=== PATIENT | male | born 1955 | race Caucasian/White ===

== ENCOUNTER 2021-06-19 16:16 | Outpatient (REF) | payer BC, OTHER, SELFPAY ==
[2021-06-21 13:07] LABS: COVID-19 RT-PCR UVMMC Result Negative (Negative)
== END 2021-06-19 16:17 | disposition home or self-care (01) ==
LOC: LBN 16:16
PROVIDERS: Visit Provider Family Medicine
DX: Z20.822 Contact with and (suspected) exposure to COVID-19 (principal)
CPT/HCPCS: U0003

== ENCOUNTER 2021-08-09 17:48 | Outpatient (REF) | payer BC, OTHER, SELFPAY | END 2021-08-09 17:49 | disposition home or self-care (01) | LOC: LBN 17:48 | PROVIDERS: PCP Nurse Practitioner Family; Visit Provider Nurse Practitioner Family | DX: H92.10 Otorrhea, unspecified ear (principal) | CPT/HCPCS: 87077; 87070; 87186; 87205 ==

== ENCOUNTER 2021-08-15 03:02 | Outpatient (CLI) | payer BC, SELFPAY ==
[2021-08-15 11:36] LABS: HCT 43.4 % (40.0-50.0); HGB 14.9 g/dL (13.5-17.5); MCH 31.7 pg (27.0-33.0); MCHC 34.3 % (32.0-36.0); MCV 92.3 fL (80-95); MPV 9.7 fL (8.0-11.0); Platelet Count 275 10^3/uL (130-400); RDW 12.8 % (11.8-14.1); WBC 6.07 10^3/uL (4.4-10.8)
[2021-08-15 12:47] LABS: Iron 179 ug/dL (65-175); Total Iron Binding Capacity 226 ug/dL (250-450); Transferrin Sat 79 % (20-55)
[2021-08-15 13:00] LABS: Ferritin 107 ng/mL (26-388)
[2021-08-15 13:28] LABS: TSH (W/Ref FT4) 3.96 uIU/mL (0.36-3.74)
[2021-08-15 13:50] LABS: FREE T4 1.14 ng/dL (0.76-1.46)
== END 2021-08-15 03:03 | disposition home or self-care (01) ==
LOC: LBO 03:02
PROVIDERS: Family Medicine; PCP Nurse Practitioner Family; Visit Provider Nurse Practitioner Family
DX: E03.9 Hypothyroidism, unspecified (principal); E83.119 Hemochromatosis, unspecified
CPT/HCPCS: 85027; 82728; 83540; 83550; 84439; 84443

== ENCOUNTER 2021-09-12 16:46 | Outpatient (CLI) | payer BC, OTHER, SELFPAY ==
[2021-09-12 15:08] LABS: Abs Immature Grans 0.04 10^3/uL (0.0-0.06); Absolute Basophil Count 0.07 10^3/uL (0.0-0.2); Absolute Eosinophil Count 0.43 10^3/uL (0.0-0.7); Absolute Lymphocyte Count 1.84 10^3/uL (1.2-3.4); Absolute Monocyte Count 0.79 10^3/uL (0.1-0.8); Basophils % 0.9; Eosinophils % 5.8; HCT 40.9 % (40.0-50.0); HGB 14.4 g/dL (13.5-17.5); Immature Grans % 0.5; Lymphocytes % 24.6; MCH 32.4 pg (27.0-33.0); MCHC 35.2 % (32.0-36.0); MCV 92 fL (80-95); MPV 10.4 fL (8.0-11.0); Monocytes % 10.6; Neutrophils % 57.6; Platelet Count 215 10^3/uL (130-400); RBC 4.45 10^6/uL (4.36-5.78); RDW 12.2 % (11.8-14.1); RDW-SD 41.1 fL; WBC 7.47 10^3/uL (4.4-10.8)
[2021-09-12 15:08] LABS: Bilirubin Small (Negative); Blood Negative (Negative); Clarity Clear (Clear); Glucose Negative (Negative); Ketones Negative (Negative); Leukocyte Esterase Negative (Negative); Nitrite Negative (Negative); Specific Gravity >= 1.030 (1.005-1.025); Urobilinogen 0.2 EU/dL (Up TO 0.2); pH 5.5 (5-8)
[2021-09-12 15:16] LABS: Bacteria Few HPF (Negative); Crystals Negative HPF (Negative); Epithelial Cells Few HPF (Negative); RBC 0-2 HPF (0-2); WBC 0-2 HPF (0-5)
[2021-09-12 15:17] LABS: C & S Indicated? No; Casts Negative LPF (Negative); Mucus Heavy (Negative)
[2021-09-12] MEDS: Gastrografin 120 ML BTL 25 ML PO (15:19)
[2021-09-12] MEDS: Barium Sulfate 2% W/V-Berry Smoothie 450 ML BTL 900 ML PO (15:23)
[2021-09-12 15:24] LABS: C-Reactive Protein 0.17 mg/dL (0.0-0.3); Lipase 87 U/L (73-393)
[2021-09-12 15:33] LABS: ALT 43 U/L (16-63); AST 16 U/L (15-37); Alkaline Phosphatase 97 U/L (46-116); Anion Gap 8.3 mmol/L (3-11); BUN 23 mg/dL (7-18); Bilirubin, Total 0.5 mg/dL (0.2-1.0); CO2 26.7 mmol/L (21.0-32.0); Calcium 8.7 mg/dL (8.5-10.1); Chloride 104 mmol/L (98-107); Glucose 103 mg/dL (74-106); Sodium 139 mmol/L (136-145); Total Protein 7.8 g/dL (6.4-8.2)
--- NOTE | 2021-09-12 16:38 | DI.CT_ITS ---
Exam(s) CT ABDOMEN PELVIS WO EXAM: CT ABDOMEN PELVIS WO CLINICAL HISTORY: mod-severe LLQ pain-eval acute process/ R19.8 R/O DIVERTICULITIS. TECHNIQUE: Imaging Protocol: Axial computed tomography images with coronal and sagittal reformatted images were created and reviewed. Oral: yes COMPARISON: No exams were available for comparison FINDINGS: ABDOMEN: Lung Bases: Lung normal where visualized. Heart size normal. Small hiatal hernia. Liver: Normal density. No measurable mass. Gallbladder and biliary tract: No radiodense calculus or dilation. Pancreas: Normal density, no abnormal calcifications or inflammatory process. Spleen: Normal. Kidneys: Normal size, contour and axis. No radiodense stones or obstructive uropathy. No masses seen. Adrenal glands: No masses seen. Lymph nodes: Within normal limits. Abdominal Aorta: Abdominal portion non-dilated. Minimal calcification. PELVIS: Bladder: Low volume. No gross wall thickening. Bowel: No obstruction or bowel wall thickening. Mild diverticulosis at the junction of the descendin g and sigmoid colon. No evidence of diverticulitis. Appendix normal. Peritoneal cavity: No ascites, collection or mesenteric inflammatory response. Reproductive organs: Enlarged prostate. 6.2 x 5.4 x 6.9 cm. Bones: Scoliosis and degenerative changes. IMPRESSION: Mild diverticulosis at the junction of descending and sigmoid colon. No evidence of diverticulitis o r other acute abnormality. Prostate is noted to be enlarged. RADIATION DOSE DELIVERED: 1,146.92mGy.cm Total DLP DATA REPOSITORY: All CT scans at this facility are submitted to the National Radiology Data Registry (NRDR) Dose Index Registry (DIR) with the [employer] (ACR). RADIATION OPTIMIZATION: All CT scans at this facility use at least one of these dose optimization te chniques: automated exposure control; mA and/or kV adjustment per patient size (includes targeted exa ms where dose is matched to clinical indication); or iterative reconstruction.
== END 2021-09-12 17:06 ==
PROVIDERS: PCP Nurse Practitioner Family; Visit Provider Family Medicine
DX: R10.32 Left lower quadrant pain (principal); I10 Essential (primary) hypertension; E03.9 Hypothyroidism, unspecified; K57.30 Diverticulosis of large intestine without perforation or abscess without bleeding; N40.0 Benign prostatic hyperplasia without lower urinary tract symptoms
CPT/HCPCS: 80053; 83690; 74176; 81003; 81015; 84443; 85025; 86140

== ENCOUNTER → 2022-02-27 01:42 | Outpatient (CLI) | payer BC, OTHER, SELFPAY ==
--- NOTE | 2022-02-27 08:30 | DI.MRI_ITS ---
Exam(s) MR LUMBAR SPINE WO/W EXAM: MR LUMBAR SPINE WO/W CLINICAL HISTORY: LUMBAR SCOLIOSIS, M41.9; DDD, LUMBAR, M51.36; LUMBAR STENOSIS, M48.061. TECHNIQUE: Multiplanar multisequence MRI of the Lumbar spine was performed. Both pre and post contra st infused sequences were performed. IV contrast injected was 19 mL Dotarem. Compared to prior MRI scan of 09/21/2021. COMPARISON: CT CT ABDOMEN PELVIS WO from 09/12/2021 MR MR LUMBAR SPINE WO from 09/21/2021 FINDINGS: There are no plain films available at the time of this MRI interpretation and therefore 5 lumbar vert ebrae are again presumed. Scoliosis convex left is again noted. The extent of scoliosis is unchanged. Epicenter of the scolio sis is again noted be at L1-2 and L2-3 levels where there is more prominent narrowing of the right si de of these disc spaces when compared to the left side of the disc spaces. Bones: Multilevel Modic type 2 sub endplate marrow fatty changes again noted, related to the multilev el chronic degenerative disc disease. No fractures nor ominous osseous lesions evident. Conus medullaris is at normal level. There is no evidence of conus mass nor subjacent clumping of in trathecal nerve roots to suggest arachnoiditis. The distal thecal sac appears unremarkable.There is no evidence of Tarlov intrasacral cysts nor other significant findings within the sacral canal. In this patient has had prior surgery there is no evidence of epidural nor some paraspinal abscess. No evidence of discitis nor osteomyelitis. There is no asymmetric atrophy of the psoas muscles. With respect to the individual levels... T12-L1: Relatively preserved disc height. There is again noted lateral left annular bulging into the floor of the exiting left neural foramen resulting in mild left-sided foraminal stenosis. Similar t o previous. Central canal dimensions are within normal limits. Mild facet arthropathy again noted. L1-2: This level again exhibits advanced disc space narrowing which is more prominent on the right si de of the disc space where there are again noted Modic type 2 sub endplate fatty marrow changes. The re is annular bulging into the floor of the exiting right neural foramen although there does not appe ar to be prominent foraminal stenosis. Exiting left neural foramen is patent. Central canal dimensi ons at this level are lower normal. Moderate bilateral facet arthropathy again noted. L2-3: There is surgical absence of posterior osseous elements again noted at this level. Central can al dimensions are lower normal. This level also again exhibits asymmetric advanced narrowing of the right side of the disc space with lesser amount of narrowing of the left side of the disc space.. Ap pearance of this level is similar to previous with disc/osteophyte bulging into the floor of the exit ing right neural foramen but no prominent foraminal stenosis on the right side at this level. On the left side there is an element of foraminal stenosis again noted, related to facet arthropathy. Esse ntially no change at this level from the prior MRI study. L3-4: This level again exhibits disc space narrowing on the left side with relative preservation of d isc height on the right side of the disc space. There is moderate severe central canal stenosis agai n noted at this level which is related to broad annular bulging and short AP dimensions the pedicles as well as facet arthropathy on both sides. There is also some posterior bony ridging again noted. Foraminal stenosis on the left side is again noted related to annular bulging and facet arthropathy. There is minimal foraminal narrowing on the opposite-right side. L4-5: This level exhibits decreased disc height on the left side annular bulging into the floor of th e exiting left neural foramen with mild left foraminal narrowing. Mild central canal stenosis at thi s level again noted. No foraminal stenosis on the right side. Moderate facet arthropathy, slightly more so on the left side. L5-S1: This level again exhibits normal disc height and signal with no disc herniation or canal steno sis nor foraminal stenosis on either side although there is some degenerative change in the facet carlos eduardo nts bilaterally at this level. Soft tissues: paraspinal soft tissues appear unremarkable.No evidence of paraspinal abscess. IMPRESSION: 1. As above but without significant change compared to prior MRI scan of 09/21/2021. 2. In this patient who has had prior surgery there is no evidence of epidural nor paraspinal abscess. There is also no evidence of discitis nor osteomyelitis. DATA REPOSITORY:
--- NOTE | 2022-02-27 08:30 | DI.MRI_ITS ---
Exam(s) MR CERVICAL SPINE WO EXAM: MR CERVICAL SPINE WO CLINICAL HISTORY: GAIT INSTABILITY, R26.81 TECHNIQUE: Multiplanar multisequence MRI of the cervical spine was performed without intravenous con trast. COMPARISON: There are no plain films of the MRI scan available at the time of this MRI interpretatio n. FINDINGS: CERVICOMEDULLARY JUNCTION: Intact with no evidence of cerebellar tonsillar ectopia. No obvious abnor mality of the odontoid process. No evidence of Chiari 1 malformation. CERVICAL SPINAL CORD: There is no abnormal signal in the cervical spinal cord and no evidence of foca l cord atrophy nor focal cord swelling. OSSEOUS:There are no cervical fractures evident. No significant osseous lesions in the cervical vert ebrae. INDIVIDUAL LEVELS: C2-3: No evidence of disc herniation or central canal stenosis. There are some degenerative changes in the facet joints at this level, left more so than right. Mild bilateral foraminal stenosis eviden t. C3-4: Normal disc height. Mild annular bulging without a distinct disc herniation. No central canal stenosis. Moderate degenerative changes evident in both facet joints at this level. Some bilateral foraminal stenosis is evident. C4-5: Normal disc height. No significant disc herniation. No central spinal canal stenosis. Modera te degenerative change in both facet joints. Mild bilateral foraminal stenosis. C5-6: This level exhibits chronic moderate-advanced disc space narrowing and anterior osteophytes. P osteriorly there is annular bulging and what appears to be a small left paracentral disc protrusion, more evident on the axial than on the sagittal images. This extends posteriorly 2 millimeters and is approximately 2 millimeters wide. Indents the thecal sac. There is no prominent central canal sten osis at this level. There are small Luschka joint osteophytes bilaterally at this level. There are mild degenerative changes in both facet joints. Mild bilateral foraminal stenosis. C6-7: This level also exhibits chronic disc space narrowing. There is mild symmetrical annular bulgi ng at this level but without a significant disc herniation. Central canal dimensions are lower betsey l. There are moderate degenerative changes in the left facet joint and minimal if any significant de generative changes in the right facet joint. There is mild left-sided foraminal stenosis. No obviou s foraminal stenosis on the right side. C7-T1: No disc herniation nor central canal stenosis. Moderate facet arthropathy on the left side wit h mild-moderate left-sided foraminal stenosis.. Mild facet changes on the right. IMPRESSION: 1. Degenerative disc disease at C5-6 and C6-7 levels with what appears to be a small 2 millimeter le ft paracentral disc protrusion at C5-6 level, as described above. There is, however, no significant central canal stenosis at this level nor elsewhere in the cervical spine. 2. There is multilevel foraminal stenosis as described above, this related to facet arthropathy at mu ltiple levels. 3. No abnormal signal in the cervical spinal cord. No focal cord swelling. No focal cord atrophy. No evidence of cerebellar tonsillar ectopia. DATA REPOSITORY:
[2022-02-27 09:06] LABS: CREATININE 1.2 mg/dL (0.70-1.30); Estimated GFR 66.28 (mL/min/1.73m2)
[2022-02-27] MEDS: Normal Saline Flush 10 ML SYR IVP (09:31)
[2022-02-27] MEDS: Gadoterate meglumine 20 ML SYRINGE 19 ML IVP (09:32)
== END ==
PROVIDERS: PCP Nurse Practitioner Family; Visit Provider Physician Assistant Surgical
DX: M47.812 Spondylosis without myelopathy or radiculopathy, cervical region (principal); M50.222 Other cervical disc displacement at C5-C6 level
CPT/HCPCS: 72158; 72141; 82565

== ENCOUNTER 2022-06-14 08:37 | Outpatient (CLI) | payer BC, OTHER, SELFPAY ==
[2022-06-14 12:39] LABS: TSH 4.92 uIU/mL (0.36-3.74)
== END 2022-06-14 08:38 | disposition home or self-care (01) ==
LOC: LOS 08:38
PROVIDERS: PCP Nurse Practitioner Family; Referring Provider Family Medicine; Visit Provider Family Medicine
DX: E03.9 Hypothyroidism, unspecified (principal)
CPT/HCPCS: 36415; 84443

== ENCOUNTER 2022-06-14 16:50 | Outpatient (REF) | payer BC, OTHER, SELFPAY | END 2022-06-14 16:51 | disposition home or self-care (01) | LOC: LBN 16:50 | PROVIDERS: PCP Nurse Practitioner Family; Visit Provider Family Medicine | DX: J02.9 Acute pharyngitis, unspecified (principal) | CPT/HCPCS: 87070 ==

== ENCOUNTER 2022-09-04 13:32 | Outpatient (CLI) | payer BC, OTHER, SELFPAY ==
--- NOTE | 2022-09-04 06:00 | DI.RAD_ITS ---
Exam(s) XR PAIN CLINIC LUMBAR SP 2V EXAM: XR PAIN CLINIC LUMBAR SP 2V CLINICAL HISTORY: Dx: Lumbar Radiculopathy. TECHNIQUE: Fluoroscopy was provided for the referring physician for guidance with performing pain cl inic injection procedure. COMPARISON: No exams were available for comparison FINDINGS: Please see procedure note for details. Fluoro time: 22.5 seconds RADIATION DOSE DELIVERED: Ka,r=11.4 mGy
[2022-09-04 13:47] VITALS: BP 120/83; PULSE 75; RESP 20; TEMP 36.6; O2SAT 96
--- NOTE | 2022-09-04 14:16 | PDOC.PAIN ---
Date of service: 09/04/22 Time of Service: 14:22 Pain Managment Procedure Note Procedure Note Procedure Note: CAUDAL EPIDURAL STEROID WITH CATHETER INJECTION PROCEDURE NOTE COMMENTS: I previously evaluated him in the office. He has a contrast allergy from [address] scan. No contrast was used today. Pre-procedure pain VAS was 7/10. Dx: Lumbosacral radiculopathy Jeremias Portillo has been referred to the [facility] for lumbar epidural steroid injection. Patient was greeted by the nurse who verified the patient?s name and .? Patient was then taken to the fluoroscopy suite. The patient was interviewed and the medical record was reviewed.? There were no medical, pharmacologic, radiographic, or other structural contraindications to attempting fluoroscopically guided caudal epidural steroid injection. Risks and expected side effects as well as potential benefits of the procedure were reviewed and voiced concerns addressed.? The patient consent form was signed.? Standard time-out procedure was performed. The patient was placed in the prone position on the fluoroscopy table and automated blood pressure cuff, pulse oximeter, and 3 lead EKG was applied.? The skin entry point for entering/approaching the sacral hiatus was marked.? Following thorough chlorhexadine preparation of the skin and draping and 1% lidocaine infiltration of the skin entry point and subcutaneous tissues, a 17 gauge Touhy needle was placed under fluoroscopic guidance through the sacral hiatus.? Needle tip placement and depth were aided and confirmed by fluoroscopy. There was no paresthesia or return of blood or CSF through the needle. A 19G Arrow spinal catheter was threaded to the L5-S1 height confirmed with fluoroscopy.? Aspiration was performed with no resulting blood or clear fluid. 1.5 cc of dexamethasone (10 mg/cc) was injected.? This was followed by 2 cc of 1% Lidocaine to flush the catheter.?There was not any unusual discomfort expressed.? The needle and catheter were removed together without difficulty. Vital signs were stable throughout the procedure and were as recorded in nursing records.? Follow up plans and appointments were discussed.? Post procedure instruction was given as documented in nursing records and having met discharge criteria and was discharged from the [facility]. Comments: Post-procedure pain VAS was 3/10. If he has at least 50% pain relief or 50% functional improvement for at least 3 months, this procedure can be repeated. Vladislav Ngo DO, MPH [facility] [place]
[2022-09-04 14:23] VITALS: BP 126/80; PULSE 86; RESP 16; O2SAT 95
[2022-09-04] MEDS: Dexamethasone Sod. Phos./Pres-Free 10 MG/ML VIAL IJ (14:31)
== END 2022-09-04 13:33 | disposition home or self-care (01) ==
PROVIDERS: PCP Nurse Practitioner Family; Visit Provider Preventive Medicine Occupational Medicine
DX: M47.26 Other spondylosis with radiculopathy, lumbar region (principal)
CPT/HCPCS: 62323; 72100

== ENCOUNTER 2022-10-21 14:02 | Outpatient (CLI) | payer BC, SELFPAY ==
[2022-10-21 14:50] LABS: Magnesium 2.2 mg/dL (1.8-2.4); Vitamin B12 297 pg/mL (193-986)
== END 2022-10-21 14:03 | disposition home or self-care (01) ==
LOC: LBO 14:07
PROVIDERS: PCP Nurse Practitioner Family; Visit Provider Family Medicine
DX: E83.119 Hemochromatosis, unspecified (principal)
CPT/HCPCS: 36415; 82607; 83735

== ENCOUNTER 2022-11-04 14:30 | Outpatient (CLI) | payer BC, OTHER, SELFPAY ==
--- NOTE | 2022-11-04 14:30 | RT.EKG_ITS ---
APPROVED REPORT Exam: Resting ECG Reason for Exam: Heart rate high Patient Location: O HR:113 bpm ECG Measurements Heart Rate 113 AXIS TN 143 P 47 QRSd 92 QRS 2 QT 315 T 28 QTc 432 Conclusion Sinus tachycardia...rate> 99 Otherwise normal ECG
== END 2022-11-04 14:31 | disposition home or self-care (01) ==
PROVIDERS: PCP Nurse Practitioner Family; Visit Provider Physician Assistant
DX: R07.89 Other chest pain (principal)
CPT/HCPCS: 93010

== ENCOUNTER 2022-12-24 09:51 | Outpatient (CLI) | payer BC, OTHER, SELFPAY ==
--- NOTE | 2022-12-24 06:00 | DI.RAD_ITS ---
Exam(s) XR PAIN CLINIC LUMBAR SP 2V EXAM: XR PAIN CLINIC LUMBAR SP 2V CLINICAL HISTORY: Dx: Lumbar Radiculopathy. TECHNIQUE: Fluoroscopy was provided for the referring physician for guidance with performing pain cl inic injection procedure. COMPARISON: No exams were available for comparison FINDINGS: Please see procedure note for details. Fluoro time: 23.5 seconds RADIATION DOSE DELIVERED: Ka,r=16.25 mGy
[2022-12-24 10:16] VITALS: BP 133/85; PULSE 71; RESP 20; TEMP 36.7; O2SAT 96
[2022-12-24] MEDS: Dexamethasone Sod. Phos./Pres-Free 10 MG/ML VIAL IJ (11:23)
[2022-12-24 11:24] VITALS: BP 145/91; PULSE 73; RESP 19; O2SAT 98
--- NOTE | 2022-12-24 13:28 | PDOC.PAIN ---
Date of service: 12/24/22 Time of Service: 12:00 Pain Managment Procedure Note Procedure Note Procedure Note: PROCEDURE NOTE CAUDAL EPIDURAL STEROID INJECTION Date of Service: December 24, 2022 Patient:Jeremias Koehler? Provider:? Vladislav Ngo DO, MPH Jeremias Portillo has been referred to the [facility] for caudal epidural steroid injection.? Pre-operative diagnosis: Lumbosacral Radiculopathy Post-operative diagnosis: Same Pre-Procedure Pain: VAS= 8/10. COMMENTS: He had this procedure on 09/04/2022 and had >50% pain relief for >3 months. He has also been move active with his grandchildren. Juanwas interviewed and the medical record was reviewed.? There were no medical, pharmacologic, radiographic or other structural contraindications to attempting fluoroscopically guided epidural steroid injection.? Risks and expected side effects as well as potential benefit of the procedure were reviewed with Juan, and the patient's voiced concerns were addressed.? The printed consent form was signed.? Standard time-out procedure was performed. Juan was placed in the prone position on the fluoroscopy table and automated blood pressure cuff and pulse oximeter applied.? The skin entry point for entering/approaching the epidural space by a caudal approach through the sacral hiatus ed identified with surgical skin marking.? Following thorough chlorhexidine preparation of the skin and draping and 1% lidocaine infiltration of the skin entry point and subcutaneous tissues, a 17 gauge Touhy needle was placed under fluoroscopic guidance? into the epidural space. Needle tip placement and depth were aided and confirmed by fluoroscopy in the lateral and AP position. There was no paresthesia or return of blood or CSF through the needle. 1 cc of Omnipaque 240 was injected with clear epidural spread confirmed with fluoroscopy. An Arrow 19G radio-opaque epidural catheter was advanced into the epidural space to the L5-S1 level and 2 cc of Omnipaque 240 was injected with clear epidural spread. 80 mg of Depo-Medrol was? injected. There was no unusual discomfort expressed by Jeremias. The needle and catheter were then flushed with 1 cc of 1% Lidocaine and they were removed together without difficulty (49 cc of Omnipaque was wasted). Jeremias was observed and was without hemodynamic, neurologic, or allergic reactions.? Fluoroscopic images were digitally archived. Jeremias's vital signs were stable throughout the procedure and were as recorded in the docflowsheet by the nursing staff.? If given, dosages of intravenous drugs for anxiolysis and analgesia were documented in MAR. Follow up plans and appointments were discussed with Jeremias.? Post procedure instruction was given as documented in nursing documentation and having met discharge criteria, Jeremias [facility] the [facility]. ? COMMENTS: No apparent complications.? Post-procedure pain: VAS= 3/10. If the patient receives at least 50% improvement in pain and/or function for at least 3 months, this procedure can be repeated. I personally completed the entire procedure. VLADISLAV NGO DO, MPH [facility] - Subspecialty board certification in Pain Medicine [facility]
== END 2022-12-24 09:52 | disposition home or self-care (01) ==
LOC: PC 09:51
PROVIDERS: PCP Nurse Practitioner Family; Visit Provider Preventive Medicine Occupational Medicine
DX: M54.50 Low back pain, unspecified (principal); M54.17 Radiculopathy, lumbosacral region
CPT/HCPCS: 62323; 72100

== ENCOUNTER → 2023-10-03 13:04 | Outpatient (BNVA) | payer MEDICARE, OTHER, SELFPAY | PROVIDERS: PCP Nurse Practitioner Family; Referring Provider Nurse Practitioner Family; Visit Provider Physical Therapy Assistant | DX: L72.3 Sebaceous cyst (principal) | CPT/HCPCS: 11402 ==

== ENCOUNTER → 2023-10-10 13:13 | Outpatient (BNVA) | payer MEDICARE, OTHER, SELFPAY | PROVIDERS: PCP Nurse Practitioner Family; Referring Provider Nurse Practitioner Family; Visit Provider Physical Therapy Assistant | DX: Z48.02 Encounter for removal of sutures (principal) ==

== ENCOUNTER 2023-10-21 05:20 | Outpatient (CLI) | payer MEDICARE, OTHER, SELFPAY ==
[2023-10-21 13:26] LABS: CREATININE 1.4 mg/dL (0.70-1.30); Calculated LDL 124 mg/dL (<100); Cholesterol 204 mg/dL (<200); Estimated GFR 54.41 (mL/min/1.73m2); HDL Cholesterol 34 mg/dL (40-60); Potassium 3.8 mmol/L (3.5-5.1); TSH (W/Ref FT4) 7.87 uIU/mL (0.36-3.74); Triglyceride 234 mg/dL (<150)
[2023-10-21 14:11] LABS: FREE T4 1.09 ng/dL (0.76-1.46)
[2023-10-21 20:28] LABS: PSA, Screening 5.5 ng/mL (<=4.5)
== END 2023-10-21 05:21 | disposition home or self-care (01) ==
LOC: LOS 05:20
PROVIDERS: PCP Nurse Practitioner Family; Visit Provider Nurse Practitioner Family
DX: I10 Essential (primary) hypertension (principal); E03.9 Hypothyroidism, unspecified; R79.89 Other specified abnormal findings of blood chemistry; Z12.5 Encounter for screening for malignant neoplasm of prostate
CPT/HCPCS: 36415; 80061; 84153; 82565; 84132; 84439; 84443

== ENCOUNTER → 2023-10-22 12:41 | Outpatient (BNVA) | payer MEDICARE, BC, OTHER, SELFPAY | PROVIDERS: PCP Nurse Practitioner Family; Referring Provider Nurse Practitioner Family; Visit Provider Physician Assistant Surgical | DX: G47.33 Obstructive sleep apnea (adult) (pediatric) (principal); R05.3 Chronic cough | CPT/HCPCS: 99205 ==

== ENCOUNTER → 2023-11-04 10:17 | Outpatient (BNVA) | payer MEDICARE, BC, OTHER, SELFPAY | PROVIDERS: PCP Nurse Practitioner Family; Referring Provider Nurse Practitioner Family; Visit Provider Physical Therapy Assistant | DX: L72.3 Sebaceous cyst (principal) | CPT/HCPCS: 99213 ==

== ENCOUNTER → 2023-11-10 11:15 | Outpatient (BNVA) | payer MEDICARE, BC, OTHER, SELFPAY | PROVIDERS: PCP Nurse Practitioner Family; Referring Provider Nurse Practitioner Family; Visit Provider Surgery | DX: L72.3 Sebaceous cyst (principal); L72.0 Epidermal cyst; L91.8 Other hypertrophic disorders of the skin; L57.0 Actinic keratosis; L82.1 Other seborrheic keratosis; L57.8 Other skin changes due to chronic exposure to nonionizing radiation; M79.89 Other specified soft tissue disorders | CPT/HCPCS: 99213 ==

== ENCOUNTER → 2023-11-11 02:30 | Outpatient (CLI) | payer MEDICARE, BC, OTHER, SELFPAY ==
--- NOTE | 2023-11-11 07:45 | DI.CT_ITS ---
Exam(s) CT CHEST WO EXAM: CT CHEST WO CLINICAL HISTORY: chronic cough,r05.3,adult sleep apnea,g47.33. TECHNIQUE: Multi planar reconstructions were performed. CONTRAST MATERIAL: None COMPARISON: No exams were available for comparison FINDINGS: CHEST: LUNGS: There are no confluent infiltrates nor pleural effusions. Tiny granulomas noted bilaterally. On thin slice imaging the diameter of lower lobe bronchi are upper normal. No significant bronchial cuffing. There does not appear to be an increased amount of secretions within the airways. There d oes not appear to be obvious fusiform nor saccular bronchiectasis. No lung scarring. No significant findings in the trachea and mainstem bronchi. MEDIASTINUM: There is no obvious hilar nor mediastinal adenopathy. Visualized thyroid unremarkable.No obvious axillary adenopathy CARDIAC: Heart size is normal. There is no pericardial effusion.Caliber of the thoracic aorta is wit hin normal limits. VISUALIZED UPPER ABDOMEN:No adrenal masses. No splenomegaly. OSSEOUS: Bilateral shoulder prostheses. No fractures. No significant osseous lesions in the chest.. IMPRESSION: 1. Mild findings without evidence of infiltrates nor pleural effusions. No increased secretions in t he bronchial tree.. 2. Normal heart size. No pericardial effusion. 3. No intrathoracic adenopathy. RADIATION DOSE DELIVERED: 631.09mGy.cm Total DLP DATA REPOSITORY: All CT scans at this facility are submitted to the National Radiology Data Registry (NRDR) Dose Index Registry (DIR) with the [employer] (ACR). RADIATION OPTIMIZATION: All CT scans at this facility use at least one of these dose optimization te chniques: automated exposure control; mA and/or kV adjustment per patient size (includes targeted exa ms where dose is matched to clinical indication); or iterative reconstruction.
== END ==
PROVIDERS: PCP Nurse Practitioner Family; Visit Provider Physician Assistant Surgical
DX: G47.33 Obstructive sleep apnea (adult) (pediatric) (principal); R05.3 Chronic cough
CPT/HCPCS: 71250

== ENCOUNTER → 2023-11-25 15:00 | Outpatient (BNVA) | payer MEDICARE, BC, OTHER, SELFPAY | PROVIDERS: PCP Nurse Practitioner Family; Referring Provider Nurse Practitioner Family; Visit Provider Physician Assistant Surgical | DX: R05.3 Chronic cough (principal); G47.33 Obstructive sleep apnea (adult) (pediatric) | CPT/HCPCS: 99214 ==

== ENCOUNTER → 2023-12-09 02:44 | Outpatient (CLI) | payer MEDICARE, BC, OTHER, SELFPAY ==
--- NOTE | 2023-12-09 06:45 | DI.US_ITS ---
Exam(s) US SOFT TISSUE EXTREMITY EXAM: US SOFT TISSUE EXTREMITY CLINICAL HISTORY: superior aspect rt shoulder, ? lipoma,m79.89. TECHNIQUE: Ultrasound was performed using standard protocol. COMPARISON: CT CT CHEST WO from 11/11/2023 FINDINGS: Sonographic assessment utilizing grayscale and color Doppler imaging was performed and targeted to th e area of clinical concern the superior aspect of the right shoulder. The area of palpable abnormality corresponds with 5.4 x 1.8 by 5.5 centimeter fatty echogenicity in c apsulated lesion consistent with a simple lipoma. No vascularity, areas of shadowing or soft tissue components. IMPRESSION: Palpable abnormality in superior right shoulder corresponds to a 5.5 centimeter lipoma. DATA REPOSITORY:
== END ==
PROVIDERS: PCP Nurse Practitioner Family; Visit Provider Surgery
DX: M79.89 Other specified soft tissue disorders (principal); D17.21 Benign lipomatous neoplasm of skin and subcutaneous tissue of right arm
CPT/HCPCS: 76881

== ENCOUNTER → 2023-12-11 07:46 | Outpatient (BNVA) | payer MEDICARE, BC, OTHER, SELFPAY | PROVIDERS: PCP Nurse Practitioner Family; Referring Provider Nurse Practitioner Family; Visit Provider Surgery | DX: L57.0 Actinic keratosis (principal); L72.0 Epidermal cyst; L82.1 Other seborrheic keratosis; D17.1 Benign lipomatous neoplasm of skin and subcutaneous tissue of trunk; L91.8 Other hypertrophic disorders of the skin; L72.3 Sebaceous cyst | CPT/HCPCS: 11200; 17004 ==

== ENCOUNTER → 2023-12-17 12:05 | Outpatient (CLI) | payer MEDICARE, BC, OTHER, SELFPAY ==
--- NOTE | 2023-12-17 10:50 | DI.RAD_ITS ---
Exam(s) XR KNEE RT 3V AP,LAT,TAINA EXAM: XR KNEE RT 3V AP,LAT,TAINA CLINICAL HISTORY: Worsening pain R52. TECHNIQUE: 2D digital imaging was performed. Three views. COMPARISON: CR XR KNEE LT 3V AP,LAT,TAINA from 12/17/2023 FINDINGS: BONES: No acute fracture is present. No bony destructive lesion is seen. JOINTS: The knee is normally aligned. No joint effusion is seen. Mild narrowing of the medial femoral tibial joint. Periarticular spurring throughout. Chondrocalcinosis. SOFT TISSUE: Normal. IMPRESSION: Xqsd-cy-xsgorsvt degenerative changes and chondrocalcinosis. DATA REPOSITORY: RADIATION DOSE DELIVERED:
--- NOTE | 2023-12-17 10:50 | DI.RAD_ITS ---
Exam(s) XR ANKLE RT COMPLETE EXAM: XR ANKLE RT COMPLETE CLINICAL HISTORY: Worsening pain, R52. TECHNIQUE: 2D digital imaging was performed. Three views. COMPARISON: No exams were available for comparison FINDINGS: BONES: No acute fracture is present. No bony destructive lesion is seen. Multiple subchondral cysts in the distal tibia and talar dome. Remodeling of the distal tibia and talar dome with flattening an d widening in the AP dimension. Prominent os trigonum. Plantar calcaneal spur. JOINTS: Severe degenerative changes of the tibiotalar and fibulotalar joints. There is obliteration of the joint space and cortical irregularity. Degenerative changes are also present at the tal[place]ca popeye joint and its intertarsal joints. SOFT TISSUE: Vascular calcification. IMPRESSION: Severe degenerative changes of the tibiotalar joint. DATA REPOSITORY: RADIATION DOSE DELIVERED:
--- NOTE | 2023-12-17 10:50 | DI.RAD_ITS ---
Exam(s) XR ANKLE LT COMPLETE EXAM: XR ANKLE LT COMPLETE CLINICAL HISTORY: Worsening pain, R52 TECHNIQUE: 2D digital imaging was performed. Three views. COMPARISON: CR XR ANKLE RT COMPLETE from 12/17/2023 FINDINGS: BONES: No acute fracture is present. No bony destructive lesion is seen. Subchondral cysts noted in d istal tibia and talar dome as well as distal fibula at the level of the ankle mortise. Plantar calca popeye spur. Prominent os trigonum. JOINTS:Severe narrowing of the medial tibial talar joint, with a wxfn-dv-hcnd appearance. Severe isabel rowing also seen at the lateral tibiotalar joint. Degenerative changes with spurring of the intertar elisa regions. SOFT TISSUE: Mild vascular calcifications visible. IMPRESSION: Advanced degenerative changes of the of the tibiotalar joint DATA REPOSITORY: RADIATION DOSE DELIVERED:
--- NOTE | 2023-12-17 10:50 | DI.RAD_ITS ---
Exam(s) XR KNEE LT 3V AP,LAT,TAINA EXAM: XR KNEE LT 3V AP,LAT,TAINA CLINICAL HISTORY: Worsening pain R52. TECHNIQUE: 2D digital imaging was performed. Three views. COMPARISON: No exams were available for comparison FINDINGS: BONES: No acute fracture is present. No bony destructive lesion is seen. JOINTS: Moderate to severe narrowing of the medial femoral tibial joint space. Periarticular spurrin g. Mild varus angulation. Chondrocalcinosis. Mild spurring at the tibial spines and intercondylar notch. More prominent spurring noted at the patellofemoral joint. A small joint effusion is seen. SOFT TISSUE: Posterior loose body. IMPRESSION: Severe degenerative changes of the medial femoral tibial joint. DATA REPOSITORY: RADIATION DOSE DELIVERED:
== END ==
PROVIDERS: PCP Nurse Practitioner Family; Visit Provider Nurse Practitioner Family
DX: R52 Pain, unspecified (principal); M19.071 Primary osteoarthritis, right ankle and foot; M17.0 Bilateral primary osteoarthritis of knee; M19.072 Primary osteoarthritis, left ankle and foot
CPT/HCPCS: 73562; 73610

== ENCOUNTER → 2023-12-25 09:07 | Outpatient (BNVA) | payer MEDICARE, BC, OTHER, SELFPAY | PROVIDERS: PCP Nurse Practitioner Family; Referring Provider Nurse Practitioner Family; Visit Provider Surgery | DX: K20.80 Other esophagitis without bleeding (principal); R10.32 Left lower quadrant pain; Z80.0 Family history of malignant neoplasm of digestive organs | CPT/HCPCS: 99215 ==

== ENCOUNTER 2024-01-01 10:20 | Outpatient (CLI) | payer MEDICARE, BC, OTHER, SELFPAY ==
[2024-01-01 10:44] VITALS: BP 120/75; PULSE 74; RESP 18; TEMP 36.7; O2SAT 98
[2024-01-01 11:02] VITALS: PULSE 78; RESP 14; O2SAT 99
[2024-01-01 11:10] VITALS: PULSE 74; RESP 18; O2SAT 99
[2024-01-01 11:15] VITALS: BP 136/103
--- NOTE | 2024-01-01 11:19 | DI.RAD_ITS ---
Exam(s) XR PAIN CLINIC LUMBAR SP 2V EXAM: XR PAIN CLINIC LUMBAR SP 2V CLINICAL HISTORY: DX: Lumbar Radiculopathy. TECHNIQUE: Fluoroscopy was provided for the referring physician for guidance with performing pain cl inic injection procedure. COMPARISON: No exams were available for comparison FINDINGS: Please see procedure note for details. Fluoro time: 43.4 seconds RADIATION DOSE DELIVERED: Ka,r=23.49 mGy
[2024-01-01] MEDS: Nerve Block Tray 1 EACH MC (11:23)
[2024-01-01] MEDS: Dexamethasone Sod. Phos./Pres-Free 10 MG/ML VIAL IJ (11:23)
--- NOTE | 2024-01-01 11:42 | PDOC.PAIN ---
Date of service: 01/01/24 Time of Service: 11:42 Pain Managment Procedure Note Procedure Note Procedure Note: PROCEDURE NOTE CAUDAL EPIDURAL STEROID INJECTION Date of Service: January 01, 2024 Patient:Jeremias Koehler? Provider:? Vladislav Ngo DO, MPH Jeremias Portillo has [facility] for caudal epidural steroid injection.? Pre-operative diagnosis: Lumbosacral Radiculopathy Post-operative diagnosis: Same Pre-Procedure Pain: VAS= 7/10 to legs. COMMENTS: He last had this procedure on 12/24/22 and had >6 months of >50% pain and functional improvement. He has a contrast allergy. Juanwas interviewed and the medical record was reviewed.? There were no medical, pharmacologic, radiographic or other structural contraindications to attempting fluoroscopically guided epidural steroid injection.? Risks and expected side effects as well as potential benefit of the procedure were reviewed with Juan, and the patient's voiced concerns were addressed.? The printed consent form was signed.? Standard time-out procedure was performed. Juan was placed in the prone position on the fluoroscopy table and automated blood pressure cuff and pulse oximeter applied.? The skin entry point for entering/approaching the epidural space by a caudal approach through the sacral hiatus identified with surgical skin marking.? Following thorough chlorhexidine preparation of the skin and draping and 1% lidocaine infiltration of the skin entry point and subcutaneous tissues, a 17 gauge Touhy needle was placed under fluoroscopic guidance? into the epidural space. Needle tip placement and depth were aided and confirmed by fluoroscopy in the lateral and AP position. There was no paresthesia or return of blood or CSF through the needle. An Arrow 19G radio-opaque epidural catheter was advanced into the epidural space to the L5-S1 level. 15 mg of Dexamethasone was? injected. There was no unusual discomfort expressed by Jeremias. The needle and catheter were then flushed with 1 cc of 1% Lidocaine and they were removed together without difficulty (49 cc of Omnipaque was wasted). Jeremias was observed and was without hemodynamic, neurologic, or allergic reactions.? Fluoroscopic images were digitally archived. Jeremias's vital signs were stable throughout the procedure and were as recorded in the docflowsheet by the nursing staff.? If given, dosages of intravenous drugs for anxiolysis and analgesia were documented in JUL. Follow up plans and appointments were discussed with Jeremias.? Post procedure instruction was given as documented in nursing documentation and having met discharge criteria, [facility] ? COMMENTS: No apparent complications.? Post-procedure pain: VAS= 0/10 to the legs. If the patient receives at least 50% improvement in pain and/or function for at least 3 months, this procedure can be repeated. I personally completed the entire procedure. VLADISLAV NGO DO, MPH ABPM[employer]R - Subspecialty board certification in Pain Medicine [facility]
== END 2024-01-01 10:21 | disposition home or self-care (01) ==
LOC: PC 10:20
PROVIDERS: PCP Nurse Practitioner Family; Visit Provider Preventive Medicine Occupational Medicine
DX: M54.50 Low back pain, unspecified (principal); M54.17 Radiculopathy, lumbosacral region
CPT/HCPCS: 62323; 72100; J1100

== ENCOUNTER 2024-01-20 08:33 | Day surgery (SDC) | payer MEDICARE, BC, OTHER, SELFPAY ==
--- NOTE | 2024-01-19 12:41 | PDOC.DSDIS_ITS ---
Date of service: 01/20/24 Time of Service: 15:02 Discharge Plan Disposition Patient Disposition: Home Condition: Improving Discharge Details Reason For Visit: stomach/colon scopes and lipoma removal Attending Provider: Judi Beard Primary Care Provider: Santana Cordova Home Meds and New Rx's Prescriptions: Continued clotrimazole 1 % cream 1 applic topical TID 7 Days Qty: 30 2RF Patient Comments: Not using currently cyclobenzaprine 10 mg tablet 10 mg PO TID PRN (Reason: muscle spasm) Qty: 90 2RF ketoconazole 2 % shampoo 1 applic topical ONCE Qty: 120 8RF Rx Instructions: Use one time per week. metoprolol tartrate 25 mg tablet 25 mg PO BID Qty: 180 3RF albuterol sulfate 90 mcg/actuation HFA aerosol inhaler 2 puff inhalation QID PRN (Reason: shortness of breath or wheezing) Qty: 8.5 12RF Patient Comments: Pt not taking omeprazole 40 mg capsule,delayed release(DR/EC) 40 mg PO DAILY Qty: 90 3RF levothyroxine 100 mcg capsule 100 mcg PO DAILY Qty: 90 3RF amlodipine 5 mg tablet 5 mg PO DAILY Qty: 90 3RF diclofenac sodium 75 mg tablet,delayed release (DR/EC) 75 mg PO BID Patient Comments: TAKE ONE TABLET BY MOUTH TWICE A DAY Discontinued bisacodyl [Dulcolax (bisacodyl)] 5 mg tablet,delayed release (DR/EC) 5 mg PO ONCE Qty: 4 0RF Patient Comments: Not taking Rx Instructions: take per colonoscopy instructions polyethylene glycol 3350 17 gram/dose powder 238 g PO ONCE Qty: 238 0RF Patient Comments: Not currently taking Rx Instructions: take per colonoscopy instructions No Action prochlorperazine maleate [Compazine] 5 mg tablet 5 mg PO TID PRN (Reason: nausea and vomiting) Qty: 7 0RF Discharge Instructions Additional Instructions: DSU Colonoscopy Post- Op Instructions Instructions for Everyone who is given Anesthesia: For your safety, please do the following for the next twenty-four (24) hours: *Do Not operate a motor vehicle (car, truck, motorcycle, etc.) *Do Not drink alcoholic beverages or use any recreational drugs for the first 24 hours or while taking pain medications. The medications in your body may have a reaction that can be dangerous. *Do Not make any important decisions or sign any important papers. Findings: Upper- mild reflux lower- Internal hemorrhoids (these were banded) Follow up: 2 weeks 1. No lifting over 20 pounds or strenuous activity for the first 24 hours after your procedure. After 24 hours there are no restrictions on your activity but you may feel fatigued for a few days. 2. After you arrive home you may have a light meal and return to your normal diet as you can tolerate it without feeling sick to your stomach. 3. You may have a bloated, gaseous feeling in your belly (abdomen) after a colonoscopy. Passing gas and belching will help. Walking or lying down on your left side with your knees flexed may relieve the discomfort. Call the office at [phone] (Office) or [phone] (Hospital) right away if you notice any of the following: a.Vomiting of blood or ?coffee ground stools?. b.Rectal bleeding 1Tbsp, blood clots or continuous bleeding. c.Severe belly (abdominal) pain. d.A hard distended belly (abdomen) and an inability to pass gas. 4. Please don?t expect to have a normal BM (bowel movement) for 2-3 days after your procedure. 5. If there are questions regarding the findings of your procedure, please contact your doctor 6. If you are unable to contact your doctor with a problem, contact the hospital at [phone]. 7. Continue all your regular medications unless directed otherwise. Continue with lifestyle modifications: no alcohol, tobacco products, Aspirin or NSAID's (ibuprofen, Motrin, Naprosyn, aleve, etc), soda pop/any carbonated beverages, caffeine (including tea & chocolate), and acidic foods, (tomatoes, citrus, onions, peppermints) spicy or fried/fatty foods. Do not lie down for 30 minutes after eating, and do not eat 2 hours prior to bedtime. Avoid wearing tight fitting clothing/ belts INSTRUCTIONS AFTER RUBBER BAND LIGATION RUBBER BANDS: There are many methods of treating hemorrhoids. Rubber band ligation is done by application of a small rubber band over the hemorrhoid. The bands, being elastic, tighten and strangulate the hemorrhoid until it falls off. Since internal hemorrhoids usually do not have much sensation to pain, this method is easily tolerated. However, external hemorrhoids are very sensitive, and this method cannot be used for them. ?AFTER THE PROCEDURE: ?It is not uncommon to feel a dull ache for a day or two. This sensation may be noted as soon as the rubber band is applied. Occasionally, it will make you feel as if you want to have a bowel movement. For this ache or discomfort, a great majority of patients either take no medication or they take a few Tylenol. (NOTE: AVOID THE USE OF ASPIRIN, ADVIL, OR MOTRIN (IBUPROFEN), ALEVE, ARTHRITIS MEDICATIONS, OR BLOOD THINNERS FOR ONE WEEK). Taking warm Sitz baths or sitting in a bath tub of warm water for 15 minutes will also relieve this discomfort. ?DIET: You may resume your regular diet. It is important to keep your bowel movements reasonably soft. You should take a bulk laxative (bran, Metamucil, Konsyl, Citrucel etc) daily to avoid hard stools or diarrhea. ?ACTIVITY: You may resume your normal activities such as driving a car, work, and sports.? Avoid ?saddle? type activities for two weeks- horse back rising, cycling, motorcycles/all-terrain vehicles. ?PRECAUTIONS: Banded hemorrhoid will drop off in about 3-10 days. Usually you will not notice anything other than some minor bleeding. Should severe bleeding (half a cup of blood at a time or more) occur, you should contact us immediately. If pain persists past 48 hours, or if it is not controlled by pain pills, or if there is urinary difficulty please call the office. Although this treatment is safe and effective, rare instances of severe infection or bleeding can occur. The main symptoms of infection are severe pain, chills and fever, and inability to urinate. Wound Care Instruction Pain Control Use ice!? Ice keeps the swelling down and swelling is what causes pain.? Never apply ice directly to the skin.? Wrap it in a towel or cloth.? Apply ice 20 minutes on and 20 minutes off for pain control.? Use as needed. Take Tylenol 500 mg by mouth with food every 4 hours as needed for pain. Or ibuprofen 600 mg by mouth with food every 6 hours as needed for pain.? Do not take Tylenol if you have a history of heavy drinking, hepatitis C or liver problems.? Do not take ibuprofen if you have a history of stomach ulcers/problems, bleeding problem or kidney issues. ? Always wash your hands before touching your incision. ? Keep the incision clean, dry, and out of water, keep the incision out of water. ? Do not to pick at the scabs. Scabs help protect the wound. ? You can take a shower in 24 hours and wash the incision with soap and water. Pat dry/don?t scrub. It?s OK to wash around the incision. But don?t spray water directly on it. ? Pat stitches dry if they get wet. Don't rub. ? Check the incision site daily for pain, redness, drainage, swelling, or separation of the incision edges. ? Make sure any clothing that touches the incision is loose-fitting. This will prevent rubbing. As your incision heals, the skin may appear pink or red. It may also feel slightly bumpy or raised. This is called a healing ridge. Over time, the color should fade and the raised skin will become less noticeable. When to seek medical care Call your healthcare provider right away if you have any of these: ? More pain, redness, swelling, bleeding, or foul-smelling discharge around the incision area ? Fever of 101?F (38.3?C) or higher, or as directed by your child's healthcare provider ? Shaking chills ? Vomiting or nausea that doesn?t go away ? Numbness, coldness, or tingling around the incision area, or changes in skin color ? Opening of the sutures or wound -Stitches or ghanshyam that come apart or fall out or surgical tape falls off before 7 days, or as directed by your healthcare provider ?[facility]: [phone] I understand the above instructions and have no questions. Signature of Patient or Adult Escort Name of Responsible Adult Escort Signature of Nurse Date/Time Stand Alone Forms: Anesthesia Discharge Armond Odell (DSU) Activity:: see above Diet:: see above Discharge Orders Discharge Orders: Discharge Order (Routine); Ordered 01/20/24 Ordered By: Judi Beard DS: Diagnosis Discharge Diagnosis (1) Essential hypertension: Status: Acute (2) Hypertensive disorder: Status: Chronic (3) GERD (gastroesophageal reflux disease): Status: Chronic Asessment and Plan: The patient is seen and examined after their colonoscopy.? The patient has been able to pass gas.? They are not having abdominal pain.? They have been able to tolerate liquids and a snack.? They do not have any nausea or vomiting.? They are not having any chest pain or shortness of breath.??? They are not having any rectal bleeding. Their vital signs have been stable-see nursing notes. We discussed findings during their colonoscopy, and any biopsies that were done/polyps that were removed. The patient will be sent a letter with any biopsy results, and when to repeat the colonoscopy.-see discharge instructions. Patient was given explicit instructions to follow-up regarding colonoscopy-refer to discharge instructions.? We reviewed resumption of medications. Patient verbalized understanding and discharged in stable and satisfactory cond ition- See nursing notes. (4) Esophagitis, [place] grade A: Status: Acute (5) Mild chronic gastritis: Status: Acute (6) LLQ abdominal pain: Status: Acute (7) Hemochromatosis: Status: Acute (8) Family history of colon cancer in mother: Status: Acute (9) Lipoma of abdominal wall: Status: Acute (10) Hypothyroidism: Status: Chronic
--- NOTE | 2024-01-19 12:44 | W.COLOREPORT ---
Date of service: 01/20/24 Time of Service: 15:06 Colonoscopy Report Date of procedure: 01/20/24 Pre-op diagnosis general: family history Post-op diagnosis procedure note: other (internal hemorrhoids ) Surgeon: Judi Beard Anesthesia Type: General:No Airway Estimated blood loss (mL): 2 Pathology: none sent Complications: None Disposition: same day Prep: Miralax/Dulcolax Retraction Time: 15 Procedure Description: After informed consent was obtained, explaining risks of the procedure, including but not limits to: bleeding, infections, complications of anesthesia, perforations (which may require antibiotics and /or surgery and stay in the hospital), and abdominal pain/cramping. The patient was taken to the procedure room and placed in a left decubitous position. Monitors were applied and a time out was done. The patients name, date of , procedure, allergies to medications and metal in their body was reviewed. The patient was then sedated. Once sedated and comfortable a rectal exam was done. External exam was normal. Internal exam revealed a normal sphincter tone and no palpable masses. The prostate- not palpable The previously lubricated Olympus scope was then introduced (see RN notes for scope number) and retrofelexed. Garde II internal hemorrhoids x3 columns were identified. The scope was then advanced to the cecum without difficulty. The TI and appendiceal orifice were identified. The scope was then slowly retracted over minutes back into the rectum. Polyps: none. Diverticula: none. The mucosa is pink and healthy w/ a normal vascular pattern. The scope was removed, and the patient was woken up and taken back to Same day surgery in stable condition. .? All risks, benefits and alternative forms of therapy were described and informed consent was obtained, explaining risks and benefits of the procedure including but not limited to: bleeding/infection/recurrence/complications of anesthesia/need for repeat procedure. In the Left Lateral Decubitus position anoscopic examination revealed grade 2, hemorrhoids in the RA,/ 11 o?clock,? ?RP/7 o?clock, LL/3 o?clock .? There are no other masses noted.? Good sphincter tone. No rectal prolapse. The decision was made to band the[? RA, RP, LL internal hemorrhoid, and suction refractory furnace designer was used to perform band ligation without complication.? The patient tolerated the procedure well and there were no immediate complications. Follow up: The patient not require any further colonoscopies, unless they develop changes in bowel habits or other new gastrointestinal complaints. [place] Bowel Prep [place] Bowel Prep Right Colon: 2 Left Colon: 2 Transverse Colon: 2 Total Score: 6
--- NOTE | 2024-01-19 12:48 | W.PM.ENDDOP ---
Date of service: 01/20/24 Time of Service: 15:05 Endoscopy Report DATE OF PROCEDURE: 01/20/24 PRE-OP DIAGNOSIS: chronic reflux POST-OP DIAGNOSIS: same SURGEON: Judi Beard ANESTHESIA TYPE: General:No Airway ESTIMATED BLOOD LOSS: 2 PATHOLOGY: other COMPLICATIONS: None DISPOSITION: same day PREP: Miralax/Dulcolax PROCEDURE DESCRIPTION: Informed consent was obtained from the pt; explaining the benefits and Risks: bleeding, infections, perforations {which could require surgery or antibiotics and prolonged hospital stay}, or ostomy, and complications of anaesthesia, yaniv aspiration). The patient was take to the procedure room and placed in a supine position. Monitors were applied and a time out was done. The patients name, date of , procedure type, allergies to medications and metal in their body was reviewed. A bite block was placed and the patient was sedated. Once sedated and comfortable an Olympus gastroscope (see RN notes for scope #) was advanced through the oropharynx which was grossly normal, and passed into the esophagus. The proximal and mid-esophagus were normal. The distal esophagus does not show any: dilation/strictures/varices/erosions or ulcers/bleeding noted. There is minimal inflammation noted at GE. The scope was advanced into the stomach and through the pylorus into the proximal jejunum. The duodenum was noted to be normal. Biopsies were done of the duodenal bulb.. The scope was retracted back into the stomach and biopsies were taken of the antrum. There were no gastritis/gastropathy/ ulcers/masses noted. The scope was retroflexed. The cardia and fundus were noted to be normal. There small hiatal hernia noted. The scope was retracted back into the esophagus and biopsies were done of the GE junction (in all 4 quadrants) and distal esophagus (2cm above the GE junction) to rule out Matthew's. All specimens are retrieved and no bleeding was noted. The Z line was regular. The GE junction was at 38 cm.
[2024-01-20] VITALS (12 sets, daily range): BP systolic 104–132; BP diastolic 72–93; PULSE 66–89; RESP 16–26; TEMP 36.2–36.9; O2SAT 89–97; BMI 34.4
[2024-01-20] MEDS: Acetaminophen 500 MG TAB 1000 MG PO (09:54)
[2024-01-20] MEDS: Lactated Ringers 1,000 ML 80 ML IV (09:55)
--- NOTE | 2024-01-20 12:23 | W.ANESPRE ---
General Info Date of Service Date Performed: 01/20/24 Height: 5 ft 7 in Weight: 99.7 kg Body Mass Index (BMI): 34.4 Surgical Procedure: Operation Date: 01/20/24 11:25 Proposed Procedure Side Surgeon p Excision Lipoma Shoulder Right Judi Beard, DO s Colonoscopy/Gastroscopy Judi Beard, DO s Hemorrhoid Banding Judi Beard, DO Meds Allergies and Home Medications Allergies Allergy/AdvReac Type Severity Reaction Status Date / Time Iodinated Contrast Media Allergy Severe Anaphylaxis Verified 01/20/24 09:17 Sulfa (Sulfonamide Allergy Mild Rash Verified 01/20/24 09:17 Antibiotics) gabapentin AdvReac Intermediate Other (See Verified 01/20/24 09:24 Comment) oxycodone AdvReac Intermediate Nausea Verified 01/20/24 09:17 IV Contrast Allergy Anaphylaxis Uncoded 01/20/24 09:17 Home Medication ?Medication ?Instructions ?Recorded levothyroxine 100 mcg capsule 100 mcg PO DAILY #90 caps 06/18/23 omeprazole 40 mg capsule,delayed 40 mg PO DAILY #90 caps 06/18/23 release amlodipine 5 mg tablet 5 mg PO DAILY #90 tabs 07/14/23 ketoconazole 2 % shampoo 1 applic topical ONCE #120 mL 09/19/23 metoprolol tartrate 25 mg tablet 25 mg PO BID #180 tabs 09/19/23 cyclobenzaprine 10 mg tablet 10 mg PO TID PRN muscle spasm #90 10/17/23 tabs albuterol sulfate 90 mcg/actuation 2 puff inhalation QID PRN 10/22/23 aerosol inhaler shortness of breath or wheezing #8.5 grams clotrimazole 1 % topical cream 1 applic topical TID 7 days #30 12/25/23 grams diclofenac sodium 75 mg 75 mg PO BID 01/08/24 tablet,delayed release prochlorperazine maleate 5 mg 5 mg PO TID PRN nausea and 01/19/24 tablet (Compazine) vomiting #7 tabs Current Visit Medications: Current Medications Generic Name Dose Route Start Last Admin Trade Name Freq PRN Reason Stop Dose Admin Acetaminophen 1,000 mg 01/20/24 09:00 01/20/24 09:54 Acetaminophen 500 Mg Tab PO 01/20/24 18:00 1,000 mg PREOP JOSTIN Administration Gabapentin 600 mg 01/20/24 09:00 Gabapentin 300 Mg Cap PO 01/20/24 18:00 PREOP JOSTIN Hyoscyamine Sulfate 0.125 mg 01/20/24 00:40 Hyoscyamine 0.125 Mg Sl/Oral/Chew SL 02/19/24 00:39 DIRECTED PRN Ringer's Solution 1,000 mls @ 80 mls/hr 01/20/24 06:00 01/20/24 09:55 IV 02/19/24 23:59 80 mls/hr INFUSION JOSTIN Administration Cefazolin Sodium/Dextrose 2 gm in 50 mls @ 100 mls/hr 01/20/24 09:00 Ancef Duplex IVPB 01/20/24 18:00 PREOP JOSTIN IV Miscellaneous Supplies 1 each 01/20/24 06:00 Iv Access IV 02/19/24 23:59 DIRECTED JOSTIN Ondansetron HCl 4 mg 01/20/24 00:40 Ondansetron 4 Mg/2 Ml Vial IVP 02/19/24 00:39 Q4H PRN PRN Nausea / Vomiting Sodium Chloride 0 ml 01/20/24 06:00 Normal Saline Flush 10 Ml Syr IV 02/19/24 23:59 PRN PRN Sodium Chloride 0 ml 01/20/24 06:00 Normal Saline 10 Ml Vial IJ 02/19/24 23:59 DIRECTED PRN Sterile Water 0 ml 01/20/24 06:00 Water,Injection,Sterile 10 Ml Vial IJ 02/19/24 23:59 DIRECTED PRN PFSH Active Problems Active Problems: Problem Status Onset Code Family history of colon cancer in mother Acute Z80.0 Fungal dermatitis Acute B36.9 Chafing Acute L30.4 Bilateral knee pain Acute M25.561, M25.562 Shingles Acute B02.9 Pain Acute R52 Acquired skin tag Acute L91.8 Lipoma of abdominal wall Acute D17.1 Solar elastosis Acute L57.8 History of sun-damaged skin Acute Z87.2 Seborrheic keratoses Acute L82.1 Actinic keratoses Acute L57.0 Skin tags, multiple acquired Acute L91.8 Epidermal cyst Acute L72.0 Lipoma Acute D17.9 FUNMILAYO (obstructive sleep apnea) Chronic G47.33 Hypertensive disorder Chronic I10 Arthritis Acute M19.90 Tremor Acute R25.1 Sebaceous cyst Acute L72.3 Hematoma of left foot Acute S90.32XA Muscle spasm Acute M62.838 LLQ abdominal pain Acute R10.32 Gait instability Acute R26.81 Essential hypertension Acute I10 Hypothyroidism Chronic E03.9 GERD (gastroesophageal reflux disease) Chronic K21.9 Esophagitis, Marshall grade A Acute K20.80 Mild chronic gastritis Acute K29.50 Anxiety disorder Acute F41.9 Depression Chronic F32.A Osteoarthritis Chronic M19.90 Hemochromatosis Acute E83.119 Acute suppurative otitis media without spontaneous rupture of ear drum, bilateral Acute H66.003 Bilateral tympanic membrane perforation Acute H72.93 Acquired elongated uvula Acute K13.79 Scoliosis Acute M41.9 Back pain Acute M54.9 Chronic cough Acute R05.3 Mixed hearing loss, bilateral Acute H90.6 Lumbar degenerative disc disease Acute M51.36 Lumbar post-laminectomy syndrome Acute M96.1 Medical History Medical History Leg pain Numbness of right foot Low back pain History of depression Chronic GERD Medical History Comments:: Per pt.states 40 years ago he had anesthesia it didn't go well, but i dont remember why Surgical History Surgical History Hx of hand surgery H/O laminectomy History of back surgery (~05/23/92) H/O hernia repair (~04/22/13) H/O shoulder surgery (~02/06/16) Tobacco Smoking/Tobacco Use Status: Former Tobacco Use Smokeless tobacco user: chewing tobacco Passive smoking exposure: Yes Second hand exposure: Yes Alcohol Alcohol Intake: former Substance Use Substance use: Never Substance use type: does not use Vital Signs and Lab Results Vital Signs Most Recent Vital Signs in EMR: Most Recent Vital Signs Temp Pulse Resp BP Pulse Ox 36.9 C 80 20 119/87 97 01/20/24 09:17 01/20/24 09:17 01/20/24 09:17 01/20/24 09:17 01/20/24 09:17 Lab Results Blood Type / Crossmatch: No Data to Display Complete Blood Count: No Data to Display Complete Metabolic Panel: No Data to Display Liver Function Panel: No Data to Display Coagulation Panel: No Data to Display Cardiac Panel: No Data to Display Arterial Blood Gas: No Data to Display Venous Blood Gas: No Data to Display Pancreas Panel: No Data to Display Thyroid Panel: No Data to Display Infectious Disease: No Data to Display Blood Cultures: No Data to Display Toxicology Panel: No Data to Display Anesthesia Assessment and Plan Anesthesia History Personal History: Unknown Anesthesia History Family History: No Family History of Anesthesia Complications Exercise Tolerance Exercise Tolerance: Metabolic Equivalents>4 Pertinent Negatives Pertinent Negatives: No Symptoms of GERD Cardiac & Pulmonary Exam Cardiac Exam: Normal S1/S2 Heart Sounds Pulmonary Exam: Clear Bilateral Breath Sounds Implantable Cardiac Device Does patient have a Pacemaker or an ICD?: No Airway Exam Known Difficult Airway: No Mallampati Class: 2 Mouth Opening: Normal (> 3cm) Thyromental Distance: Greater than 3 cm Neck Range of Motion: Full ROM Neck Circumference: Normal Teeth Condition: Normal Dentition and Generalized Poor Dentition ASA Classification ASA Score: ASA 2 Emergency Case?: No NPO Status NPO Status: NPO Clears >2 hours, Solids >8 hours Anesthesia Plan Resuscitation Status: Full Code Anesthesia Technique: General Anesthesia Airway Planned: Endotracheal Tube Monitors Used: Standard Monitors
[2024-01-20] MEDS: ceFAZolin 2 GM/50 ML BAG IVPB (13:26)
[2024-01-20] MEDS: Lidocaine 1% Pres-Free 30 ML VIAL (13:50)
--- NOTE | 2024-01-20 14:00 | STOM_PTH ---
PATIENT: Jeremias Portillo LOC: [facility] U#:[id number] AGE/SX: 68/M ROOM: RE01/20/[address]: Judi Beard : 1955 BED: DIS: 01/20/2024 SPEC #: [id number] RECD: 01/20/24 18:31 STATUS: ZECHARIAH RECaren #: [id number] [place]: 01/20/24 14:[address]: Judi Beard DEPT: Surgical Specimen RECD BY: Chanel Crow ENTERED: 01/20/24 18:34 SP TYPE: STOMACH OTHR DR: Santana Cordova, ASSOCIATE BROKER Tissues: 1 - SOFT TISSUE MISC (INC. LIPOMA) 2 - BIOPSY BOWEL 3 - STOMACH BIOPSY 4 - STOMACH BIOPSY 5 - ESOPHAGUS BIOPSY 6 - ESOPHAGUS BIOPSY Procedures: GROSS AND MICRO LEVEL 4 GROSS AND MICRO LEVEL 3 Comments: [id number]
--- NOTE | 2024-01-20 14:03 | NUR.NOTE ---
1310: aware that gabapentin preop was held due to pt. reporting adverse rxn: disorientation, trouble walking, confusion Nursing Note:
--- NOTE | 2024-01-20 15:46 | W.ANESPOSTOP ---
Postoperative Evaluation Date, Time and Location Date Performed: 01/20/24 Time Performed: 15:46 Patient Location: Day Surgery Unit Vital Signs Most Recent Imported Vital Signs: Most Recent Vital Signs Temp Pulse Resp BP Pulse Ox 36.5 C 69 19 123/86 97 01/20/24 15:33 01/20/24 15:33 01/20/24 15:33 01/20/24 15:33 01/20/24 15:33 Pain Score Most Recent Pain Score: Most Recent Pain Score Pain Level 0 01/20/24 09:17 Assessment Mental Status: Awake (Alert & Oriented to Patient Baseline) Airway and Respiratory Function: Patent airway with normal (patient baseline) respiratory exam Cardiovascular Function: Hemodynamically Stable Hydration Status: Adequately Hydrated Nausea & Vomiting: No Nausea or Vomiting Pain: Pt. Denies Any Pain Peripheral Nerve Block: Patient did not receive a nerve block
--- NOTE | 2024-01-21 12:57 | W.PM.OP ---
Date of service: 01/20/24 Time of Service: 16:00 Operative Note Operative Note DATE OF PROCEDURE: 01/20/24 PRE-OP DIAGNOSIS: Lipoma left shoulder 3 x 3 inches POST-OP DIAGNOSIS: same SURGEON: Judi Beard ANESTHESIA TYPE: Local By Surgeon and General LMA/ETT Refer to Anesthesia Record ESTIMATED BLOOD LOSS: 3 PATHOLOGY: other COMPLICATIONS: None Patient was transported to: PACU Patient's condition: stable Procedure Description: Patient would like a large lipoma of the right shoulder removed. He has had it for some time. It is painful. It is soft and freely mobile and not fixed and well-circumscribed. Has the characteristics of a lipoma. The area is marked in preop. Patient brought to the operative suite. Anesthesia is administered per the department of anesthesia. Patient is prepped and draped in usual sterile fashion using a ChloraPrep scrub solution. Timeout was performed. Lesion is infiltrated with 30 cc of core percent Marcaine with epi. A inch and a half vertical midline incision over the lesion is made. Electrocautery is used to provide hemostasis. The lesion is then sharply dissected out. It is sent to pathology. The wound was irrigated. It is closed with 2 layers of subcutaneous 3-0 Vicryl and then skin 3-0 Prolene in interrupted fashion. Compression dressing is applied. Patient tolerated the procedure well without complication and the procedure was then turned to the EGD.
== END 2024-01-20 17:30 | disposition home or self-care (01) ==
LOC: SUR 08:34
PROVIDERS: PCP Nurse Practitioner Family; Visit Provider Surgery
PROC: (CPT 11406; principal; 2024-01-20 11:15)
PROC: (CPT 11406; 2024-01-20 11:15)
DX: Z12.11 Encounter for screening for malignant neoplasm of colon (principal); K20.80 Other esophagitis without bleeding; K29.50 Unspecified chronic gastritis without bleeding; D17.21 Benign lipomatous neoplasm of skin and subcutaneous tissue of right arm; K31.89 Other diseases of stomach and duodenum
CPT/HCPCS: 11406; 43239; 45398; 88305; 88304; J0690; J1100; J2001; J2371; J2405; J2704

== ENCOUNTER → 2024-01-22 10:15 | Outpatient (BNVA) | payer MEDICARE, BC, OTHER, SELFPAY | PROVIDERS: PCP Nurse Practitioner Family; Referring Provider Nurse Practitioner Family | DX: M17.12 Unilateral primary osteoarthritis, left knee (principal) | CPT/HCPCS: 20610; 99213; J1010 ==

== ENCOUNTER → 2024-02-03 12:54 | Outpatient (BNVA) | payer MEDICARE, OTHER, SELFPAY | PROVIDERS: PCP Nurse Practitioner Family; Referring Provider Nurse Practitioner Family; Visit Provider Surgery | DX: Z48.817 Encounter for surgical aftercare following surgery on the skin and subcutaneous tissue (principal); Z48.02 Encounter for removal of sutures ==

== ENCOUNTER 2024-04-12 22:05 | Outpatient (REF) | payer MEDICARE, OTHER, SELFPAY | END 2024-04-12 22:06 | disposition home or self-care (01) | LOC: LBN 22:05 | PROVIDERS: PCP Nurse Practitioner Family; Visit Provider Nurse Practitioner Family | DX: L98.9 Disorder of the skin and subcutaneous tissue, unspecified (principal); H93.90 Unspecified disorder of ear, unspecified ear | CPT/HCPCS: 87077; 87070; 87186; 87205 ==

== ENCOUNTER 2024-05-07 12:03 | Outpatient (CLI) | payer MEDICARE, OTHER, SELFPAY ==
[2024-05-07 09:59] LABS: Anion Gap 8.9 mmol/L (3-11); BUN 21 mg/dL (7-18); CO2 27.1 mmol/L (21.0-32.0); CREATININE 1.3 mg/dL (0.70-1.30); Calcium 9.2 mg/dL (8.5-10.1); Chloride 107 mmol/L (98-107); Estimated GFR 59.47 (mL/min/1.73m2); Glucose 101 mg/dL (74-106); Potassium 4.3 mmol/L (3.5-5.1); Sodium 143 mmol/L (136-145)
--- OUTSIDE RECORDS SUMMARY | 2024-05-07 12:05 | XMS_ITS | Continuity of Care Document ---
Author Organization [facility] Address [address] [place] [address] Care Team Providers Care Cloth Cutting Machine Operator Name Role Phone Santana Cordova Primary Care Physician [phone] Encounter [facility] Date(s): 08/06/22 - 08/06/[address] [address] Discharge Disposition: Home or Self Care Attending Physician: Erinn Botello MD Admitting Physician: Erinn Botello MD Referring Physician: Erinn Botello MD Allergies, Adverse Reactions, Alerts Substance Reaction Severity Status sulfa drugs Unknown Active Contrast Media Unknown Active Assessment and Plan Future Appointments Medications amLODIPine 5 mg oral tablet 5 mg = 1 tab, Oral, Daily, # 30 tab, 0 Refill(s) Start Date: 12/07/21 Status: Ordered levothyroxine 100 mcg (0.1 mg) oral capsule 100 mcg = 1 cap, Oral, Daily, # 30 cap, 0 Refill(s) Start Date: 12/07/21 Stop Date: 01/06/22 Status: Ordered montelukast 10 mg oral tablet 10 mg = 1 tab, Oral, Daily, # 30 tab, 0 Refill(s) Start Date: 12/07/21 Status: Ordered omeprazole 40 mg oral delayed release capsule 40 mg = 1 cap, Oral, Daily, # 30 cap, 0 Refill(s) Start Date: 12/07/21 Status: Ordered tamsulosin 0.4 mg oral capsule 0.4 mg = 1 cap, Oral, Daily, # 30 cap, 0 Refill(s) Start Date: 12/07/21 Status: Ordered Problem List Condition Confirmation Course Effective Dates Status H ealth Status Informant Hemochromatosis Confirmed Active Obstructive sleep apnea 1 Confirmed Active 1DME: Kris Results Laboratory List Name Date Automated Diff 08/06/22 CBC w/ Diff 08/06/22 Most recent to oldest [Reference Range]: 1 WBC [5.0-10.0 x10^3/mcL] 5.9 x10^3/mcL (08/06/22 12:46 PM) RBC [4.6-6.0 x10^6/mcL] 4.8 x10^6/mcL (08/06/22 12:46 PM) Neutro Auto [40.0-75.0 %] 54.5 % (08/06/22 12:46 PM) Lymph Auto [20.0-50.0 %] 28.5 % (08/06/22 12:46 PM) [place] Auto [2.0-15.0 %] 8.6 % (08/06/22 12:46 PM) Basophil Auto [0.0-1.0 %] 1.0 % (08/06/22 12:46 PM) MCV [80.0-96.0] 91.6 (08/06/22 12:46 PM) MCHC [31.0-35.0 g/dL] 34.2 g/dL (08/06/22 12:46 PM) Hct [41.0-51.0 %] 43.6 % (08/06/22 12:46 PM) MCH [26.0-32.0 pg] 31.3 pg (08/06/22 12:46 PM) Neutro Absolute 3.2 x10^3/mcL *NA* (08/06/22 12:46 PM) Hgb [14.0-18.0 g/dL] 14.9 g/dL (08/06/22 12:46 PM) Platelets [130-450 x10^3/mcL] 222 x10^3/ mcL (08/06/22 12:46 PM) RDW-CV [11.5-17.0 %] 12.5 % (08/06/22 12:46 PM) Imm Gran Auto [0.0-0.9 %] 0.3 % (08/06/22 12:46 PM) Eos, Auto [1.0-6.0 %] 7.1 % *HI* (08/06/22 12:46 PM) Social History Social History Type Response Tobacco Never tobacco user T obacco Use:. Sex Male Patient Care team information Care Team Personnel Name: Santana Cordova MAITRE D'-C Position: No Access Member Role: Primary Care Physician Address: Address: [address] [address]- [place] Name: Erinn Botello MD Position: PowerChart View Only Member Role: Informed Provider Address: Address: [address] [address] Care Team Related Persons Name: NORIS MORALES Address: Home
--- OUTSIDE RECORDS SUMMARY | 2024-05-07 12:05 | XMS_ITS | Continuity of Care Document ---
Author Organization [facility] Address [address] [place] [address] Care Team Providers Care Midwife [facility] Owner Name Role Phone Sanna Dent Primary Care Physician Encounter [facility] Date(s): 03/13/24 - 03/13/[address] [address] Encounter Diagnosis Skin infection(Discharge Diagnosis) - 03/13/24 Other hemorrhoids(Discharge Diagnosis) - 03/13/24 Internal hemorrhoid, bleeding(Discharge Diagnosis) - 03/13/24 Discharge Disposition: Home or Self Care Attending Physician: Outside, Provider Admitting Physician: Outside, Provider Allergies, Adverse Reactions, Alerts Substance Criticality Severity Reaction Reaction Severity Status sulfa drugs Unable to assess criticality Unknown Active Contrast Media Unable to assess criticality Unknown Active Assessment and Plan Extracted from: Title:ED Provider Note Author:Ke Kaplan MD Date:03/13/24 1.??Skin infection??L08.9 Ordered: Discharge Patient, 03/13/24 12:53:00 EDT, Home Independently, Constant Indicator ?? 2.??Internal hemorrhoid, bleeding??K64.8,??Other hemorrhoids??K64.8 Ordered: Discharge Patient, 03/13/24 12:53:00 EDT, Home Independently, Constant Indicator ?? Orders: mupirocin 2% topical ointment, 1 cesar, Topical, Ointment, BID for 30 days, First Dose: 03/13/24 12:50:00 EDT, Stop Date: 04/12/24 8:59:00 EST, Physician Stop, STAT Nursing Care, 03/13/24 12:50:00 EDT, Stop date 03/13/24 12:50:00 EDT, Wash affected area and chest with Hibiclens. Apply mupirocin and a dressing. Future Appointments Medications amLODIPine 5 mg oral [...] apnea 1 Confirmed Active 1DME: Kris Results Orders for Microbiology Reports Name Date Wound Culture 03/13/24 Microbiology Reports TEST:Wound Culture STATUS:Order in Progress BODY SITE:Chest SOURCE:Boil COLLECTED DATE/TIME:03/13/24 1:28 PM STAIN REPORT Few epithelial cells Rare Gram Positive Cocci Vital Signs Most recent to oldest [Reference Range]: 1 Temperature Temporal Artery [36-38 Deg C ] 36.8 Deg C (03/13/24 12:26 PM) Heart Rate Monitored [60-100 bpm] 73 bpm (03/13/24 12:26 PM) Respiratory Rate [12-24 br/min] 15 br/mi n (03/13/24 12:26 PM) Blood Pressure [90-120/60-80 mmHg] 127/7 8mmHg *HI* (03/13/24 12:26 PM) Mean Arterial Pressure, Cuff [65-140 mmH g] 94 mmHg (03/13/24 12:26 PM) Weight Estimated 97.98 kg (03/13/24 12:26 PM) Body Mass Index Estimated 33.9 kg/m2 (03/13/24 12:26 PM) Height/Length Estimated 170 cm (03/13/24 12:26 PM) Social History Social History Type Response Tobacco Never tobacco user T obacco Use:. Sex Male Sex Representation Male (finding) Physician Emergency department Note * Ke Kaplan MD: PERFORM Event Display: ED Note Physician Authored Date: [id number] VASHTI ZEPEDA :1955 Age:68 years Sex:Male Visit Date:03/13/2024 Primary Care Physician: Sanna Dent MD Basic Information Time Seen: Ke Kaplan MD / 03/13/2024 12:34 Chief Complaint pt states that he went to have a BM this morning and a lot of blood came out, pt did have hemorrhoids banded about two months ago. pt has been straining and some blood when wiping the last few days. History Of Present Illness: Any concern is rectal bleeding. ??Patient had hemorrhoidal banding 2 months ago.?? Has had increased??firmness of stool and straining significantly yesterday.?? He had a??bowel movement today??with significant blood in the surface of the stool. ?? Additional problem is infection on his right chest x 2-week. ??Unresponsive to treatment Review of Systems: Of systems is otherwise negative except for infection on chest Physical Exam Vitals & Measurements T:??36.8?C ??(Temporal Artery)?? HR:??73??(Monitored)?? RR:??15?? BP:??127/78?? SpO2:??98%?? HT:??170??cm?? WT:??97.98??kg??(Estimated)?? BMI:??33.9?? O2 Therapy:??Room air?? No distress. ??Rectal exam shows no??apparent hemorrhoids. ??No apparent fissures.?? Examining finger has no blood.?? On the right??upper chest near his nipple there is a??infected??papule??with??2 cm of circumferential erythema Medical Decision Making: Problem complexity is low. ??Data complexity is low. ??Management risk are low. ??[facility] coding 09155 Procedure No Qualifying Data Assessment/Plan 1.??Skin infection??L08.9 Ordered: Discharge Patient, 03/13/24 12:53:00 EDT, Home Independently, Constant Indicator ?? 2.??Internal hemorrhoid, bleeding??K64.8,??Other hemorrhoids??K64.8 Ordered: Discharge Patient, 03/13/24 12:53:00 EDT, Home Independently, Constant Indicator ?? Orders: mupirocin 2% topical ointment, 1 cesar, Topical, Ointment, BID for 30 days, First Dose: 03/13/24 12:50:00 EDT, Stop Date: 04/12/24 8:59:00 EST, Physician Stop, STAT Nursing Care, 03/13/24 12:50:00 EDT, Stop date 03/13/24 12:50:00 EDT, Wash affected area and chest with Hibiclens. Apply mupirocin and a dressing. Medication Reconciliation Unchanged amLODIPine (amLODIPine 5 mg oral tablet)1 tab Oral (given by mouth) every day. ?? levothyroxine (levothyroxine 100 mcg (0.1 mg) oral capsule)1 Capsules Oral (given by mouth) every day for 30 Days. ?? montelukast (montelukast 10 mg oral tablet)1 tab Oral (given by mouth) every day. ?? omeprazole (omeprazole 40 mg oral delayed release capsule)1 Capsules Oral (given by mouth) every day. ?? tamsulosin (tamsulosin 0.4 mg oral capsule)1 Capsules Oral (given by mouth) every day. Problem List/Past Medical History Ongoing Hemochromatosis Obstructive sleep apnea Historical No qualifying data Allergies Contrast Media sulfa drugs Social History Alcohol Electronic Cigarette/Vaping Electronic Cigarette Use: Never. Home/Environment Lives with Alone. Nutrition/Health Caffeine intake amount: 1-2 cups coffe week. Tobacco Never tobacco user Tobacco Use:. Family History Family history is negative Electronically Signed on 03/13/2024 12:55 EDT Ke Kaplan MD Emergency department Discharge instructions * Ke Kaplan MD: PERFORM Event Display: ED Discharge Information Authored Date: [id number] VASHTI ZEPEDA :1955 Age:68 years Sex:Male Visit Date:03/13/2024 Primary Care Physician: Sanna Dent MD Discharge Instructions We would like to thank you for allowing us to assist you with your healthcare needs. The following includes patient education materials and information regarding your injury/illness. Diagnosis from Today's Visit Skin infection Internal hemorrhoid, bleeding Other hemorrhoids Discharge Vitals Temperature??(Temporal Artery) 98.2 ??F (36.8 ??C) Heart Rate??(Monitored) 73 Respiratory Rate?? 15 Blood Pressure?? 127/78?? SpO2?? 98% Height?? 66.93 in (170 cm) Weight??(Estimated) 216.05 lb (97.98 kg) BMI?? 33.9 Allergies Contrast Media sulfa drugs What to Do Next Instructions from Your Care Team In addition to your MiraLAX take a stool softener??like Colace daily. ?? Use an antibacterial soap for showering, like Dial. ?? Change dressing on chest lesion??daily and apply mupirocin. ?? If failure to improve follow-up with your primary care provider??and check results of culture. ?? Ke Kaplan MD Upcoming Scheduled Appointments Friday 1:30 PM EST ?? Where: [facility] Treatment [address] [address] Status: Confirmed You were treated today on an emergency basis; it may be simms to contact your primary care provider to notify them of your visit today. You may have been referred to your regular doctor or a specialist, please follow up as instructed. If your condition worsens or you can't get in to see the doctor, contact the Emergency Department. Medications What How Much When Instructions Next Dose Unchanged amLODIPine (amLODIPine 5 mg oral tablet) 1 tab Oral (given by mouth) Every day Unchanged levothyroxine (levothyroxine 100 mcg (0.1 mg) oral capsule) 1 Capsules Oral (given by mouth) Every day Duration: 30 Days Unchanged montelukast (montelukast 10 mg oral tablet) 1 tab Oral (given by mouth) Every day Unchanged omeprazole (omeprazole 40 mg oral delayed release capsule) 1 Capsules Oral (given by mouth) Every day Unchanged tamsulosin (tamsulosin 0.4 mg oral capsule) 1 Capsules Oral (given by mouth) Every day Patient/Etl Bi Developer Signature Patient Name:VASHTI ZEPEDA I have received this information and my questions have been answered. Patient/Etl Bi Developer Name: Patient/Etl Bi Developer Signature: Relationship to Patient: Witness Name/Signature: Date: Electronically Signed on: 03/13/2024 12:55 EDTSigned by:[facility] Patient Care team information Care Team Personnel Name: Outside, Provider Position: No Access Member Role: Informed Provider Name: Sanna Dent MD Position: Physician Member Role: Primary Care Physician Address: [address] [place] [address] Care Team Related Persons Name: NORIS MORALES Insurance Providers Guarantor name: VASHTI ZEPEDA Health Plan Information #: 4 Payer: [facility] PPO Member Number: [id number] Policy Number: NA Health Plan Information #: 1 Payer: MEDICARE B NATIONAL 9+ SERVICES Member Number: [id number] Policy Number: Health Plan Information #: 2 [facility] Number: [id number] Policy Number: Health Plan Information #: 3 [facility] Member Number: [id number] Policy Number: Health Plan Information #: 5 Payer: [facility] Member Number: NA Policy Number: NA
--- OUTSIDE RECORDS SUMMARY | 2024-05-07 12:05 | XMS_ITS | Continuity of Care Document ---
Author Organization [facility] Address [address] [place] [address] Care Team Providers Care Golf Course Laborer Name Role Phone Santana Cordova Primary Care Physician [phone] Encounter [facility] Date(s): 02/04/23 - 02/04/[address] [address] Discharge Disposition: Home or Self Care Attending [...] sleep apnea 1 Confirmed Active 1DME: Kris Social History Social History Type Response Tobacco Never tobacco user T obacco Use:. Sex Male Patient Care team information Care Team Personnel Name: Santana Cordova BILLING ADMINISTRATOR-C Position: No Access Member Role: Primary Care Physician Address: Address: [address] [address]- [place] Name: Erinn Botello MD Position: PowerChart View Only Member Role: Informed Provider Address: Address: [id number] [place] [address] Care Team Related Persons Name: NORIS MORALES
--- OUTSIDE RECORDS SUMMARY | 2024-05-07 12:06 | XMS_ITS | Encounter Summary ---
Author Organization [facility] [address] Care Team Providers Care Licensed Clinician Name Role Phone Santana Cordova APRN Primary Care Provider [phone]- [phone] Encounter Details Date Type Department Care Team (Latest Contact Info) Description 04/11/2024 Travel Social History Tobacco Use Types Packs/Day Years Used Date Smoking Tobacco: Former Cigarettes 0.5 4 1 976 - 1979 Smokeless Tobacco: Former Chew Quit: 1979 Alcohol Use Standard Drinks/Week Comments Not Currently 0 (1 standard drink = 0.6 oz pur e alcohol) Sex and Gender Information Value Date Recorded Sex Assigned at Not on file Gender Identity Not on file Sexual Orientation Not on file documented as of this encounter Plan of Treatment Not on file documented as of this encounter Visit Diagnoses Not on filedocumented in this encounter Care Teams Licensed Clinician Relationship Specialty Start Date End Date Santana Cordova APRN [address] [place] [address] PCP - General Family Medicine 10/16/21 documented as of this encounter
--- OUTSIDE RECORDS SUMMARY | 2024-05-07 12:06 | XMS_ITS | Continuity of Care Document ---
Author Organization [facility] Address [address] [place] [address] Care Team Providers Care Csr Technician Name Role Phone Santana Cordova Primary Care Physician [phone] Encounter [facility]_[place] Date(s): 04/18/22 - 04/18/22 [facility] [address] [place] [address] Discharge Disposition: Home or Self Care Attending [...] List Condition Confirmation Course Effective Dates Status Health St atus Informant Hemochromatosis Confirmed Active Results Laboratory List Name Date CBC w/ Diff 04/18/22 Comprehensive Metabolic Panel 04/18/22 Ferritin 04/18/22 Iron Level and TIBC 04/18/22 Automated Diff 04/18/22 Most recent to oldest [Reference Range]: 1 WBC [5.0-10.0 x10^3/mcL] 6.0 x10^3/mcL (04/18/22 4:20 PM) RBC [4.6-6.0 x10^6/mcL] 4.6 x10^6/mcL (04/18/22 4:20 PM) Neutro Auto [40.0-75.0 %] 56.5 % (04/18/22 4:20 PM) Lymph Auto [20.0-50.0 %] 25.0 % (04/18/22 4:20 PM) Charlton Auto [2.0-15.0 %] 10.7 % (04/18/22 4:20 PM) Basophil Auto [0.0-1.0 %] 0.7 % (04/18/22 4:20 PM) BUN [7-18 mg/dL] 22 mg/dL *HI* (04/18/22 4:20 PM) Glucose Level [74-106 mg/dL] 102 mg/dL (04/18/22 4:20 PM) Potassium Level [3.5-5.1 mmol/L] 4.1 mmo l/L (04/18/22 4:20 PM) MCV [80.0-96.0] 91.4 (04/18/22 4:20 PM) AST [15-37 unit/L] 15 unit/L (04/18/22 4:20 PM) ALT [16-63 unit/L] 33 unit/L (04/18/22 4:20 PM) MCHC [31.0-35.0 g/dL] 34.8 g/dL (04/18/22 4:20 PM) Sodium Level [136-145 mmol/L] 139 mmol/L (04/18/22 4:20 PM) Hct [41.0-51.0 %] 42.3 % (04/18/22 4:20 PM) Calcium Level [8.5-10.1 mg/dL] 9.0 mg/dL (04/18/22 4:20 PM) Albumin Level [3.4-5.0 g/dL] 3.9 g/dL (04/18/22 4:20 PM) Protein Total [6.4-8.2 g/dL] 7.3 g/dL (04/18/22 4:20 PM) Iron Sat [20-55 %] 67 % *HI* (04/18/22 4:20 PM) MCH [26.0-32.0 pg] 31.7 pg (04/18/22 4:20 PM) Neutro Absolute 3.4 x10^3/mcL *NA* (04/18/22 4:20 PM) Bilirubin Total [0.2-1.0 mg/dL] 0.5 mg/d L (04/18/22 4:20 PM) Hgb [14.0-18.0 g/dL] 14.7 g/dL (04/18/22 4:20 PM) Alk Phos [46-146 unit/L] 92 unit/L (04/18/22 4:20 PM) Ferritin Level [26-388 ng/mL] 54 ng/mL (04/18/22 4:20 PM) Platelets [130-450 x10^3/mcL] 210 x10^3/ mcL (04/18/22 4:20 PM) CO2 [21-32 mmol/L] 25 mmol/L (04/18/22 4:20 PM) TIBC [250-450 mcg/dL] 264 mcg/dL (04/18/22 4:20 PM) Iron [65-175 mcg/dL] 177 mcg/dL *HI* (04/18/22 4:20 PM) eGFR Non-AA [>=60] 64 (04/18/22 4:20 PM) eGFR AA [>=60] 64 (04/18/22 4:20 PM) Chloride Level [98-107 mmol/L] 102 mmol/ L (04/18/22 4:20 PM) RDW-CV [11.5-17.0 %] 11.9 % (04/18/22 4:20 PM) Imm Gran Auto [0.0-0.9 %] 0.3 % (04/18/22 4:20 PM) Creatinine Level [0.70-1.30 mg/dL] 1.23 mg/dL (04/18/22 4:20 PM) Eos, Auto [1.0-6.0 %] 6.8 % *HI* (04/18/22 4:20 PM) Social History Social History Type Response Tobacco Never tobacco user T obacco Use:. Sex Male Patient Care team information Personnel Name: Santana Cordova Address: Address: [id number] [place] [address]
--- OUTSIDE RECORDS SUMMARY | 2024-05-07 12:06 | XMS_ITS | Encounter Summary ---
Author Organization [facility] [place] [address] Care Team Providers Care Instructional Technology Director Name Role Phone Santana Cordova CODEY Primary Care Provider +1- [phone] Encounter Details Date Type Department Care Team (Late st Contact Info) Description 04/25/2022 Telephone Gastroenterology at [facility] [place] [id number] Donavon Goodman Social History Tobacco Use Types Packs/Day Years Used Date Smoking Tobacco: Never Assessed Sex and Gender Information Value Date Recorded Sex Assigned at Not on file Gender Identity Not on file Sexual Orientation Not on file documented as of this encounter Miscellaneous Notes * Telephone Encounter - Donavon Goodman - 04/25/2022 11:37 AM EST Jeremias Portillo [id number] Diagnosis/Indication: Change in bowel habit, also due for screening, family hx CRC (Mother in 40s) Please review patient chart to confirm if previous Endoscopy procedure was performed within system. If yes, take note of Anesthesia type used. If previous procedure found, and with MAC/propofol Anesthesia support was used, schedule this procedure with Anesthesia and skip the Anesthesia portion of questions. If not performed within system, not performed at all, or performed with IVCS, ask Anesthesia questions. SCHEDULING QUESTIONS (ask all patient these questions) 1. Have you ever had a/an Colonoscopy before? Unknown If yes, did you have any problems with the procedure (such as waking up during the procedure, pain or difficulties afterwards, etc.)? No What type of sedation was used: None 2. Do you take any blood thinners or have you been diagnosed with a bleeding disorder that increases your risk of bleeding with procedures? No 3. Do you have a Pacemaker or Defibrillator device? If yes, send pool message to Cardiology with patient information and date or procedure. No 4. Are you a diabetic? If yes, call PCP/managing provider to discuss use of prep and any questions or concerns related to. No 5. Do you take any iron supplements or vitamins that contain iron? No 6. Do you have a preference regarding the gender of your provider? No ANESTHESIA QUESTIONS (YES to any question, please book with Anesthesia support) 7. Have you ever been diagnosed with Pulmonary Hypertension and/or Congential Heart Disease? No 8. Have you been diagnosed with A-Fib (atrial fibrillation) that is NOT being well controled with medications? No 9. Have you ever had an allergic or adverse reaction to Fentanyl or Versed? No 10. Have you had a problem with sedation or anesthesia? (Waking up during procedure, extreme confusion after, etc.) No 11. Do you have a diagnosis of Obstructive Sleep Apnea that requires the use of a c-pap machine? Yes 12. Do you use an oxygen tank at home? No 13. Do you use a rescue inhaler more than twice per day? (COPD, severe asthma) No 14. Do you experience breathing problems when you lay flat for a period of time? No 15. Do you take prescription narcotic pain medications, including suboxone or methodone? No SCHEDULING CONFIRMATIONS: Please note any and all parts of your conversation with the patient here. 16. We offer all new patients an opportunity to have an appointment with one of our associate care providers to learn more about your upcoming procedure, ask questions and get answers. These appointments are offered via telehealth. Would you be interested in scheduling this appointment? (Only ask if NEW referral patient; skip this question if [facility] provider ordered the procedure.) No 17. Is there any other information or concerns you would like to us to share with your care team inrelation to your upcoming scheduled procedure? No 18. You must have a responsible green party who will drive you to your procedure, stay on campus for the entire duration of your procedure, and drive you home from your procedure. Who will likely be your driver license agent for the procedure? *Please Verify the height and weight, and adjust if height and/or weight have changed* There is no height or weight on file to calculate BMI. *Delete if not needed* Height: 5'7 Weight: 208 BMI: 32.6 Age:66 y.o. documented in this encounter Plan of Treatment Not on file documented as of this encounter Visit Diagnoses Not on filedocumented in this encounter Care Teams Instructional Technology Director Relationship Specialty Start Date End Date Santana Cordova APRN [address] [place] [address] PCP - General Family Medicine 10/16/21 documented as of this encounter
--- OUTSIDE RECORDS SUMMARY | 2024-05-07 12:06 | XMS_ITS | Encounter Summary ---
Author Organization [facility] Address [address] [place] [address] Care Team Providers Care Topper Press Operator Automatic Name Role Phone Unknown, Provider Primary Care Provider Luis hood Encounter Details Date Type Department Care Team (Late st Contact Info) Description 10/21/2023 Lab Requisition [facility] Pathology & Laboratory Medicine - [facility] [address] [place] [address] Outr Resulting Lab, Provider Social History Tobacco Use Types Packs/Day Years Used Date Smoking Tobacco: Never Assessed Sex and Gender Information Value Date Recorded Sex Assigned at Not on file Legal Sex Male 10:31 EST Gender Identity Not on file Sexual Orientation Not on file documented as of this encounter Plan of Treatment Not on file documented as of this encounter Procedures Procedure Name Priority Date/Time Associated Diagnosis Comments PSA TOTAL, DIAGNOSTIC Routine 10/21/2023 8:13 EDT documented in this encounter Results * (ABNORMAL) PSA TOTAL, DIAGNOSTIC (10/21/2023 8:13 EDT) PSA 5.5(H) <=4.5 ng/mL 10/21/2023 20:23 EDT [facility] Blood VENOUS BLOOD / Unknown 10/21/2023 8:13 EDT 10/21/2023 17:11 EDT Narrative [facility] - 10/21/2023 20:23 EDT NOTE: Serum PSA concentration should not be interpreted as absolute evidence for the presence or absence of malignant disease. Assayed on Siemens ADVIA Centaur XPT using chemiluminescent technology.??Values obtained by using different assay methods cannot be used interchangeably. us Provider Outr Resulting Lab CHEMISTRY & BLOOD GA S ORDERABLES Final Result Performing Organization Address [facility]/State/ZIP Co de Phone Number [facility] [address] [place] [address] documented in this encounter Visit Diagnoses Not on filedocumented in this encounter Care Teams Topper Press Operator Automatic Relationship Specialty Start Date End Date Unknown, Provider, PCP - General 08/10/21 documented as of this encounter
--- OUTSIDE RECORDS SUMMARY | 2024-05-07 12:06 | XMS_ITS | Encounter Summary ---
Author Organization [facility] Address [facility] [place] [address] Care Team Providers Care Information Technology Project Manager Name Role Phone Santana Cordova STUDENT SUCCESS COUNSELOR Primary Care Provider +1- [phone] Encounter Details Date Type Department Care Team (Late st Contact Info) Description 12/27/2022 [place] [address] Lesley Sandoval Social History Tobacco Use Types Packs/Day Years [...] on filedocumented in this encounter Care Teams Information Technology Project Manager Relationship Specialty Start Date End Date Santana Cordova APRN [address] [place] [address] [address] [place] [address] PCP - General Family Medicine 10/16/21 documented as of this encounter
--- OUTSIDE RECORDS SUMMARY | 2024-05-07 12:06 | XMS_ITS | Encounter Summary ---
Author Organization [facility] Address [facility] [place] [address] Care Team Providers Care Religious Studies Professor Name Role Phone Santana Cordova APRN Primary Care Provider +1- [phone] Reason for Visit * Reason Comments Follow-up Things are alright h e guesses. He had to cancel his last appointment because he had an ear infection. Encounter Details Date Type Department Care Team (Late st Contact Info) Description 04/23/2024 4:00 PM EST Office [place] [address] Khanh Skelton III, MD [facility] [place] [address] Perforation of right tympanic membrane; Elongated uvula, acquired Social History Tobacco Use Types Packs/Day Years [...] on file documented as of this encounter Last Filed Vital Signs Vital Sign Reading Time Taken Comments Blood Pressure - - Pulse - - Temperature - - Respiratory Rate - - Oxygen Saturation - - Inhaled Oxygen Concentration - - Weight 102.1 kg (225 lb) 04/23/2024 4:10 PM EST Height 170.2 cm (5' 7) 04/23/2024 4:10 PM EST Body Mass Index 35.24 04/23/2024 4:10 PM EST documented in this encounter Progress Notes * Khanh Skelton III, MD - 04/23/2024 4:00 PM EST Images from the original note were not included. Otolaryngology Follow Up Note: Jeremias Portillo returns for haring loss. He has bilateral TM perforations, it is not clear when theseoccurred. He is hoping their repair will improve his hearing. He wears aids, but the right one is not working. He does note night time drainage of mucoid material from the right ear. Review of Systems: A complete review of constitutional, eyes, cardiovascular, respiratory, GI, , musculo-skeletal, skin, endocrine, psychiatric, hematologic, lymphatic and immunologic systems is completed and is as noted in the HPI. All other systems are otherwise negative. Examination shows the following: GENERAL: Well developed, well appearing, no acute distress. Vitals reviewed. HEAD/FACE/EYES: Normocephalic with no gross deformity. Extraocular movements intact. EARS: Normal exam of the external ear, ear canal, and middle ear bilaterally. NOSE: Normal external nasal exam. Septum midline. Turbinates are normal. SALIVARY: Parotid and submandibular glands are normal to inspection and palpation. ORAL CAVITY: Normal exam of oral tongue Normal mucosa without lesion Floor of mouth is soft. Dentition good repair OROPHARYNX: Normal tonsils. Normal soft palate and uvula. Posterior pharyngeal wall normal. LARYNX: Vocal cords normal. Vocal mobility normal. No mucosal lesions noted. NECK: No asymmetry on inspection No adenopathy. Normal thyroid. RESPIRATORY: Normal voice. No stridor. Normal respirations. CV: Normal carotid pulses. NEURO/PSYCH: Normal affect. Alert and oriented x 3. Responds appropriately to questions. CN II-XII grossly intact. PROCEDURES:AE: IMPRESSION: His audiogram was shown to Dr. Johnson who feels surgery might be helpful, and an appointment with Dr. Johnson will be arranged. In the mean time he remains interested in having a partial uvulectomy, and this too will be scheduled, in office if possible. documented in this encounter Plan of Treatment Not on file documented as of this encounter Visit Diagnoses Diagnosis Perforation of right tympanic membrane Perforation of tympanic membrane, unspecified Elongated uvula, acquired Other and unspecified diseases of the oral soft tissues documented in this encounter Care Teams Religious Studies Professor Relationship Specialty Start Date End Date Santana Cordova APRN [address] [facility] [address] [place] [address] PCP - General Family Medicine 10/16/21 documented as of this encounter
--- OUTSIDE RECORDS SUMMARY | 2024-05-07 12:06 | XMS_ITS | Encounter Summary ---
Author Organization [facility] Address [facility] [place] [address] Care Team Providers Care Spirits Model Name Role Phone Santana Cordova CODEY Primary Care Provider +1- [phone] Reason for Visit * Consultation (Routine) - Closed Specialty Diagnoses / Procedures Referred By Obed latif Referred To Contact Gastroenterology Diagnoses Abdominal pain, unspecified abdominal location abd pain Steph Cisse PA [address] [place] [address] [facility] [address] [place] [address] Referral ID Status Reason Start Date Expiration Date V isits Requested Visits Authorized [id number] Closed Consult, Test & Treat 12/03/2021 12/03/2022 1 1 Encounter Details Date Type Department Care Team (Late st Contact Info) Description 03/25/2022 1:00 PM EST Office Visit [place] [address] Christelle Ng MD [facility] [place] [address] Abdominal pain, unspecified abdominal location; Diarrhea, unspecified type Social History Tobacco Use Types Packs/Day Years Used Date Smoking Tobacco: Never Assessed Sex and Gender Information Value Date Recorded Sex Assigned at Not on file Gender Identity Not on file Sexual Orientation Not on file documented as of this encounter Progress Notes * Christelle Ng MD - 03/25/2022 1:00 PM EST [facility] Division of Gastroenterology and Hepatology Outpatient Consultation Reason for Visit: Abdominal pain Referred by Steph Cisse History of Present Illness: Jeremias Portillo is a 66 y.o. male with past medical history significant for hypothyroidism, hemochromatosis, GERD, HTN who is referred to GI for abdominal pain and change inbowel habits. He has had years of issues with alternating constipation and loose bowel movements. Within 20 minutes of eating certain meals will note sensation of developing diarrhea, abdominal discomfort, and will be on the toilet for hours. He reports that his symptoms have worsened however over the past year.He will sometimes go several days without a bowel movement but will also have days where he is having a bowel movement every 10-15 minutes that is watery. He endorses LLQ pain that is unchanged with bowel movements or eating. He endorses occasional nausea at the times when he is constipated but denies vomiting. He endorses occasional blood in his stool which he attributes to hemorrhoids. He has gained weight over the past year. Has had a CT 09/12/21 which showed mild diverticulosis at the junction of descending and sigmoid colon. No evidence of diverticulitis or other acute abnormality Last colonoscopy was several years agoand was normal. Labs 09/12/21 WBC 7.47, Hgb 14.4, Plt 215, Cr 1.0, TB 0.5, ALP 97, Na 139, AST 16, ALT 43, TSH 4.30 Of note, he has hemachromatosis for which he follows with a organ tuner electronic in [place], [place] and undergoes phlebotomy. His last colonoscopy was 4-5 years ago in [place]. He has had an upper endoscopy in the past aswell for GERD. He reports now being on daily PPI. He endorses a family history of CRC in his motherin her 40s. Review of Systems: Constitutional: No weight loss HEENT: No visual changes, URI symptoms Cardio: No chest pain/palpitations Resp: No cough, no SOB Hem/Lymph: no new lumps or bumps on body GI: see HPI : no dysuria Skin: no new rashes Musculoskeletal: no new joint pains Neuro: no new numbness, weakness in extremities All other systems negative except as above in HPI No past medical history on file. No past surgical history on file. Social History: He moved to [place], [place] last year from [place] to be closer to his grandchildren. Previously worked as a hospitality workers and now retired. Family History: family history is not on file. No current outpatient medications on file. No current facility-administered medications for this visit. Not on File Physical Examination: There were no vitals taken for this visit. General: Pleasant, cooperative, no acute distress HEENT: NC/AT, anicteric sclera, MMM Chest: Normal work of breathing CVS: Regular rate and rhythm, normal s1/s2, No murmurs, rubs or gallops ABD: soft, normoactive bowel sounds, non-tender, non-distended, no hepatosplenomegaly appreciated Extremities: Warm and well perfused. No edema Skin: No rash or lesion, no jaundice Neuro: Grossly intact, moves all extremities. No asterixis Labs: Reviewed in EDH/Scan Docs No results found for: WBC, HGB, HCT, MCV, PLATELET Chemistry No results found for: NA, K, CL, CO2, BUN, CREATININE No results found for: CALCIUM, ALKPHOS, AST, ALT, BILITOT Past Endoscopy: Prior scope reports unavailable, done in [place] Relevant Studies/Imaging: CT 09/12/21 which showed mild diverticulosis at the junction of descending and sigmoid colon. No evidence of diverticulitis or other acute abnormality IMPRESSION: Jeremias Portillo is a 66 y.o. male with past medical history significant for hypothyroidism, hemochromatosis, GERD, HTN who is referred to GI for abdominal pain and change in bowel habits. Overall his change in bowel pattern with alternating constipation and diarrhea is likely functional. He does not technically meet Lukasz criteria for IBS-M given that his abdominal pain does not appear to change with bowel movements. Given his age, hematochezia, and change in bowel habits would recommend colonoscopy. Additionally, given his family history of CRC with last scope being 4-5 years ago, he appears to be due for screening colonoscopy at this time as well. In the interim, recommended initiation of fiber with either Benefiber or Metamucil. RECOMMENDATIONS: - Initiate fiber - Colonoscopy - Follow up in 3-4 months This case was discussed with Dr. Jose Ng MD Fellow in Gastroenterology [place] [address] P: [phone] F: [phone] Santana Cordova APRN [address] [place] [address] * Ranjith Garcia MD - 03/25/2022 1:00 PM EST I discussed the patient with Dr. Ng and I agree with the assessment and plan as outlined. documented in this encounter Plan of Treatment Not on file documented as of this encounter Visit Diagnoses Diagnosis Abdominal pain, unspecified abdominal location Diarrhea, unspecified type documented in this encounter Care Teams Spirits Model Relationship Specialty Start Date End Date Santana Cordova APRN [address] [place] [address] PCP - General Family Medicine 10/16/21 documented as of this encounter
--- OUTSIDE RECORDS SUMMARY | 2024-05-07 12:06 | XMS_ITS | Encounter Summary ---
Author Organization [facility] Address [facility] [place] [address] Care Team Providers Care Line Worker Name Role Phone Santana Cordova CODEY Primary Care Provider +1- [phone] Reason for Visit * Consultation (Routine) - Authorized Specialty Diagnoses / Procedures Referred By Obed t Referred To Contact Otolaryngology Diagnoses Chronic cough PT W/ CHRONIC COUGH, NEGATIVE CHEST IMAGING, NEG PFT'S - HAS TRIALED INHALERS, LYRICA AND GABAPENTIN, NASL SPRAY W/O RELIEF FROM COUGH. REPORTS PERFORATED EAR DRUMS. ALSO A L LATERALLY DISPLACED UVULA. WOULD APPRECIATE ELIUD DEVLIN Sarah Allison, [place] [address] [place] [address] [place] [address] [facility] [address] [place] [id number] Referral ID Status Reason Start Date Expiration Date Visits Requested Visits Authorized [id number] Authorized Consult, Test & Treat PCP Updated and/or Approved 11/27/2023 11/26/2024 6 6 Encounter Details Date Type Department Care Team (Late st Contact Info) Description 01/28/2024 1:00 PM EDT Office [place] [address] Danielle Judd PA Chronic cough; Perforation of right tympanic membrane Social History Tobacco Use Types Packs/Day Years [...] - Inhaled Oxygen Concentration - - Weight 101.2 kg (223 lb) 01/28/2024 1:11 PM EDT Height 170.2 cm (5' 7) 01/28/2024 1:11 PM EDT Body Mass Index 34.93 01/28/2024 1:11 PM EDT documented in this encounter Progress Notes * Danielle Judd PA - 01/28/2024 1:[address] [facility] Otolaryngology New Patient Consultation Location of Visit: Otolaryngology Clinic, [facility] Patient ID: Jeremias Portillo ( ; 1955) Primary Care Provider: Santana Cordova APRN Referring Provider: Luly Crandall Reason for Visit: I was asked to see Jeremias Portillo at the request of Luly Crandall in consultation for chronic cough. History was obtained through review of the relevant records and patient interview. History of present illness: Jeremias Portillo is a 68 y.o. male with a past medical history of FUNMILAYO (not on CPAP), GERD (on [id number] QD, Tums QHS), HTN (on amlodipine), tachycardia (on metoprolol), and hypothyroidism (on synthroid). He is not taking blood thinners. The patient is being seen in clinic today for 3 year history of a progressively worsening cough. Hestates cough is productive with clear phlegm. Onset after an unknown viral illness. He states coughis triggered by hot and cold foods and mouth open breathing. He has not been able to tolerate dental exams for the past 3 years due to significant coughing when air hits his throat with his mouth open . He reports choking on food if he has a coughing fit during a meal. He denies denies dysphagia, odynophagia, hemoptysis, breathing difficulties, voice change or hoarseness, numbness, taste disturbance, swelling or lumps in neck, xerostomia, trismus, dental pain, weight loss, fevers, or night sweats. Denies symptomatic relief from benzonatate. He states he had upper endoscopy at [facility] on Friday. According to patient studies were normal apart from signs of chronicacid reflux. The patient reports a history of tobacco use (quit in 1979). He denies current alcohol use. There is no history of illicit drug use. Surgical history is significant for septoplasty in the 80s in [facility]. Patient reports no prior issues with anesthesia. There is no history of head and neck cancer. He worked as a .net programmer, now retired. 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 History of right TM perforation 35 years ago. He reports a 7-8 year history of vertigo triggered by ear cleanings. There is associated nausea and vomiting. Vertigo will last hours. He currently has bilaterally hearing aids, since 2005. He has been followed by [facility] hearing tests for many years. Last hearing test was a year and a half ago. She denies worseningor fluctuations in hearing. PROBLEM LIST There is no problem list on file for this patient. PAST MEDICAL HISTORY Past Medical History: Diagnosis Date Arthritis Hemochromatosis HTN (hypertension) Hypothyroidism Past Surgical History: Procedure Laterality Date LAMINECTOMY SHOULDER SURGERY Bilateral SOCIAL HISTORY Lives in [place] [id number] Social History Tobacco Use Smoking status: Former Current packs/day: 0.00 Average packs/day: 0.5 packs/day for 4.0 years (2.0 ttl pk-yrs) Types: Cigarettes Start date: 1975 Quit date: 1979 Years since quittin.7 Smokeless tobacco: Former Types: Chew Quit date: 1979 Substance Use Topics Alcohol use: Not Currently MEDICATIONS Current Outpatient Medications on File Prior to Visit Medication Sig Dispense Refill amLODIPine (Norvasc) 5 mg tablet Take 5 mg by mouth daily. benzonatate (Tessalon) 100 mg capsule TAKE ONE CAPSULE BY MOUTH TWICE A DAY NEEDED FOR COUGH diclofenac EC (Voltaren) [address] tablet Take 75 mg by mouth 2 times daily. levothyroxine (Synthroid) 100 mcg tablet Take 100 mcg by mouth daily. metoproloL tartrate (Lopressor) 25 mg tablet Take 25 mg by mouth 2 times daily. omeprazole (PriLOSEC) [address] capsule Take 40 mg by mouth daily. No current facility-administered medications on file prior to visit. ALLERGIES Allergies Allergen Reactions Gadolinium-Containing Contrast Media Sulfa (Sulfonamide Antibiotics) FAMILY HISTORY Family History Problem Relation Age of Onset Lung Cancer Mother ROS Pertinent positive findings discussed above in History of Present Illness. No other findings on review of constitutional, visual, cardiovascular, respiratory, gastrointestinal, genitourinary, musculoskeletal, dermatologic, neurological, psychiatric, endocrine, hematologic or immunologic systems. PHYSICAL EXAMINATION Vitals: There were no vitals taken for this visit. General: - No acute distress. - Breathing comfortably without stridor. Face: - Full and symmetric facial movement. - No dysmorphic facial features. Eyes: - Periocular structures and conjunctiva healthy without lesions. - Pupils are equal, round, and reactive to light. - Extraocular movements intact. - No evidence of nystagmus. Ears: - Auricles symmetric without lesions. See microscopic examination findings. Nose: - Patent anteriorly with adequate airflow, healthy pink mucosa. Mouth: - Lips and gingiva pink, moist, without lesions. - Dentition in poor repair. - Tongue and floor of mouth soft without lesions or masses. - Hard palate without lesions. Salivary: - Normal exam of the parotid glands. - Normal exam of the submandibular glands. Pharynx: - Soft palate without lesions. - Elongated uvula. Uvula is midline and non-edematous. - Oropharynx symmetric. Neck: - Soft, supple, without significant lymphadenopathy. - Thyroid gland without masses or asymmetry. - Trachea midline without deviation. Neurologic: - Cranial nerves II-XII intact and symmetric. - Responds appropriately to questions. Psychiatric: - Normal mood and affect. PROCEDURES Procedure: Binocular Microscopic Ear Examination Left ear: Auricle normal exam. External auditory canal normal exam. Tympanic membrane intact No perforation, retraction, or middle ear pathology noted. Right ear: Auricle normal exam. External auditory canal normal exam. Posterior Tympanic membrane perforation. No middle ear pathology noted. Procedure: Flexible Fiberoptic Laryngoscopy Indications: Flexible endoscopy performed because of chronic cough. Topical mixture of decongestantand anesthetic was applied to the nasal cavity. The scope was passed through the nasal cavity, through the nasopharynx, and into the oropharynx. The patient tolerated the procedure well without complication. Findings: Nasal Cavity: Near total septal perforation with normal appearing mucosa. Left inferior turbinate partially resected. No obstructions or lesions noted. Nasopharynx: No lesions or masses noted. Oropharynx: Base of tongue/vallecula symmetric with normal appearing lingual tonsillar tissue. No masses, ulcerations or mucosal lesions noted. Larynx: Epiglottis is thin and non-edematous. Arytenoids are symmetric. True cords demonstrate full and symmetric motion. Elongated uvula touches the epiglottis with tongue protrusion and phonation. Post cricoid edema Hypopharynx: Piriform sinuses are clear bilaterally, without evidence of masses or lesions. No significant pooling of secretions was noted. No overt laryngeal penetration or aspiration. REVIEW OF IMAGES/STUDIES None ASSESSMENT/RECOMMENDATIONS Jeremias Portillo is a 68 y.o. male with a past medical history of FUNMILAYO, GERD, HTN, hypothyroidism who presented for evaluation of chronic cough. - Examination revealed post cricoid edema which is consistent with reflux history. Recommended elevating head of bed and adding famotidine 40mg QHS to current PPI regimen. Elongated uvula could also be contributing to cough. RTC in 2 months for reassessment with Dr. Khanh Skelton. - Due to chronic otologic history, recommended audiogram with tympanometry. - Jeremias expressed understanding of these points and agreement with the plan. All questions that were asked were answered to the patient's satisfaction. Recommendations: - Add famotidine 40mg QHS to current PPI regimen - Audiogram with tympanometry. - In the interim the patient should call if his symptoms worsen or fail to improve or if he has anyquestions or concerns regarding treatment. I reviewed this case with Dr. Khanh Skelton and he agreed with the above assessment and plan. I appreciate the opportunity to be involved in Mr. Portillo's care. Danielle Judd PA-C Division of Otolaryngology-[place] [address] 01/28/24 1:09 PM documented in this encounter Plan of Treatment Not on file documented as of this encounter Visit Diagnoses Diagnosis Chronic cough Cough Perforation of right tympanic membrane Perforation of tympanic membrane, unspecified documented in this encounter Care Teams Line Worker Relationship Specialty Start Date End Date Santana Cordova, DIRECTOR OF CODING [address] [facility] [address] [place] [address] PCP - General Family Medicine 10/16/21 documented as of this encounter
--- OUTSIDE RECORDS SUMMARY | 2024-05-07 12:06 | XMS_ITS | Encounter Summary ---
[place] [address] Care Team Providers Care Acetylene Burner Name Role Phone ArtSantana CODEY Primary Care Provider +1- [phone] Reason for Referral * Diagnostic Test (Routine) - Closed Specialty Diagnoses / Procedures Referred By Obed latif Referred To Contact Radiology Diagnoses Hemochromatosis, unspecified hemochromatosis type Procedures MRI Abdomen wo Contrast MRI Liver wwo Contrast Erinn Botello MD [address] [place] [address] [place] [address] Referral ID Status Reason Start Date Expiration Date V isits Requested Visits Authorized [id number] Closed Specialty Service Requested 03/30/2024 09/27/2025 1 1 Reason for Visit * Diagnostic Test (Routine) - Closed Specialty Diagnoses / Procedures Referred By Obed latif Referred To Contact Radiology Diagnoses Hemochromatosis, unspecified hemochromatosis type Procedures MRI Abdomen wo Contrast MRI Liver wwo Contrast Erinn Botello MD [address] [place] [address] [place] [address] Referral ID Status Reason Start Date Expiration Date V isits Requested Visits Authorized [id number] Closed Specialty Service Requested 03/30/2024 09/27/2025 1 1 Encounter Details Date Type Department Care Team (Latest Contact Info) Description 04/11/2024 12:36 PM EST - 04/11/2024 11:59 PM EST Hospital Encounter MRI at [facility] [place] [address] Erinn Botello MD [address] [place] [address] Hemochromatosis, unspecified hemochromatosis type Discharge Disposition: Home Social History Tobacco Use Types Packs/Day Years [...] on file documented as of this encounter Medications at Time of Discharge Medication Sig Dispensed Refills Start Date End Date famotidine (Pepcid) 40 mg tablet Take 1 tablet by mouth nightly. 30 tablet 2 01/28/2024 amLODIPine (Norvasc) 5 mg tablet Take 5 mg by mouth daily. benzonatate (Tessalon) 100 mg capsule TAKE ONE CAPSULE BY MOUTH TWICE A DAY NEEDED FOR COUGH 07/16/2022 diclofenac EC (Voltaren) [address] tablet Take 75 mg by mouth 2 times daily. 09/27/2022 levothyroxine (Synthroid) 100 mcg tablet Take 100 mcg by mouth daily. 09/27/2022 metoproloL tartrate (Lopressor) 25 mg tablet Take 25 mg by mouth 2 times daily. 09/27/2022 omeprazole (PriLOSEC) [address] capsule Take 40 mg by mouth daily. documented as of this encounter Plan of Treatment Not on file documented as of this encounter Procedures Procedure Name Priority Date/Time Associated Diagnosis Comments MRI ABDOMEN WO CONTRAST Routine 04/11/2024 1:33 PM EST Hemochromatosis, unspecified hemochromatosis type documented in this encounter Results * MRI Abdomen wo Contrast (04/11/2024 1:33 PM EST) WORKSTATION ID [id number] [facility] Anatomical Region Laterality Modality Abdomen Magnetic Resonan ce Impressions 04/12/2024 11:38 AM EST 1. Liver iron concentration within normal limits (range: 1.4 and 2.2 mg of iron per gram of dry liver) 2. Hepatic steatosis. I have personally reviewed the image(s) and the resident's interpretation and agree with the findings, Broderick Villagomez at 04/12/2024 11:38 AM Thank you for letting us participate in the care of this patient. ??If you are a health care provider and have any questions regarding this report, please contact the number below. ??For patients who have questions please contact the health physician primary care sports medicine that requested your imaging first. ? Electronically signed by: Broderick Villagomez [facility] ([phone]), at 04/12/2024 11:38 AM Narrative 04/12/2024 11:38 AM EST EXAMINATION: MRI ABDOMEN WO CONTRAST CLINICAL HISTORY: hemochromatosis E83.119, Hemochromatosis, unspecified TECHNIQUE: MRI of the abdomen was performed without contrast on a 1.5 T magnet. Limited axial multi-echo iron quantification sequences were obtained through the liver and spleen. Axial and coronal T2 sequences of the entire liver also acquired. Liver Iron Concentration was calculated on an independent workstation (report viewable in PACS). COMPARISON: CT abdomen and pelvis without contrast, 09/12/2021 FINDINGS: Liver: Normal contour. No focal lesions on the T2 weighted images. Diffuse signal loss identified on opposed phase images, suggesting steatosis. NEELIMA 1: 2.2 mg Fe/g NEELIMA 2: 1.7 mg Fe/g NEELIMA 3: 1.6 mg Fe/g NEELIMA 4: 1.4 mg Fe/g Results: Liver iron concentration is within normal limits. (Normal values: <3 mg Fe/g dry weight, or approximately <53 micromol/g dry weight) Bile ducts: Nondilated. Gallbladder: No stones. Normal caliber wall. Pancreas: Normal T2 signal intensity. No ductal dilatation. Spleen: Normal in size and signal intensity. Adrenal glands: Normal. Kidneys: T2 hyperintense, T1 hypointense left interpolar mass measuring 2 cm containing a few thin septations, probably a minimally complex cyst. No hydronephrosis. Bowel: No dilated small or large intestine in the upper abdomen. Lymph Nodes: No enlarged nodes. Peritoneum and mesentery: No ascites or focal fluid collection. Osseous structures: Mild degenerative change in the lumbar spine. Procedure Note Broderick Villagomez MD - 04/12/2024 EXAMINATION: MRI ABDOMEN WO CONTRAST CLINICAL HISTORY: hemochromatosis E83.119, Hemochromatosis, unspecified TECHNIQUE: MRI of the abdomen was performed without contrast on a 1.5 Tmagnet. Limited axial multi-echo iron quantification sequences were obtainedthrough the liver and spleen. Axial and coronal T2 sequences of the entire liveralso acquired. Liver Iron Concentration was calculated on an independentworkstation (report viewable in PACS). COMPARISON: CT abdomen and pelvis without contrast, 09/12/2021 FINDINGS: Liver: Normal contour. No focal lesions on the T2 weighted images.Diffuse signal loss identified on opposed phase images, suggesting steatosis. NEELIMA 1: 2.2 mg Fe/g NEELIMA 2: 1.7 mg Fe/g NEELIMA 3: 1.6 mg Fe/g NEELIMA 4: 1.4 mg Fe/g Results: Liver iron concentration is within normal limits. (Normal values: <3 mg Fe/g dry weight, or approximately <53 micromol/gdry weight) Bile ducts: Nondilated. Gallbladder: No stones. Normal caliber wall. Pancreas: Normal T2 signal intensity. No ductal dilatation. Spleen: Normal in size and signal intensity. Adrenal glands: Normal. Kidneys: T2 hyperintense, T1 hypointense left interpolar mass measuring 2cm containing a few thin septations, probably a minimally complex cyst. No hydronephrosis. Bowel: No dilated small or large intestine in the upper abdomen. Lymph Nodes: No enlarged nodes. Peritoneum and mesentery: No ascites or focal fluid collection. Osseous structures: Mild degenerative change in the lumbar spine. IMPRESSION 1. Liver iron concentration within normal limits (range: 1.4 and 2.2 mg ofiron per gram of dry liver) 2. Hepatic steatosis. I have personally reviewed the image(s) and the resident's interpretationand agree with the findings, Broderick Villagomez at 04/12/2024 11:38 AM Thank you for letting us participate in the care of this patient. If youare a health care provider and have any questions regarding this report,please contact the number below. For patients who have questions please contactthe health physician primary care sports medicine that requested your imaging first. Electronically signed by: Broderick Villagomez [facility]([phone]), at 04/12/2024 11:38 AM Erinn Botello MD IMG MRI ORDERABLES documented in this encounter Visit Diagnoses Diagnosis Hemochromatosis, unspecified hemochromatosis type documented in this encounter Care Teams Acetylene Burner Relationship Specialty Start Date End Date Santana Cordova APRN [address] [place] [address] PCP - General Family Medicine 10/16/21 documented as of this encounter
--- OUTSIDE RECORDS SUMMARY | 2024-05-07 12:06 | XMS_ITS | Encounter Summary ---
Author Organization [facility] Address [facility] [place] [address] Care Team Providers Care Wolf Hunter Name Role Phone Santana Cordova APRN Primary Care Provider +1- [phone] Encounter Details Date Type Department Care Team (Late st Contact Info) Description 02/27/2022 Ancillary Procedure Radiology Library at [facility] [place] [address] Santana Cordova APRN [address] [place], [place] [address] Social History Tobacco Use Types Packs/Day Years Used Date Smoking Tobacco: Never Assessed Sex and Gender Information Value Date Recorded Sex Assigned at Not on file Gender Identity Not on file Sexual Orientation Not on file documented as of this encounter Plan of Treatment Not on file documented as of this encounter Procedures Procedure Name Priority Date/Time Associated Diagnosis Comments FILM LIBRARY STORAGE ONLY MR SPINE Routine 02/27/2022 12:00 AM EDT documented in this encounter Results * Film Library- Storage Only MR Spine (02/27/2022 12:00 AM EDT) Narrative [facility] - 02/28/2022 6:50 AM EDT This exam is auto-finalizing. It's purpose is for storage only. Santana Cordova APRN IMG FILM LIBRARY O RDERABLES [place], [place] documented in this encounter Visit Diagnoses Not on filedocumented in this encounter Care Teams Wolf Hunter Relationship Specialty Start Date End Date Santana Cordova APRN [address] [place] [address] PCP - General Family Medicine 10/16/21 documented as of this encounter
--- OUTSIDE RECORDS SUMMARY | 2024-05-07 12:06 | XMS_ITS | Encounter Summary ---
Author Organization [facility] [address] Care Team Providers Care Clinical Assistant Name Role Phone Santana Cordova APRN Primary Care Provider +1- [phone] Encounter Details Date Type Department Care Team (Latest Contact Info) Description 12/17/2022 Travel Social History Tobacco Use Types Packs/Day [...] on filedocumented in this encounter Care Teams Clinical Assistant Relationship Specialty Start Date End Date Santana Cordova APRN [address] [place] [address] PCP - General Family Medicine 10/16/21 documented as of this encounter
--- OUTSIDE RECORDS SUMMARY | 2024-05-07 12:06 | XMS_ITS | Encounter Summary ---
Author Organization [facility] Address [facility] [place] [address] Care Team Providers Care Facilities Maintenance Assistant Name Role Phone ArtSantana CODEY Primary Care Provider +1- [phone] Reason for Visit * Consultation (Routine) - Closed Specialty Diagnoses / Procedures Referred By Obed t Referred To Contact Pulmonology Diagnoses Cough, unspecified Hereditary hemochromatosis Acute upper respiratory infection, unspecified Erinn Botello MD [address] [place] [address] [facility] [place] [facility] [address] [place] [id number] Referral ID Status Reason Start Date Expiration Date Visits Re quested Visits Authorized [id number] Closed 10/04/2022 10/04/2023 1 1 Encounter Details Date Type Department Care Team (Late st Contact Info) Description 12/17/2022 3:00 PM EDT [place] [address] Joo Spain MD [facility] [place] [address] Chronic cough Social History Tobacco Use Types Packs/Day Years [...] Sign Reading Time Taken Comments Blood Pressure 113/82 12/17/2022 3:00 PM EDT Pulse 88 12/17/2022 3:00 PM EDT Temperature 35.8 ??C (96.4 ??F) 12/17/2022 3 :00 PM EDT Respiratory Rate 16 12/17/2022 3:00 PM EDT Oxygen Saturation 98% 12/17/2022 3:0 0 PM EDT Inhaled Oxygen Concentration - - Weight 98.1 kg (216 lb 3.2 oz) 12/17/2022 3:00 PM EDT Height 170.2 cm (5' 7) 12/17/2022 3:00 PM EDT patient reported Body Mass Index 33.86 12/17/2022 3:00 PM EDT documented in this encounter Patient Instructions * Patient Instructions* Joo Spian MD - 12/17/2022 3:00 PM EDT How to use the Buteyko stop cough technique At the first sign of a tickle or urge to cough: 1. Put your hand over your mouth and swallow (keep your hand over your mouth throughout). 2. Take a small breath in and out, pinch your nose if you can. 3. Hold your breath for 5-10 counts. 4. Leave your hand over your mouth (and release nose if you are pinching it). 5. Breathe small, careful breaths through the nose for 30 seconds (all the time resisting the urge to cough). 6. Take a slow steady breath in and out of your nose. 7. Repeat the practice twice more or until the tickle has subsided Here is a link to a video on Leixir[employer] Illustrating the method https://youtu.be/[email or web address] documented in this encounter Progress Notes * Joo Spain MD - 12/17/2022 3:00 PM EDT Images from the original note were not included. [facility] Section of Pulmonary and Critical Care Medicine Outpatient Consultation Jeremias Portillo is a 67 y.o. male who presents for evaluation of a cough. HPI: Patient has no history of prior lung disease. He had a URI about 3 years ago and developed a cough that has persisted. It has gotten somewhat better for the last few weeks. It is worse when he eats or drinks (related to inhalation, not difficulty swallowing). It does not currently wake him from sleep but it had previously. He denies any wheezing or SOB. He has been on PPI therapy (started prior to cough) and his GERD symptoms are well controlled. He complains of post- nasal drip and did not haveany benefit with nasal sprays. He had previously been tried on inhalers and singulair without benefit. He was seen by ENT as well. He had an unclear reaction to Lyrica previoulsy. Past Medical History: Diagnosis Date Arthritis Hemochromatosis HTN (hypertension) Hypothyroidism Past Surgical History: Procedure Laterality Date LAMINECTOMY SHOULDER SURGERY Bilateral Family History Problem Relation Age of Onset Lung Cancer Mother Social History Tobacco Use Smoking status: Former Packs/day: 0.50 Years: 4.00 Pack years: 2.00 Types: Cigarettes Quit date: 1979 Years since quittin.6 Smokeless tobacco: Former Types: Chew Quit date: 1979 Vaping Use Vaping Use: Never used Substance Use Topics Alcohol use: Not Currently Social History Social History Narrative Prior welder gas Current Outpatient Medications: amLODIPine (Norvasc) 5 mg tablet, Take 5 mg by mouth daily., Disp: , Rfl: benzonatate (Tessalon) 100 mg capsule, TAKE ONE CAPSULE BY MOUTH TWICE A DAY NEEDED FOR COUGH, Disp: , Rfl: diclofenac EC (Voltaren) [address] tablet, Take 75 mg by mouth 2 times daily., Disp: , Rfl: levothyroxine (Synthroid) 100 mcg tablet, Take 100 mcg by mouth daily., Disp: , Rfl: metoproloL tartrate (Lopressor) 25 mg tablet, Take 25 mg by mouth 2 times daily., Disp: , Rfl: omeprazole (PriLOSEC) [address] capsule, Take 40 mg by mouth daily., Disp: , Rfl: Gadolinium-containing contrast media and Sulfa (sulfonamide antibiotics) Review of Systems Constitutional: Negative. HENT: Negative. Respiratory: Positive for cough. Negative for shortness of breath and wheezing. Cardiovascular: Negative. Gastrointestinal: Positive for nausea and vomiting. Negative for heartburn. Neurological: Negative. Endo/Heme/Allergies: Negative. BP 113/82 (BP Location (NBP): Left arm, Patient Position: Sitting, BP Cuff Sizes: Large Adult (32-43 cm)) Pulse 88 Temp 35.8 ??C (96.4 ??F) (Temporal) Resp 16 Ht 170.2 cm (5' 7) Comment: patient reported Wt 98.1 kg (216 lb 3.2 oz) SpO2 98% BMI 33.86 kg/m?? Vital signs reviewed General: Alert and oriented, in no apparent distress Head: Normocephalic, without obvious abnormality, atraumatic Eyes: Conjunctiva clear Nose: Nares normal, mucosa normal Throat: Lips, mucosa and tongue normal Neck: Supple, trachea midline, no adenopathy Lungs: Clear to auscultation bilaterally, respirations unlabored Heart: Regular rate and rhythm, S1 and S2 normal, no murmur, rub or gallop Abdomen: Soft, non-tender, non-distended Extremities: no clubbing, cyanosis or edema Skin: no rashes or ulcers Neurologic: no focal deficits Labs & Studies: PFTs (1st column %, 2nd column z-scores): 09/23/22 FVC 101 FEV1 117 FEV1/FVC 85 FACILITIES OPERATIONS TECHNICIAN TLC 91 RV 71 DLCO 82 DLCO/VA 91 6MWT (ft) Low sat O2 req. pH pCO2 pO2 CXR 12/17/22: Independently reviewed by me Bilateral shoulder arthroplasty hardware is visualized. Low lung volumes accentuate the pulmonary lung markings. No airspace opacifications. No pleural effusions. No pneumothorax. Mild levoscoliosis of the thoracolumbar junction. No acute osseous findings. Assessment & Plan: Cough: PFTs and chest imaging are normal. He has been treated with inhalers and for GERD. He has seen ENT and another gun stocker when he lived in [place]. I suspect a chronic idiopathic cough. I would like to check a chest CT to confirm there is no other explanation for his cough. If this is unremarkable I would recommend either gabapentin or lyrica. He reports having an abnormal reaction to lyrica(he experienced transient stroke like symptoms). While there is a risk this could happen with gabapentin, he is reasonable to try gabapentin if chest CT is unremarkable. I will contact him to discussresults once I am able to review his chest CT. A total of 45 minutes was spent performing this encounter on this date of service. My evaluation ofthis patient, including a review of the chart, history, laboratory, and imaging finding, discussionwith patient, placing orders and documenting the plan as detailed above. Follow-up instructions: Return in about 3 months (around 03/19/2023) for In Person. Orders Placed This Encounter Procedures CT Chest wo Contrast (Generic) documented in this encounter Plan of Treatment Not on file documented as of this encounter Visit Diagnoses Diagnosis Chronic cough Cough documented in this encounter Care Teams Facilities Maintenance Assistant Relationship Specialty Start Date End Date Santana Cordova, CORK GRINDER [address] [place] [address] PCP - General Family Medicine 10/16/21 documented as of this encounter
--- OUTSIDE RECORDS SUMMARY | 2024-05-07 12:06 | XMS_ITS | Encounter Summary ---
Author Organization [facility] Address [facility] [place] [address] Care Team Providers Care Die Presser Name Role Phone Santana Cordova CODEY Primary Care Provider +1- [phone] Reason for Referral * Consultation (Routine) - Closed Specialty Diagnoses / Procedures Referred By Obed latif Referred To Contact Otolaryngology Diagnoses Mixed conductive and sensorineural hearing loss, bilateral Bilateral tympanic membrane perforation Acute suppurative otitis media of both ears without spontaneous rupture of tympanic membranes, recurrence not specified Norman Richard MD [address] [place] [address] [place] [address] Tucker Hernandez MD [facility] [address] Referral ID Status Reason Start Date Expiration Date V isits Requested Visits Authorized [id number] Closed Consult, Test & Treat 05/24/2022 05/24/2023 1 1 Encounter Details Date Type Department Care Team (Latest Contact Info) Description 05/24/2022 Transcribe Orders eDH Incoming Referrals [phone] Norman Richard MD [address] [place] [address] [address] [place], [place] [id number] Mixed conductive and sensorineural hearing loss, bilateral; Bilateral tympanic membrane perforation; Acute suppurative otitis media of both ears without spontaneous rupture of tympanic membranes, recurrence not specified Social History Tobacco Use Types Packs/Day Years Used Date Smoking Tobacco: Never Assessed Sex and Gender Information Value Date Recorded Sex Assigned at Not on file Gender Identity Not on file Sexual Orientation Not on file documented as of this encounter Plan of Treatment Scheduled Referrals Name Type Priority Associated Diagnoses Orde r Schedule Referral to ENT Outpatient Referral Routine Mixed conductive and sensorineural hearing loss, bilateral Bilateral tympanic membrane perforation Acute suppurative otitis media of both ears without spontaneous rupture of tympanic membranes, recurrence not specified Ordered: 05/24/2022 documented as of this encounter Visit Diagnoses Diagnosis Mixed conductive and sensorineural hearing loss, bilateral Mixed hearing loss, bilateral Bilateral tympanic membrane perforation Perforation of tympanic membrane, unspecified Acute suppurative otitis media of both ears without spontaneous rupture of tympanic membranes, recurrence not specified documented in this encounter Care Teams Die Presser Relationship Specialty Start Date End Date Santana Cordova, COOKER PIE FILLING [address] [place] [address] PCP - General Family Medicine 10/16/21 documented as of this encounter
--- OUTSIDE RECORDS SUMMARY | 2024-05-07 12:06 | XMS_ITS | Encounter Summary ---
Author Organization [facility] [place] [address] Care Team Providers Care Assistant Plant Controller Name Role Phone Santana Cordova APRN Primary Care Provider +1- [phone] Encounter Details Date Type Department Care Team (Latest Contact Info) Description 04/23/2024 3:00 PM EST Office Visit Audiology at [address] [address] Dalia Kelly AUD [facility] [place] [address] Mixed conductive and sensorineural hearing loss, bilateral Social History Tobacco Use Types Packs/Day Years [...] as of this encounter Progress Notes * Dalia Kelly AUD - 04/23/2024 3:00 PM EST AUDIOLOGY [place], [place] Name: Jeremias Portillo Age: 68 y.o. Patient was seen for an audiologic evaluation in conjunction with Khanh Skelton MD in Otolaryngology. Please refer to the audiogram (under 'Procedures' tab) for background/history, results, impressions, and recommendations. Today's findings and recommendations were reviewed with the patient at the time of the visit. Dieudonne Cunha, [facility] [place] [address] (v) [phone] / (f) [phone] documented in this encounter Plan of Treatment Not on file documented as of this encounter Procedures Procedure Name Priority Date/Time Associated Diagnosis Comments COMPREHENSIVE HEARING TEST Routine 04/23/2024 2:24 PM EST documented in this encounter Results * Comprehensive hearing test (04/23/2024 2:24 PM EST) 04/23/2024 2:24 PM EST Narrative [facility] - 04/23/2024 2:24 PM EST - Follow-up with Dr. Skelton in Otolaryngology as scheduled. Procedure Note Unknown - 04/23/2024 - Follow-up with Dr. Skelton in Otolaryngology as scheduled. Dalia [facility] documented in this encounter Visit Diagnoses Diagnosis Mixed conductive and sensorineural hearing loss, bilateral Mixed hearing loss, bilateral documented in this encounter Care Teams Assistant Plant Controller Relationship Specialty Start Date End Date Santana Cordova APRN [address] [place] [address] PCP - General Family Medicine 10/16/21 documented as of this encounter
--- OUTSIDE RECORDS SUMMARY | 2024-05-07 12:06 | XMS_ITS | Continuity of Care Document ---
Author Organization [facility] Address [address] [place] [address] Care Team Providers Care Family And Consumer Education Teacher Name Role Phone Santana Cordova Primary Care Physician [phone] Encounter [facility] Date(s): 11/05/22 - 11/05/[address] [address] Discharge Disposition: Home or Self Care Attending [...] Obstructive sleep apnea 1 Confirmed Active 1DME: [place] Results Laboratory List Name Date Comprehensive Metabolic Panel 11/05/22 Ferritin 11/05/22 Iron Level and TIBC 11/05/22 Most recent to oldest [Reference Range]: 1 BUN [7-18 mg/dL] 30 mg/dL *HI* (11/05/22 12:52 PM) Glucose Level [74-106 mg/dL] 127 mg/dL *HI* (11/05/22 12:52 PM) Potassium Level [3.5-5.1 mmol/L] 3.7 mmo l/L (11/05/22 12:52 PM) AST [15-37 unit/L] 11 unit/L *LOW* (11/05/22 12: PM) ALT [16-63 unit/L] 43 unit/L (11/05/22 12:52 PM) Sodium Level [136-145 mmol/L] 139 mmol/L (11/05/22 12:52 PM) Calcium Level [8.5-10.1 mg/dL] 8.8 mg/dL (11/05/22 12:52 PM) Albumin Level [3.4-5.0 g/dL] 3.9 g/dL (11/05/22 12:52 PM) Protein Total [6.4-8.2 g/dL] 7.6 g/dL (11/05/22 12:52 PM) Iron Sat [20-55 %] 72 % *HI* (11/05/22 12:52 PM) Bilirubin Total [0.2-1.0 mg/dL] 0.8 mg/d L (11/05/22 12:52 PM) Alk Phos [46-146 unit/L] 88 unit/L (11/05/22 12:52 PM) Ferritin Level [26-388 ng/mL] 57 ng/mL (11/05/22 12:52 PM) CO2 [21-32 mmol/L] 26 mmol/L (11/05/22 12:52 PM) TIBC [250-450 mcg/dL] 293 mcg/dL (11/05/22 12:52 PM) Iron [65-175 mcg/dL] 212 mcg/dL *HI* (11/05/22 12:52 PM) eGFR Non-AA [>=60] 49 *LOW* (11/05/22 12:52 PM) eGFR AA [>=60] 49 *LOW* (11/05/22 12:52 PM) Chloride Level [98-107 mmol/L] 103 mmol/ L (11/05/22 12:52 PM) Creatinine Level [0.70-1.30 mg/dL] 1.54 mg/dL *HI* (11/05/22 12:52 PM) Social History Social History Type Response Tobacco Never tobacco user T obacco Use:. Sex Male Patient Care team information Care Team Personnel Name: Santana Cordova-C Position: No Access Member Role: Primary Care Physician Address: Address: [address] [address]- [place] Name: Erinn Botello MD Position: PowerChart View Only Member Role: Informed Provider Address: Address: [address] [address] Care Team Related Persons Name: NORIS MORALES Address: Home
--- OUTSIDE RECORDS SUMMARY | 2024-05-07 12:06 | XMS_ITS | Referral Summary ---
Author Organization [facility] Address [address] [place] [address] Care Team Providers Care Wire Wrapping Machine Operator Name Role Phone Unknown, Provider Primary Care Provider Unava ilable Social History Tobacco Use Types Packs/Day Years Used Date Smoking Tobacco: Never Assessed Sex and Gender Information Value Date Recorded Sex Assigned at Not on file Legal Sex Male 10:31 EST Gender Identity Not on file Sexual Orientation Not on file Plan of Treatment Not on file Insurance MEDICARE [facility] Care Teams Wire Wrapping Machine Operator Relationship Specialty Start Date End Date Unknown, Provider, PCP - General 08/10/21
--- OUTSIDE RECORDS SUMMARY | 2024-05-07 12:06 | XMS_ITS | Encounter Summary ---
Author Organization [facility] Address [facility] [place] [address] Care Team Providers Care Raw Juice Weigher Name Role Phone Santana Cordova APRN Primary Care Provider +1- [phone] Encounter Details Date Type Department Care Team (Late st Contact Info) Description 02/27/2022 12:05 AM EDT Ancillary Procedure Radiology Library at [facility] [place] [address] Santana Cordova APRN [address] [place] [address] Social History Tobacco Use Types Packs/Day Years [...] LIBRARY STORAGE ONLY MR SPINE Routine 02/27/2022 12:05 AM EDT documented in this encounter Results * Film Library- Storage Only MR Spine (02/27/2022 12:05 AM EDT) Narrative [facility] - 02/28/2022 6:52 AM EDT This exam is auto-finalizing. It's purpose is for storage only. Santana Cordova APRN IMG FILM LIBRARY O RDERABLES [place], [place] documented in this encounter Visit Diagnoses Not on filedocumented in this encounter Care Teams Raw Juice Weigher Relationship Specialty Start Date End Date Santana Cordova APRN [address] [place] [address] PCP - General Family Medicine 10/16/21 documented as of this encounter
--- OUTSIDE RECORDS SUMMARY | 2024-05-07 12:06 | XMS_ITS | Encounter Summary ---
Author Organization [facility] Address [address] [place] [address] Care Team Providers Care Desk Maker Name Role Phone Unknown, Provider Primary Care Provider Luis hood Encounter Details Date Type Department Care Team (Late st Contact Info) Description 09/06/2021 Lab Requisition [facility] Pathology & Laboratory Medicine - [facility] [address] [place] [address] Outr Resulting Lab, Provider Social History Tobacco [...] Procedure Name Priority Date/Time Associated Diagnosis Comments SPEP WITH IMMUNOTYPING PERFORMABLE Today 09/06/2021 16:38 EDT SPEP WITH IMMUNOTYPING Routine 09/06/2021 16:38 EDT PROTEIN, TOTAL Today 09/06/2021 16:38 EDT documented in this encounter Results * (ABNORMAL) SPEP WITH IMMUNOTYPING PERFORMABLE (09/06/2021 16:38 EDT) Albumin % 59.0 55.8 - 66.1 % 09/07/2021 14:56 EDT [facility] Albumin g/dL 4.7 3.6 - 5.2 g/dL 09/07/2021 14:56 EDT [facility] Alpha-1 % 3.0 2.9 - 4.9 % 09/07/2021 14:56 EDT [facility] Alpha-1 g/dL 0.20 0.15 - 0.40 g/dL 09/07/2021 14:56 [facility] Alpha-2 % 8.9 7.1 - 11.8 % 09/07/2021 14:56 [facility] Alpha-2 g/dL 0.70 0.50 - 1.00 g/dL 09/07/2021 14:56 [facility] Beta % 13.3(H) 8.4 - 13.1 % 09/07/2021 14:56 [facility] Beta g/dL 1.10 0.60 - 1.20 g/dL 09/07/2021 14:56 [facility] Gamma % 15.8 11.1 - 18.8 % 09/07/2021 14:56 [facility] Gamma g/dL 1.30 0.60 - 1.60 g/dL 09/07/2021 14:56 [facility] SPEP Comment No apparent monoclonal protein seen on serum electrophoresis 09/07/2021 14:56 [facility] Comment:See scanned/suppleme ntary report. Immunotyping , Serum Current Interpretation: Negative for monoclonal immunoglobulins. Reviewed by: Ag Rodriguez MD, PhD 09/07/2021 14:10. 09/07/2021 14:56 [facility] Total Protein 8.0 6.3 - 8.2 g/dL 09/07/2021 14:56 [facility] Blood VENOUS BLOOD / Unknown 09/06/2021 16:38 EDT 09/06/2021 21:15 EDT us Provider Outr Resulting Lab CHEMISTRY & BLOOD GA S ORDERABLES Final Result [facility] [address] [place] [address] * PROTEIN, TOTAL (09/06/2021 16:38 EDT) Blood VENOUS BLOOD / Unknown 09/06/2021 16:38 EDT 09/06/2021 21:15 EDT us Provider Outr Resulting Lab CHEMISTRY & BLOOD GA S ORDERABLES Final Result [facility] [address] [place] [address] documented in this encounter Visit Diagnoses Not on filedocumented in this encounter Care Teams Desk Maker Relationship Specialty Start Date End Date Unknown, Provider, PCP - General 08/10/21 documented as of this encounter
--- OUTSIDE RECORDS SUMMARY | 2024-05-07 12:06 | XMS_ITS | Encounter Summary ---
[place] [address] Care Team Providers Care Manager Process Excellence Name Role Phone Santana Cordova APRN Primary Care Provider +1- [phone] Encounter Details Date Type Department Care Team (Latest Contact Info) Description 03/25/2022 Travel Social History Tobacco Use Types Packs/Day Years Used Date Smoking Tobacco: Never Assessed Sex and Gender Information Value Date Recorded Sex Assigned at Not on file Gender Identity Not on file Sexual Orientation Not on file documented as of this encounter Plan of Treatment Not on file documented as of this encounter Visit Diagnoses Not on filedocumented in this encounter Care Teams Manager Process Excellence Relationship Specialty Start Date End Date Santana Cordova APRN [address] [place] [address] PCP - General Family Medicine 10/16/21 documented as of this encounter
--- OUTSIDE RECORDS SUMMARY | 2024-05-07 12:06 | XMS_ITS | Encounter Summary ---
Author Organization Formerly [facility], Later [facility] Address [facility] [place] [address] Care Team Providers Care Sport Intern Name Role Phone Santana Cordova APRN Primary Care Provider +1- [phone] Encounter Details Date Type Department Care Team (Latest Contact Info) Description 12/17/2022 2:30 PM EDT - 12/17/2022 11:59 PM EDT Hospital Encounter XRay at [address] [place] [address] Joo Spain MD [facility] [place] [address] Chronic cough Discharge Disposition: Home Social History Tobacco Use [...] Sig Dispensed Refills Start Date End Date amLODIPine (Norvasc) 5 mg tablet Take 5 [...] Procedure Name Priority Date/Time Associated Diagnosis Comments XR CHEST PA AND LATERAL Routine 12/17/2022 2:41 PM EDT Chronic cough documented in this encounter Results * XR Chest PA & Lateral (Generic) (12/17/2022 2:41 PM EDT) Anatomical Region Laterality Modality Chest N/A Digital Radiogra phy Impressions 12/17/2022 7:34 PM EDT No acute cardiopulmonary processes. I have personally reviewed the image(s) and the resident's interpretation and agree with the findings, Louies Maradiaga MD at 12/17/2022 7:34 PM Thank you for letting us participate in the care of this patient. ??If you are a health care provider and have any questions regarding this report, please contact the number below. ??For patients who have questions please contact the health care transition manager that requested your imaging first. ? Narrative 12/17/2022 7:34 PM EDT EXAMINATION: XR CHEST PA AND LATERAL (GENERIC) CLINICAL HISTORY: chronic cough TECHNIQUE: PA and lateral views of the chest COMPARISON: No prior radiographs for comparison FINDINGS: Bilateral shoulder arthroplasty hardware is visualized. Low lung volumes accentuate the pulmonary lung markings. No airspace opacifications. No pleural effusions. No pneumothorax. Mild levoscoliosis of the thoracolumbar junction. No acute osseous findings. Procedure Note Louise Lowery MD - 12/17/2022 EXAMINATION: XR CHEST PA AND LATERAL (GENERIC) CLINICAL HISTORY: chronic cough TECHNIQUE: PA and lateral views of the chest COMPARISON: No prior radiographs for comparison FINDINGS: Bilateral shoulder arthroplasty hardware is visualized. Low lung volumes accentuate the pulmonary lung markings. No airspace opacifications. No pleural effusions. No pneumothorax. Mild levoscoliosisof the thoracolumbar junction. No acute osseous findings. IMPRESSION No acute cardiopulmonary processes. I have personally reviewed the image(s) and the resident's interpretationand agree with the findings, Louise Maradiaga MD at 12/17/2022 7:34PM Thank you for letting us participate in the care of this patient. If youare a health care provider and have any questions regarding this report,please contact the number below. For patients who have questions please contactthe health care transition manager that requested your imaging first. Electronically signed by: Louise Maradiaga MD, [facility] ([phone]), at 12/17/2022 7:34 PM Joo Hudson MD IMG DX ORDERABLES documented in this encounter Visit Diagnoses Diagnosis Chronic cough Cough documented in this encounter Care Teams Sport Intern Relationship Specialty Start Date End Date Santana Cordova, AIR HAMMER STRIPPER [address] [place] [address] PCP - General Family Medicine 10/16/21 documented as of this encounter
--- OUTSIDE RECORDS SUMMARY | 2024-05-07 12:06 | XMS_ITS | Encounter Summary ---
Author Organization Formerly [facility] Address [facility] [place] [address] Care Team Providers Care Malariologist Name Role Phone Santana Cordova CODEY Primary Care Provider +1- [phone] Reason for Referral * Consultation (Routine) - Duplicate Referral Specialty Diagnoses / Procedures Referred By Obed latif Referred To Contact Otolaryngology Diagnoses Bilateral tympanic membrane perforation Mixed conductive and sensorineural hearing loss, bilateral Norman Richard MD [address] [place] [address] [place] [address] Tucker Hernandez MD [facility] [place] [address] Referral ID Status Reason Start Date Expiration Date Visits Requested Visits Authorized [id number] Duplicate Referral Consult, Test & Treat 01/08/2022 01/08/2023 1 1 Encounter Details Date Type Department Care Team (Latest Contact Info) Description 01/08/2022 Transcribe Orders eDH Incoming Referrals [phone] Norman Richard MD [address] [place] [address] [address] [place], [place] [id number] Bilateral tympanic membrane perforation; Mixed conductive and sensorineural hearing loss, bilateral [...] Schedule Referral to ENT Outpatient Referral Routine Bilateral tympanic membrane perforation Mixed conductive and sensorineural hearing loss, bilateral Ordered: 01/08/2022 documented as of this encounter Visit Diagnoses Diagnosis Bilateral tympanic membrane perforation Perforation of tympanic membrane, unspecified Mixed conductive and sensorineural hearing loss, bilateral Mixed hearing loss, bilateral documented in this encounter Care Teams Malariologist Relationship Specialty Start Date End Date Santana Cordova, LICENSED PRACTICAL VOCATIONAL NURSE [address] [place] [address] PCP - General Family Medicine 10/16/21 documented as of this encounter
--- OUTSIDE RECORDS SUMMARY | 2024-05-07 12:06 | XMS_ITS | Encounter Summary ---
Author Organization [facility] Address [facility] [place] [address] Care Team Providers Care Remote Broadcast Engineer Name Role Phone Santana Cordova APRN Primary Care Provider +1- [phone] Encounter Details Date Type Department Care Team (Late st Contact Info) Description 03/29/2024 Telephone Otolaryngology at [facility] [place] [id number] Edith Higgins Social History Tobacco Use Types Packs/Day Years [...] encounter Miscellaneous Notes * Telephone Encounter - Edith Higgins - 03/29/2024 12:47 PM EST Called to reschedule appt with RS. LONG for pt to call back. Needs AE prior to. documented in this encounter Plan of Treatment Not on file documented as of this encounter Visit Diagnoses Not on filedocumented in this encounter Care Teams Remote Broadcast Engineer Relationship Specialty Start Date End Date Santana Cordova APRN [address] [place] [address] PCP - General Family Medicine 10/16/21 documented as of this encounter
--- OUTSIDE RECORDS SUMMARY | 2024-05-07 12:06 | XMS_ITS | Encounter Summary ---
Author Organization [facility] Address [address] [place] [address] Care Team Providers Care Sander And Polisher Name Role Phone Unknown, Provider Primary Care Provider Luis hood Encounter Details Date Type Department Care Team (Late st Contact Info) Description 06/20/2021 Lab Requisition [facility] Pathology & Laboratory Medicine - [facility] [address] [place] [address] Outr Resulting Lab, Provider Social History Tobacco [...] Procedure Name Priority Date/Time Associated Diagnosis Comments ZZCOVID-19 TEST [facility] PCR Today 06/19/2021 14:50 EST COVID-19 TESTING Routine 06/19/2021 14:5 0 EST documented in this encounter Results * COVID-19 TEST [facility] PCR (06/19/2021 14:50 EST) Swab 06/19/2021 14:5 0 EST 06/20/2021 20:20 EST us Provider Outr Resulting Lab MICROBIOLOGY - GENER AL ORDERABLES Final Result [facility] [address] [place] [address] * COVID-19 TESTING (06/19/2021 14:50 EST) COVID-19 rt-PCR Result Negative Negative 06/21/2021 13:01 EST [facility] Comment: This test has not been FDA cleared or approved. This test has been authorized by FDA under an EUA for use by authorized laboratories. This test has been authorized only for detection of nucleic acid from 2019-nCoV, not for any other viruses or pathogens. This test is only authorized for the duration of the declaration that circumstances exist justifying the authorization of emergency use of in vitro diagnostic tests for detection and/or diagnosis of 2019-nCoV under section 564(b)(1) of Act, 21 U.S.C ?? 360bbb-3(b) (1), unless the authorization is terminated or revoked sooner. Negative results do not preclude 2019-nCoV infection and should not be used as the sole basis for treatment or other patient management decisions. Negative results must be combined with clinical observations, patient history, and epidemiological information. Testing was performed using the see SARS-CoV-2 assay ([employer] on the See 6800 System Performing Lab See [address] [facility] 06/21/2021 13:01 EST [facility] Swab 06/19/2021 14:5 0 EST 06/20/2021 20:20 EST us Provider Outr Resulting Lab MICROBIOLOGY - GENER AL ORDERABLES Final Result [facility] [address] [place] [address] documented in this encounter Visit Diagnoses Not on filedocumented in this encounter Care Teams Sander And Polisher Relationship Specialty Start Date End Date Unknown, Provider, PCP - General 08/10/21 documented as of this encounter
--- OUTSIDE RECORDS SUMMARY | 2024-05-07 12:06 | XMS_ITS | Encounter Summary ---
Author Organization [facility] [place] [address] Care Team Providers Care Dressmaker Helper Name Role Phone Santana Cordova APRN Primary Care Provider +1- [phone] Encounter Details Date Type Department Care Team (Latest Contact Info) Description 01/28/2024 Travel Social History Tobacco Use Types Packs/Day [...] on filedocumented in this encounter Care Teams Dressmaker Helper Relationship Specialty Start Date End Date Santana Cordova APRN [address] [place] [address] PCP - General Family Medicine 10/16/21 documented as of this encounter
--- OUTSIDE RECORDS SUMMARY | 2024-05-07 12:06 | XMS_ITS | Encounter Summary ---
Author Organization [facility] [address] Care Team Providers Care Network Operations Center Technician Name Role Phone Santana Cordova APRN Primary Care Provider +1- [phone] Encounter Details Date Type Department Care Team (Latest Contact Info) Description 04/23/2024 Travel Social History Tobacco Use Types Packs/Day [...] on filedocumented in this encounter Care Teams Network Operations Center Technician Relationship Specialty Start Date End Date Santana Cordova APRN [address] [place] [address] PCP - General Family Medicine 10/16/21 documented as of this encounter
--- OUTSIDE RECORDS SUMMARY | 2024-05-07 12:06 | XMS_ITS | Encounter Summary ---
Author Organization [facility] [place] [address] Care Team Providers Care Pharmacy Sales Representative Name Role Phone Santana Cordova APRN Primary Care Provider +1- [phone] Encounter Details Date Type Department Care Team (Late st Contact Info) Description 03/31/2024 [place] [id number] Kaylan Zuleta Social History Tobacco Use Types Packs/Day Years [...] on filedocumented in this encounter Care Teams Pharmacy Sales Representative Relationship Specialty Start Date End Date Santana Cordova APRN [address] [place] [address] [address] [place] [address] PCP - General Family Medicine 10/16/21 documented as of this encounter
--- OUTSIDE RECORDS SUMMARY | 2024-05-07 12:06 | XMS_ITS | Encounter Summary ---
Author Organization [facility] Address [address] [place] [address] Care Team Providers Care Product Steward Name Role Phone Unknown, Provider Primary Care Provider Luis hood Encounter Details Date Type Department Care Team (Late st Contact Info) Description 01/21/2024 Lab Requisition [facility] Pathology & Laboratory Medicine - [facility] [address] [place] [address] Judi Beard, DO [address] [place], [place] [id number] Encounter for other general examination Social History Tobacco Use Types Packs/Day Years [...] Procedure Name Priority Date/Time Associated Diagnosis Comments SURGICAL PATHOLOGY Today 01/20/2024 14 :00 EDT Encounter for other general examination documented in this encounter Results * SURGICAL PATHOLOGY (01/20/2024 14:00 EDT) Note to Patient The following pathology results have been interpreted by your pathologist and may be available to you before your health provider has had the opportunity to review them. Please allow time for your provider to receive these results and explore management options, if applicable. 01/23/2024 11:00 EDT [facility] Final Diagnosis A. SOFT TISSUE, SHOULDER, RIGHT, EXCISION: - Mature fibroadipose tissue, consistent with lipoma. B. DUODENAL BULB, BIOPSY: - Duodenal mucosa with no significant histopathologic features. C. STOMACH, ANTRUM, BIOPSY: - Antral mucosa with chemical (reactive) gastropathy. D. STOMACH, GREATER CURVE, BIOPSY: - Oxyntic mucosa with no significant histopathological features. E. GASTROESOPHAGEAL JUNCTION, BIOPSIES: - Squamocolumnar mucosa with mild reactive features. - Negative for intestinal metaplasia. - Negative for dysplasia. F. ESOPHAGUS, DISTAL, BIOPSY: - Squamocolumnar mucosa with no significant histopathological features. - Negative for intestinal metaplasia. - Negative for dysplasia. 01/23/2024 11:00 [facility] Attestation There was significant resident/fellow involvement in the diagnostic evaluation of this case. By the signature below, the attending physician certifies that they have personally conducted a gross and/or microscopic examination of the described specimens and rendered or confirmed the above diagnosis. 01/23/2024 11:00 [facility] at 1100 Clinical History Lipoma right shoulder, esophagitis 01/23/2024 11:00 [facility] Gross Description A. Received in formalin labelled with proper patient identification (initials W, W) and right shoulder lipoma is a 23.8 g, 4.8 x 4.5 x 2.5 cm circular portion of adipose tissue. The specimen is covered by a thin, translucent capsule. The outer surface is inked blue. Sectioning reveals homogenous, pale yellow cut surfaces. No firm areas identified. Mortgage Or Loan Underwriter sections are submitted in A1-A3. B. Received in formalin labelled with proper patient identification (initials W, W) and duodenal bulb bx is a single fragment of pastrana tissue (0.4 x 0.3 x 0.2 cm). The specimen is entirely submitted in B1. C. Received in formalin labelled with proper patient identification (initials W, W) and antrum bx is a single fragment of pastrana tissue (0.4 x 0.3 x 0.2 cm). The specimen is entirely submitted in C1. D. Received in formalin labelled with proper patient identification (initials W, W) and greater curve bx is a single fragment of pastrana tissue (0.4 x 0.3 x 0.2 cm). The specimen is entirely submitted in D1. E. Received in formalin labelled with proper patient identification (initials W, W) and GE junction bx x2 are 3 fragments of pastrana tissue (ranging from 0.3 cm to 0.4 cm in greatest dimension). The specimen is entirely submitted in E1. F. Received in formalin labelled with proper patient identification (initials W, W) and distal esophagus bx are 2 fragments of pastrana-white tissue (0.3 x 0.3 x 0.2 cm and 0.4 x 0.3 x 0.2 cm). The specimen is entirely submitted in F1. KAMRON BERKOWITZ(ASCP) 01/21/2024 10:48 01/23/2024 11:00 EDT [facility] Resident/Fell ow: Osorio Day DO 01/23/2024 11:00 EDT [facility] Performing Lab [facility] 01/23/2024 11:00 EDT [facility] Scanned Images 01/23/2024 11:00 EDT [facility] Tissue ESOPHAGEAL STRUCTURE / Unknown 01/20/2024 14:00 EDT 01/21/2024 8:42 EDT Tissue specimen (specimen) STRUCTURE OF SMALL INTESTINE / Unknown 01/20/2024 14:00 EDT 01/21/2024 8:42 EDT Tissue specimen (specimen) STOMACH STRUCTURE / Unknown 01/20/2024 14:00 EDT 01/21/2024 8:42 EDT Tissue specimen (specimen) STOMACH STRUCTURE / Unknown 01/20/2024 14:00 EDT 01/21/2024 8:42 EDT Tissue specimen (specimen) ESOPHAGEAL STRUCTURE / Unknown 01/20/2024 14:00 EDT 01/21/2024 8:42 EDT Tissue specimen (specimen) ESOPHAGEAL STRUCTURE / Unknown 01/20/2024 14:00 EDT 01/21/2024 8:42 EDT us Judi Beard DO PATHOLOGY ORDERABLES Final Re sult [facility] [address] [place] [address] documented in this encounter Visit Diagnoses Diagnosis Encounter for other general examination documented in this encounter Care Teams Product Steward Relationship Specialty Start Date End Date Unknown, Provider, PCP - General 08/10/21 documented as of this encounter
--- OUTSIDE RECORDS SUMMARY | 2024-05-07 12:06 | XMS_ITS | Encounter Summary ---
[place] [address] Care Team Providers Care Technical Coordinator Name Role Phone Santana Cordova CODEY Primary Care Provider +1- [phone] Reason for Referral * Consultation (Routine) - Authorized Specialty Diagnoses / Procedures Referred By Obed t Referred To Contact Otolaryngology Diagnoses Chronic cough PT W/ CHRONIC COUGH, NEGATIVE CHEST IMAGING, NEG PFT'S - HAS TRIALED INHALERS, LYRICA AND GABAPENTIN, NASL SPRAY W/O RELIEF FROM COUGH. REPORTS PERFORATED EAR DRUMS. ALSO A L LATERALLY DISPLACED UVULA. WOULD APPRECIATE ELIUD DEVLIN Sarah Allison, PA [address] [place] [address] [place] [address] [facility] [address] [place] [phone] Referral ID Status Reason Start Date Expiration Date Visits Requested Visits Authorized [id number] Authorized Consult, Test & Treat PCP Updated and/or Approved 11/27/2023 11/26/2024 6 6 Encounter Details Date Type Department Care Team (Late st Contact Info) Description 12/05/2023 Transcribe Orders eDH Incoming Referrals [phone] Luly Crandall PA [address] [place] [address] [address] [place], [place] [id number] Chronic cough Social History Tobacco Use Types [...] Schedule Referral to ENT Outpatient Referral Routine Chronic cough Ordered: 12/05/2023 documented as of this encounter Visit Diagnoses Diagnosis Chronic cough Cough documented in this encounter Care Teams Technical Coordinator Relationship Specialty Start Date End Date Santana Cordova, VISITOR SERVICES ASSOCIATE [address] [place] [address] PCP - General Family Medicine 10/16/21 documented as of this encounter
--- OUTSIDE RECORDS SUMMARY | 2024-05-07 12:06 | XMS_ITS | Encounter Summary ---
Author Organization [facility] [place] [address] Care Team Providers Care Printing Press Operator Apprentice Name Role Phone Santana Cordova APRN Primary Care Provider +1- [phone] Encounter Details Date Type Department Care Team (Late st Contact Info) Description 04/10/2022 Tele[place] [address] Earnestine Ozuna Social History Tobacco Use Types Packs/Day Years Used Date Smoking Tobacco: Never Assessed Sex and Gender Information Value Date Recorded Sex Assigned at Not on file Gender Identity Not on file Sexual Orientation Not on file documented as of this encounter Miscellaneous Notes * Telephone Encounter - Earnestine Ozuna - 04/10/2022 4:40 PM EST Called pt to sched geoff ivcs colo-had to lvm documented in this encounter Plan of Treatment Not on file documented as of this encounter Visit Diagnoses Not on filedocumented in this encounter Care Teams Printing Press Operator Apprentice Relationship Specialty Start Date End Date Santana Cordova APRN [address] [place] [address] PCP - General Family Medicine 10/16/21 documented as of this encounter
--- OUTSIDE RECORDS SUMMARY | 2024-05-07 12:06 | XMS_ITS | Clinical Summary ---
Author Organization [facility] Address [facility] [place] [address] Care Team Providers Care Java Development Manager Name Role Phone Santana Cordova CODEY Primary Care Provider +1- [phone] Allergies Active Allergy Reactions Criticality Noted Date Comments Gadolinium-Containing Contrast Media 12/17/2022 Sulfa (Sulfonamide Antibiotics) 12/2022 Medications Medication Sig Dispensed Refills Start Date End Date Status amLODIPine (Norvasc) 5 mg tablet Take 5 mg by mouth daily. Active benzonatate (Tessalon) 100 mg capsule TAKE ONE CAPSULE BY MOUTH TWICE A DAY NEEDED FOR COUGH 07/16/2022 Active diclofenac EC (Voltaren) [address] tablet Take 75 mg by mouth 2 times daily. 09/27/2022 Active levothyroxine (Synthroid) 100 mcg tablet Take 100 mcg by mouth daily. 09/27/2022 Active metoproloL tartrate (Lopressor) 25 mg tablet Take 25 mg by mouth 2 times daily. 09/27/2022 Active omeprazole (PriLOSEC) [address] capsule Take 40 mg by mouth daily. Active famotidine (Pepcid) 40 mg tablet Take 1 tablet by mouth nightly. 30 tablet 2 01/28/2024 Active ofloxacin (Floxin) 0.3 % Drops Place 5 drops into both ears daily. 5 mL 3 04/23/2024 Active Encounters Date Type Department Care Team Description 04/23/2024 4:00 PM EST Office [place] [address] Khanh Skelton III, MD Perforation of right tympanic membrane; Elongated uvula, acquired 04/23/2024 3:00 PM EST Office Visit Audiology at [address] [address] Dalia Kelly A, AUD Mixed conductive and sensorineural hearing loss, bilateral 04/23/2024 Travel 04/11/2024 12:36 PM EST - 04/11/2024 11:59 PM EST [place] [address] Erinn Botello MD Hemochromatosis, unspecified hemochromatosis type Discharge Disposition: Home 04/11/2024 Travel 03/31/2024 Telephone [place] [address] Kaylan Zuleta 03/29/2024 [place] [address] Edith Higgins from Last 3 Months Family History Medical History Relation Comments Lung Cancer Mother Relation Status Comments Mother Social History Tobacco Use Types Packs/Day Years [...] on file Sexual Orientation Not on file Last Filed Vital Signs Vital Sign Reading Time Taken Comments Blood Pressure 113/82 12/17/2022 3:00 PM EDT Pulse 88 12/17/2022 3:00 PM EDT Temperature 35.8 ??C (96.4 ??F) 12/17/2022 3:00 PM ED T Respiratory Rate 16 12/17/2022 3:00 PM EDT Oxygen Saturation 98% 12/17/2022 3:00 PM EDT Inhaled Oxygen Concentration - - Weight 102.1 kg (225 lb) 04/23/2024 4:10 PM EST Height 170.2 cm (5' 7) 04/23/2024 4:10 PM EST Body Mass Index 35.24 04/23/2024 4:10 PM EST Plan of Treatment Health Maintenance Due Date Last Done Comments CT Colonography 1954 Colonoscopy 1954 Colorectal Cancer Screening 1954 FIT DNA 1954 FIT 1954 Sigmoidoscopy (10 year) with FIT yearly 1954 Sigmoidoscopy 1954 Hepatitis C Screening 1972 Lipid Screening 1972 Tetanus/Diphtheria/Pertussis Vaccines (1 - Tdap) 06/08 Diabetes Screening (HgbA1C or Glucose) 1994 Pneumoccocal Vaccine: 65+ (1 of 1 - PCV) 2004 Zoster vaccine (1 of 2) 2004 Advance Directive 2009 AAA Screen 2019 Covid-19 Vaccine (1 - season) 2024 Influenza (Flu) vaccine (1 o f 1 - Influenza standard series) 01/11/2024 Procedures Procedure Name Priority Date/Time Associated Diagnosis Comments COMPREHENSIVE HEARING TEST Routine 04/23/2024 2:24 PM EST MRI ABDOMEN WO CONTRAST Routine 04/11/2024 1:33 PM EST Hemochromatosis, unspecified hemochromatosis type ORDS - PROVIDER CARE SCAN 03/30/2024 12:00 AM EST ORDS - PROVIDER CARE SCAN 03/30/2024 12:00 AM EST ORDS - PROVIDER CARE SCAN 03/30/2024 12:00 AM EST ORDS - PROVIDER CARE SCAN 03/26/2024 12:00 AM EST ORDS - PROVIDER CARE SCAN 03/25/2024 12:00 AM EST ORDS - PROVIDER CARE SCAN 03/23/2024 12:00 AM EST from Last 3 Months Results * Comprehensive hearing test (04/23/2024 2:24 PM EST) 04/23/2024 2:24 PM EST Narrative AUDBASE COMP - 04/23/2024 2:24 PM EST - Follow-up with Dr. Skelton in Otolaryngology as scheduled. Procedure Note Unknown - 04/23/2024 - Follow-up with Dr. Skelton in Otolaryngology as scheduled. Dalia Kelly AUD AUDIOLOGY SERVICES O RDERABLES AUDBASE COMP * MRI Abdomen wo Contrast (04/11/2024 1:33 PM EST) WORKSTATION ID [id number] RAD Anatomical Region Laterality Modality Abdomen Magnetic Resonan [...] who have questions please contact the health ambulatory care nurse that requested your imaging first. ? Electronically signed by: CHELO Vogel [facility] ([phone]), at 04/12/2024 11:38 AM Narrative 04/12/2024 11:38 [...] patients who have questions please contactthe health ambulatory care nurse that requested your imaging first. Erinn Botello MD [facility] MRI ORDERABLES * Scan Doc: Ords - Provider Care (03/30/2024 12:00 AM EST) Only the most recent of6 resultswithin the time period is included. Narrative 03/30/2024 12:00 AM EST Ordered by an unspecified provider. Scanning Provider MEDIA MGR SCAN EXT O RDR/RSLT from Last 3 Months Care Teams Java Development Manager Relationship Specialty Start Date End Date Santana Cordova APRN [address] [place] [address] PCP - General Family Medicine 10/16/21
--- OUTSIDE RECORDS SUMMARY | 2024-05-07 12:06 | XMS_ITS | Encounter Summary ---
[place] [address] Care Team Providers Care Commercial Litigation Paralegal Name Role Phone Santana Cordova APRN Primary Care Provider +1- [phone] Encounter Details Date Type Department Care Team (Late st Contact Info) Description 10/08/2022 Tele[place] [phone] Negrita Ramirez Social History Tobacco Use Types Packs/Day Years Used Date Smoking Tobacco: Never Assessed Sex and Gender Information Value Date Recorded Sex Assigned at Not on file Gender Identity Not on file Sexual Orientation Not on file documented as of this encounter Plan of Treatment Not on file documented as of this encounter Visit Diagnoses Not on filedocumented in this encounter Care Teams Commercial Litigation Paralegal Relationship Specialty Start Date End Date Santana Cordova APRN [address] [place] [address] PCP - General Family Medicine 10/16/21 documented as of this encounter
--- OUTSIDE RECORDS SUMMARY | 2024-05-07 12:06 | XMS_ITS | Continuity of Care Document ---
Author Organization [facility] Address [address] [place] [address] Care Team Providers Care Supervisor Industrial Arts Education Name Role Phone Santana Cordova Primary Care Physician [phone] Encounter [facility] Date(s): 05/07/23 - 05/07/[address] [address] Discharge Disposition: Home or Self Care Attending [...] information Care Team Personnel Name: Santana Cordova FINANCIAL REPORTING ADVISOR-Vidhya Position: No Access Member Role: Informed Provider Address: Address: [address] Care Team Related Persons Name: NORIS MORALES
--- OUTSIDE RECORDS SUMMARY | 2024-05-07 12:06 | XMS_ITS | Encounter Summary ---
[place] [address] Care Team Providers Care Environmental Issues Instructor Name Role Phone Santana Cordova APRN Primary Care Provider +1- [phone] Encounter Details Date Type Department Care Team (Late st Contact Info) Description 10/08/2022 Telephone [place] [phone] Negrita Ramirez Social History Tobacco Use Types [...] on filedocumented in this encounter Care Teams Environmental Issues Instructor Relationship Specialty Start Date End Date Santana Cordova APRN [address] [place] [address] PCP - General Family Medicine 10/16/21 documented as of this encounter
--- OUTSIDE RECORDS SUMMARY | 2024-05-07 12:06 | XMS_ITS | Encounter Summary ---
[place] [address] Care Team Providers Care Deportation Examiner Name Role Phone Santana Cordova APRN Primary Care Provider +1- [phone] Encounter Details Date Type Department Care Team (Late st Contact Info) Description 08/16/2022 Telephone [place] [address] SubhaAugust L Social History Tobacco Use Types Packs/Day Years Used Date Smoking Tobacco: Never Assessed Sex and Gender Information Value Date Recorded Sex Assigned at Not on file Gender Identity Not on file Sexual Orientation Not on file documented as of this encounter Plan of Treatment Not on file documented as of this encounter Visit Diagnoses Not on filedocumented in this encounter Care Teams Deportation Examiner Relationship Specialty Start Date End Date Santana Cordova APRN [address] [place] [address] PCP - General Family Medicine 10/16/21 documented as of this encounter
--- OUTSIDE RECORDS SUMMARY | 2024-05-07 12:06 | XMS_ITS | Clinical Summary ---
Author Organization [facility] Address [address] [place] [address] Care Team Providers Care Silvering Department Supervisor Name Role Phone Unknown, Provider Primary Care Provider Unava ilable Social History Tobacco Use Types Packs/Day Years Used Date Smoking Tobacco: Never Assessed Sex and Gender Information Value Date Recorded Sex Assigned at Not on file Legal Sex Male 10:31 EST Gender Identity Not on file Sexual Orientation Not on file Plan of Treatment Health Maintenance Due Date Last Done Comments Hepatitis C Screen 1954 Fall Risk Screening 2019 COVID-19 Vaccine (2023- season) 2024 RSV Immunization ( o r 60+ Years) (1 - 1-dose 75+ series) 2029 Insurance MEDICARE [facility] Care Teams Silvering Department Supervisor Relationship Specialty Start Date End Date Unknown, Provider, PCP - General 08/10/21
--- OUTSIDE RECORDS SUMMARY | 2024-05-07 12:06 | XMS_ITS | Encounter Summary ---
Author Organization [facility] Address [facility] [place] [address] Care Team Providers Care Automobile Mechanic Motor Name Role Phone Santana Cordova APRN Primary Care Provider +1- [phone] Encounter Details Date Type Department Care Team (Late st Contact Info) Description 10/08/2022 Orders [place] [address] Joo Spain MD [facility] [place] [address] Chronic cough (Primary Dx) Social History Tobacco Use Types Packs/Day Years Used Date Smoking Tobacco: Never Assessed Sex and Gender Information Value Date Recorded Sex Assigned at Not on file Gender Identity Not on file Sexual Orientation Not on file documented as of this encounter Plan of Treatment Not on file documented as of this encounter Results * XR Chest PA & Lateral (Generic) (12/17/2022 2:41 PM EDT) Anatomical Region Laterality Modality Chest N/A Digital Radiogra phy Impressions 12/17/2022 7:34 PM EDT No acute cardiopulmonary processes. I have personally reviewed the image(s) and the resident's interpretation and agree with the findings, Louise Maradiaga MD at 12/17/2022 7:34 PM Thank you for letting us participate in the care of this patient. ??If you are a health care provider and have any questions regarding this report, please contact the number below. ??For patients who have questions please contact the health critical care unit nurse that requested your imaging first. ? Electronically signed by: Louise Maradiaga MD, [facility] ([phone]), at 12/17/2022 7:34 PM Narrative 12/17/2022 7:34 PM EDT EXAMINATION: XR [...] patients who have questions please contactthe health critical care unit nurse that requested your imaging first. Electronically signed by: Louise Maradiaga MD, [facility] ([phone]), at 12/17/2022 7:34 PM Joo Hudson MD IMG DX ORDERABLES documented in this encounter Visit Diagnoses Diagnosis Chronic cough- Primary Cough Chronic cough Cough documented in this encounter Care Teams Automobile Mechanic Motor Relationship Specialty Start Date End Date Santana Cordova, COMPUTER TRAINING SPECIALIST [address] [facility] [address] [place] [address] PCP - General Family Medicine 10/16/21 documented as of this encounter
--- OUTSIDE RECORDS SUMMARY | 2024-05-07 12:07 | XMS_ITS | Encounter Summary ---
Author Organization [facility] Address [facility] [place] [address] Care Team Providers Care Epic Director Name Role Phone Unavailable Primary Care Provider Unavailabl e Encounter Details Date Type Department Care Team (Late st Contact Info) Description 09/21/2021 12:05 AM EDT Ancillary Procedure Radiology at [facility] [address] [place] [address] Spencer Jacques MD [address] [place] [address] Social History Tobacco Use Types Packs/Day Years [...] FILM LIBRARY STORAGE ONLY MR SPINE Routine 09/21/2021 12:05 AM EDT documented in this encounter Results * Film Library- Storage Only MR Spine (09/21/2021 12:05 AM EDT) Narrative RAD - 09/28/2021 11:09 AM EDT This exam is auto-finalizing. It's purpose is for storage only. Spencer Jacques MD IMG FILM LIBRARY ORD ERABLES [place], [place] documented in this encounter Visit Diagnoses Not on filedocumented in this encounter
--- OUTSIDE RECORDS SUMMARY | 2024-05-07 12:07 | XMS_ITS | Encounter Summary ---
Author Organization [facility] [place] [address] Care Team Providers Care Income Tax Consultant Name Role Phone Santana Cordova APRN Primary Care Provider +1- [phone] Reason for Referral * Consultation (Routine) - Closed Specialty Diagnoses / Procedures Referred By Contac t Referred To Contact Pain and Spine Center Diagnoses Dorsalgia Spine- Lumbar DDD/ stenosis/ Scoli/ MRI T & L 09/21/21 in [facility]/cuurently doing PT/CHIDI in past 1yr ago Santana Cordova APRN [address] [place] [address] [facility] [place] [address] Referral ID Status Reason Start Date Expiration Date V isits Requested Visits Authorized [id number] Closed Consult, Test & Treat PCP Updated and/or Approved 10/16/2021 10/16/2022 6 6 Encounter Details Date Type Department Care Team (Late st Contact Info) Description 10/16/2021 Transcribe Orders e[facility] Incoming Referrals [phone] Santana Cordova APRN [address] [place], [place] [address] Dorsalgia Social History Tobacco Use Types Packs/Day Years Used Date Smoking Tobacco: Never Assessed Sex and Gender Information Value Date Recorded Sex Assigned at Not on file Gender Identity Not on file Sexual Orientation Not on file documented as of this encounter Plan of Treatment Scheduled Referrals Name Type Priority Associated Diagnoses Orde r Schedule Referral to Spine Center Outpatient Referral Routine Dorsalgia Ordered: 10/16/2021 documented as of this encounter Visit Diagnoses Diagnosis Dorsalgia Pain in thoracic spine documented in this encounter Care Teams Income Tax Consultant Relationship Specialty Start Date End Date Santana Cordova, CHART CHANGER [address] [place] [address] PCP - General Family Medicine 10/16/21 documented as of this encounter
--- OUTSIDE RECORDS SUMMARY | 2024-05-07 12:07 | XMS_ITS | Encounter Summary ---
Author Organization [facility] Address [facility] [place] [address] Care Team Providers Care Taping Supervisor Name Role Phone Unavailable Primary Care Provider Unavailabl e Encounter Details Date Type Department Care Team (Late st Contact Info) Description 09/12/2021 Ancillary Procedure Radiology Library at [facility] [place] [place] [address] Santana Cordova APRN [address] [place] [address] Social History Tobacco Use Types Packs/Day Years [...] Associated Diagnosis Comments FILM LIBRARY STORAGE ONLY CT ABDOMEN AND PELVIS Routine 09/12/2021 12:00 AM EDT documented in this encounter Results * Film Library- Storage Only CT Abdomen & Pelvis (09/12/2021 12:00 AM EDT) Narrative JOHN - 10/10/2021 1:39 PM EDT This exam is auto-finalizing. It's purpose is for storage only. Santana Cordova APRN IMG FILM LIBRARY O RDERABLES [facility] [place] documented in this encounter Visit Diagnoses Not on filedocumented in this encounter
--- OUTSIDE RECORDS SUMMARY | 2024-05-07 12:07 | XMS_ITS | Encounter Summary ---
Author Organization [facility] [place] [address] Care Team Providers Care Can Line Examiner Name Role Phone Santana Cordova CODEY Primary Care Provider +1- [phone] Reason for Referral * Consultation (Routine) - Closed Specialty Diagnoses / Procedures Referred By Obed latif Referred To Contact Gastroenterology Diagnoses Abdominal pain, unspecified abdominal location abd pain Steph Cisse PA [address] [place] [address] [facility] [address] [place] [address] Referral ID Status Reason Start Date Expiration Date V isits Requested Visits Authorized [id number] Closed Consult, Test & Treat 12/03/2021 12/03/2022 1 1 Encounter Details Date Type Department Care Team (Latest Contact Info) Description 12/03/2021 Transcribe [place] [address] Dana Orozco Abdominal pain, unspecified abdominal location (Primary Dx) Social History Tobacco Use Types Packs/Day Years Used Date Smoking Tobacco: Never Assessed Sex and Gender Information Value Date Recorded Sex Assigned at Not on file Gender Identity Not on file Sexual Orientation Not on file documented as of this encounter Plan of Treatment Scheduled Referrals Name Type Priority Associated Diagnoses Order Schedule Referral to Gastroenterology Outpatient Referral Routine Abdominal pain, unspecified abdominal location Ordered: 12/03/2021 documented as of this encounter Visit Diagnoses Diagnosis Abdominal pain, unspecified abdominal location- Primary documented in this encounter Care Teams Can Line Examiner Relationship Specialty Start Date End Date Santana Cordova, CURTAIN MENDER [address] [place] [address] PCP - General Family Medicine 10/16/21 documented as of this encounter
--- OUTSIDE RECORDS SUMMARY | 2024-05-07 12:07 | XMS_ITS | Encounter Summary ---
Author Organization [facility] Address [facility] [place] [address] Care Team Providers Care Transfer Agent Name Role Phone Unavailable Primary Care Provider Unavailabl e Reason for Visit * (Routine) - Closed Specialty Diagnoses / Procedures Referred By Oebd t Referred To Contact Radiology Diagnoses Scoliosis, unspecified scoliosis type, unspecified spinal region Procedures Request for 2nd read MR Spine Santana Cordova, CODEY [address] [place] [address] Referral ID Status Reason Start Date Expiration Date Visits Re quested Visits Authorized [id number] Closed 10/10/2021 10/10/2022 1 1 Encounter Details Date Type Department Care Team (Late st Contact Info) Description 10/10/2021 4:30 PM EDT Ancillary Procedure Radiology Library [place] [facility] [place] [address] Santana Cordova, GUARD CHIEF [address] [place], [place] [id number] Scoliosis, unspecified scoliosis type, unspecified spinal region Social History Tobacco Use Types Packs/Day Years Used Date Smoking Tobacco: Never Assessed Sex and Gender Information Value Date Recorded Sex Assigned at Not on file Gender Identity Not on file Sexual Orientation Not on file documented as of this encounter Plan of Treatment Not on file documented as of this encounter Procedures Procedure Name Priority Date/Time Associated Diagnosis Comments REQUEST FOR 2ND READ MR SPINE Routine 10/10/2021 4:20 PM EDT Scoliosis, unspecified scoliosis type, unspecified spinal region documented in this encounter Results * Request for 2nd read MR Spine (10/10/2021 4:20 PM EDT) Anatomical Region Laterality Modality SO Impressions 10/10/2021 4:35 PM EDT Small subdural collection moderately narrowing the spinal canal from L2 through L3. This most likely represents blood products, question recent intervention. Follow-up examination could be done with contrast to establish resolution. Thoracic and lumbar spondylosis. Thank you for letting us participate in the care of this patient. ??If you are a health care provider and have any questions regarding this report, please contact the number below. ??For patients who have questions please contact the health care trainer that requested your imaging first. ? Electronically signed by: Kellie Li MD, [facility] ([phone]), at 10/10/2021 4:35 PM Narrative 10/10/2021 4:35 PM EDT EXAMINATION: REQUEST FOR 2ND READ MR SPINE CLINICAL HISTORY: Concerned might have more going on than was previously diagnosed; Sending Institution [facility]; Date of exam [id number]; I believe a reinterpretation of this exam may alter care of Patient. Yes; Concerned might have more going on than was previously diagnosed TECHNIQUE: Reinterpretation of the thoracic and lumbar spine without contrast. Somewhat thick imaging at 3 mm sagittal with 0.6 skip and 5 mm axial with a 1 mm skip in the thoracic spine and 4 mm thick with a 0.8 skip sagittal and 4 mm with 1 mm skip axials in the lumbar spine. COMPARISON: CT abdomen and pelvis 09/12/2021. FINDINGS: Thoracic spine: Rightward convex curvature of the thoracic spine. Multilevel disc degeneration with loss of normal T2 signal within the disc space and disc height loss greater on concave portion of the curvature. Endplate marrow edema at T9 and T9-10 related to disc degeneration. Thoracic cord signal is normal. Multiple disc herniations including T6-7, T7-8, T8-9, T9-10, T10 11 minimally narrowing the central canal. Facet arthropathy moderately narrows the left foramina at T6-7, T7-8, T9-10 and severely narrows the left foramina at T10-11. Lumbar spine: A transitional situation is present with the transverse processes of L5 articulating with the sacral ala bilaterally but with a complete disc space at L5-S1. Leftward convex curvature of the upper lumbar spine with rightward convex curvature of the lower lumbar spine. Mild anterolisthesis of T12 with respect to L1 on a degenerative basis. Mild retrolisthesis of and L2 with respect to L3, L3 with respect to L4 on a degenerative basis. Endplate marrow fatty change and sclerosis greater on concave portions of the curvature related to asymmetric disc degeneration. The conus is normal in signal terminating at L1. There is a mixed signal T1 intermediate and T2 hyperintense subdural collection along the dorsal and left lateral aspect of the spinal canal extending from L2 through L3. The subdural collection moderately narrows the spinal canal. Evidence of prior surgical posterior decompression at L2-3. T12-L1: Endplate proliferation and facet arthropathy moderately narrows the right and mildly narrows the left foramina. L1-2: Disc bulge, endplate proliferation, and facet arthropathy mildly narrows the central canal and moderately narrows right foramina. L2-3: Endplate proliferation and facet arthropathy moderately narrowing the foramina. L3-4: Disc bulge, facet arthropathy, redundancy of ligamentum flavum moderately narrowing the central spinal canal and severely narrowing the left and moderately narrowing right foramina. L4-5: Disc bulge, facet arthropathy, redundancy ligamentum flavum mildly narrowing the central canal and moderately narrowing the left greater than right foramina. L5-S1: No significant stenosis. Procedure Note Kellie Li MD - 10/10/2021 EXAMINATION: REQUEST FOR 2ND READ MR SPINE CLINICAL HISTORY: Concerned might have more going on than was previously diagnosed; Sending Institution [facility]; Date of [id number]; I believe a reinterpretation of this exam may alter care of Patient.Yes; Concerned might have more going on than was previously diagnosed TECHNIQUE: Reinterpretation of the thoracic and lumbar spine without contrast.Somewhat thick imaging at 3 mm sagittal with 0.6 skip and 5 mm axial with a 1 mmskip in the thoracic spine and 4 mm thick with a 0.8 skip sagittal and 4 mm with 1mm skip axials in the lumbar spine. COMPARISON: CT abdomen and pelvis 09/12/2021. FINDINGS: Thoracic spine: Rightward convex curvature of the thoracic spine.Multilevel disc degeneration with loss of normal T2 signal within the disc space anddisc height loss greater on concave portion of the curvature. Endplate marrowedema at T9 and T9-10 related to disc degeneration. Thoracic cord signal isnormal. Multiple disc herniations including T6-7, T7-8, T8-9, T9-10, T10 11minimally narrowing the central canal. Facet arthropathy moderately narrows theleft foramina at T6-7, T7-8, T9-10 and severely narrows the left foramina [id number]. Lumbar spine: A transitional situation is present with the transverseprocesses of L5 articulating with the sacral ala bilaterally but with a completedisc space at L5-S1. Leftward convex curvature of the upper lumbar spine with rightwardconvex curvature of the lower lumbar spine. Mild anterolisthesis of T12 withrespect to L1 on a degenerative basis. Mild retrolisthesis of and L2 with respect toL3, L3 with respect to L4 on a degenerative basis. Endplate marrow fatty changeand sclerosis greater on concave portions of the curvature related toasymmetric disc degeneration. The conus is normal in signal terminating at L1. There is a mixed signalT1 intermediate and T2 hyperintense subdural collection along the dorsal andleft lateral aspect of the spinal canal extending from L2 through L3. Thesubdural collection moderately narrows the spinal canal. Evidence of priorsurgical posterior decompression at L2-3. T12-L1: Endplate proliferation and facet arthropathy moderately narrowsthe right and mildly narrows the left foramina. L1-2: Disc bulge, endplate proliferation, and facet arthropathy mildlynarrows the central canal and moderately narrows right foramina. L2-3: Endplate proliferation and facet arthropathy moderately narrowingthe foramina. L3-4: Disc bulge, facet arthropathy, redundancy of ligamentum flavummoderately narrowing the central spinal canal and severely narrowing the left and moderately narrowing right foramina. L4-5: Disc bulge, facet arthropathy, redundancy ligamentum flavum mildly narrowing the central canal and moderately narrowing the left greater thanright foramina. L5-S1: No significant stenosis. IMPRESSION Small subdural collection moderately narrowing the spinal canal from [id number] L3. This most likely represents blood products, question recentintervention. Follow-up examination could be done with contrast to establishresolution. Thoracic and lumbar spondylosis. Thank you for letting us participate in the care of this patient. If youare a health care provider and have any questions regarding this report,please contact the number below. For patients who have questions please contactthe health care trainer that requested your imaging first. Santana Cordova GUARD CHIEF IMG OUTSIDE INTERP RETATION ORDERABLES documented in this encounter Visit Diagnoses Diagnosis Scoliosis, unspecified scoliosis type, unspecified spinal region documented in this encounter
--- OUTSIDE RECORDS SUMMARY | 2024-05-07 12:07 | XMS_ITS | Encounter Summary ---
[place] [address] Care Team Providers Care Mh Teacher Name Role Phone ArtSantana CODEY Primary Care Provider [phone] Reason for Referral * Allergy Testing (Routine) - Closed Specialty Diagnoses / Procedures Referred By Obed latif Referred To Contact Allergy Diagnoses Abdominal pain, unspecified abdominal location Steph Cisse PA [address] [place] [address] [facility] [place] [place] Allergy [address] [place] [address] Referral ID Status Reason Start Date Expiration Date V isits Requested Visits Authorized [id number] Closed Consult, Test & Treat PCP Updated and/or Approved 12/06/2021 12/06/2022 6 6 Encounter Details Date Type Department Care Team (Late st Contact Info) Description 12/06/2021 Transcribe Orders eDH Incoming Referrals [phone] Steph Cisse PA [facility] [address] [place] [id number] Abdominal pain, unspecified abdominal location Social History Tobacco Use Types Packs/Day Years Used Date Smoking Tobacco: Never Assessed Sex and Gender Information Value Date Recorded Sex Assigned at Not on file Gender Identity Not on file Sexual Orientation Not on file documented as of this encounter Plan of Treatment Scheduled Referrals Name Type Priority Associated Diagnoses Orde r Schedule Referral to Allergy Outpatient Referral Routine Abdominal pain, unspecified abdominal location Ordered: 12/06/2021 documented as of this encounter Visit Diagnoses Diagnosis Abdominal pain, unspecified abdominal location documented in this encounter Care Teams Mh Teacher Relationship Specialty Start Date End Date Santana Cordova APRN [address] [place] [address] PCP - General Family Medicine 10/16/21 documented as of this encounter
--- OUTSIDE RECORDS SUMMARY | 2024-05-07 12:07 | XMS_ITS | Encounter Summary ---
Author Organization [facility] Address [facility] [address] Care Team Providers Care Grinder Set Up Operator Jig Name Role Phone Unavailable Primary Care Provider Unavailabl e Encounter Details Date Type Department Care Team (Late st Contact Info) Description 09/21/2021 Ancillary Procedure Radiology at [facility] [address] [place] [address] Spencer Jacques MD [address] [place] [address] Social History Tobacco Use Types Packs/Day Years [...] LIBRARY STORAGE ONLY MR SPINE Routine 09/21/2021 12:00 AM EDT documented in this encounter Results * Film Library- Storage Only MR Spine (09/21/2021 12:00 AM EDT) Narrative RAD - 09/28/2021 11:05 AM EDT This exam is auto-finalizing. It's purpose is for storage only. Spencer Jacques MD IMG FILM LIBRARY ORD ERABLES [place], [place] documented in this encounter Visit Diagnoses Not on filedocumented in this encounter
[2024-05-07 18:06] LABS: PSA, Screening 4.7 ng/mL (<=4.5)
== END 2024-05-07 12:04 | disposition home or self-care (01) ==
LOC: LBO 12:04
PROVIDERS: PCP Nurse Practitioner Family; Visit Provider Nurse Practitioner Family
DX: Z13.1 Encounter for screening for diabetes mellitus (principal); Z12.5 Encounter for screening for malignant neoplasm of prostate
CPT/HCPCS: 36415; 80048; 84153

== ENCOUNTER → 2024-05-24 14:20 | Outpatient (BNVA) | payer MEDICARE, BC, OTHER, SELFPAY | PROVIDERS: PCP Nurse Practitioner Family; Referring Provider Nurse Practitioner Family; Visit Provider Physician Assistant Surgical | DX: R05.3 Chronic cough (principal); G47.33 Obstructive sleep apnea (adult) (pediatric) | CPT/HCPCS: 99214 ==

== ENCOUNTER → 2024-06-14 09:08 | Outpatient (BNVA) | payer MEDICARE, BC, OTHER, SELFPAY | PROVIDERS: PCP Nurse Practitioner Family; Referring Provider Nurse Practitioner Family; Visit Provider Psychiatry & Neurology Neurology | DX: R26.81 Unsteadiness on feet (principal); G20.A1 Parkinson's disease without dyskinesia, without mention of fluctuations; R41.3 Other amnesia; H91.93 Unspecified hearing loss, bilateral | CPT/HCPCS: 99215 ==

== ENCOUNTER → 2024-08-10 10:54 | Outpatient (BNVA) | payer MEDICARE, BC, SELFPAY | PROVIDERS: PCP Nurse Practitioner Family; Referring Provider Nurse Practitioner Family; Visit Provider Psychiatry & Neurology Neurology | DX: R26.81 Unsteadiness on feet (principal); G20.A1 Parkinson's disease without dyskinesia, without mention of fluctuations; F41.3 Other mixed anxiety disorders; H91.93 Unspecified hearing loss, bilateral | CPT/HCPCS: 99214 ==

== ENCOUNTER → 2024-10-12 12:14 | Outpatient (BNVA) | payer MEDICARE, BC, OTHER, SELFPAY | PROVIDERS: PCP Nurse Practitioner Family; Visit Provider Psychiatry & Neurology Neurology | DX: R26.81 Unsteadiness on feet (principal); G20.A1 Parkinson's disease without dyskinesia, without mention of fluctuations; R41.3 Other amnesia; H91.90 Unspecified hearing loss, unspecified ear; R31.9 Hematuria, unspecified; I10 Essential (primary) hypertension | CPT/HCPCS: 99214 ==

== ENCOUNTER 2024-10-12 15:38 | Outpatient (REF) | payer MEDICARE, OTHER, SELFPAY ==
[2024-10-12 16:46] LABS: Bilirubin Negative (Negative); Blood Negative (Negative); Clarity Clear (Clear); Glucose Negative (Negative); Ketones Trace mg/dL (Negative); Leukocyte Esterase Negative (Negative); Nitrite Negative (Negative); Urobilinogen 0.2 mg/dL (Up to 0.2); pH 5.5 (5-8)
== END 2024-10-12 15:39 | disposition home or self-care (01) ==
LOC: LBN 15:38
PROVIDERS: PCP Nurse Practitioner Family; Visit Provider Psychiatry & Neurology Neurology
DX: R31.9 Hematuria, unspecified (principal)
CPT/HCPCS: 81003

== ENCOUNTER 2024-10-22 11:15 | Outpatient (CLI) | payer MEDICARE, OTHER, SELFPAY ==
[2024-10-22 12:24] LABS: Anion Gap 8.4 mmol/L (3-11); BUN 20 mg/dL (7-18); CO2 28.6 mmol/L (21.0-32.0); CREATININE 1.3 mg/dL (0.70-1.30); Calcium 9.1 mg/dL (8.5-10.1); Calculated LDL 140 mg/dL (<100); Chloride 103 mmol/L (98-107); Cholesterol 205 mg/dL (<200); Glucose 97 mg/dL (74-106); HDL Cholesterol 32 mg/dL (>or=40); Potassium 4.1 mmol/L (3.5-5.1); Sodium 140 mmol/L (136-145); TSH (W/Ref FT4) 3.21 uIU/mL (0.36-3.74); Triglyceride 168 mg/dL (<150)
[2024-10-22 18:56] LABS: PSA, Screening 9.3 ng/mL (<=6.5)
== END 2024-10-22 11:16 | disposition home or self-care (01) ==
LOC: LBO 11:15
PROVIDERS: PCP Nurse Practitioner Family; Visit Provider Nurse Practitioner Family
DX: Z13.6 Encounter for screening for cardiovascular disorders (principal); Z13.1 Encounter for screening for diabetes mellitus; Z12.5 Encounter for screening for malignant neoplasm of prostate; E03.9 Hypothyroidism, unspecified
CPT/HCPCS: 36415; 80048; 80061; 84153; 84443

== ENCOUNTER 2024-12-20 16:57 | Outpatient (REF) | payer MEDICARE, OTHER, SELFPAY | END 2024-12-20 16:58 | disposition home or self-care (01) | LOC: LBN 16:57 | PROVIDERS: PCP Nurse Practitioner Family; Visit Provider Nurse Practitioner Family | DX: L72.3 Sebaceous cyst (principal) | CPT/HCPCS: 87070; 87205 ==

== ENCOUNTER → 2025-01-27 10:40 | Outpatient (BNVA) | payer MEDICARE, BC, OTHER, SELFPAY | PROVIDERS: PCP Nurse Practitioner Family; Referring Provider Nurse Practitioner Family; Visit Provider Physical Therapy Assistant | DX: L91.8 Other hypertrophic disorders of the skin (principal); L72.0 Epidermal cyst | CPT/HCPCS: 99212 ==

== ENCOUNTER → 2025-02-07 14:30 | Outpatient (BNVA) | payer MEDICARE, BC, OTHER, SELFPAY | PROVIDERS: PCP Nurse Practitioner Family; Visit Provider Psychiatry & Neurology Neurology | DX: G20.A1 Parkinson's disease without dyskinesia, without mention of fluctuations (principal); R26.81 Unsteadiness on feet; R41.3 Other amnesia; H91.90 Unspecified hearing loss, unspecified ear | CPT/HCPCS: 99214 ==

== ENCOUNTER 2025-03-01 09:22 | Day surgery (SDC) | payer MEDICARE, BC, OTHER, SELFPAY ==
--- NOTE | 2025-03-01 06:20 | ANES.PREOP_ITS ---
General Info Height: 5 ft 5 in Weight: 100.698 kg Body Mass Index (BMI): 36.9 Surgical Procedure: Operation Date: 03/01/25 10:40 Proposed Procedure Side Surgeon p Multiple Skin Lesion Excision, Scar Revision & Cyst Excision Mikey Skelton MD Meds Allergies and Home Medications Allergies Allergy/AdvReac Type Severity Reaction Status Date / Time Iodinated Contrast Media Allergy Severe Anaphylaxis Verified 03/01/25 10:08 Sulfa (Sulfonamide Allergy Mild Rash Verified 03/01/25 10:08 Antibiotics) gabapentin AdvReac Intermediate Other (See Verified 03/01/25 10:08 Comment) oxycodone AdvReac Intermediate Nausea Verified 03/01/25 10:08 IV Contrast Allergy Anaphylaxis Uncoded 03/01/25 10:08 Home Medication ?Medication ?Instructions ?Recorded ketoconazole 2 % shampoo 1 applic topical ONCE #120 m L 09/19/23 cyclobenzaprine 10 mg tablet 10 mg PO TID PRN muscle s pasm #90 10/17/23 tabs albuterol sulfate 90 mcg/actuation 2 puff inhalation Q ID PRN 10/22/23 aerosol inhaler shortness of breath or wheez ing #8.5 grams clotrimazole 1 % topical cream 1 applic topical TID 7 days #30 12/25/23 grams prochlorperazine maleate 5 mg 5 mg PO TID PRN nausea a nd 01/19/24 tablet (Compazine) vomiting #7 tabs levothyroxine 100 mcg capsule 100 mcg PO DAILY #90 cap s 05/07/24 omeprazole 40 mg capsule,delayed 40 mg PO DAILY #90 ca ps 05/07/24 release amlodipine 5 mg tablet 5 mg PO DAILY #90 tabs 06/25 diclofenac sodium 75 mg 75 mg PO BID #180 tabs 11/03 tablet,delayed release metoprolol tartrate 25 mg tablet 25 mg PO BID #180 tab s 11/03/24 carbidopa 25 mg-levodopa 100 mg 2 tab PO BID #360 tabs 02/07/25 tablet Current Visit Medications: Current Medications Generic Name Dose Route Start Last Admin Trade Name Freq PRN Reason Stop Dose Admin Acetaminophen 1,000 mg 03/01/25 06:00 Acetaminophen 500 Mg Tab PO 03/01/25 23:59 PREOP JOSTIN Celecoxib 200 mg 03/01/25 06:00 Celecoxib 200 Mg Cap PO 10/21/25 23:59 PREOP JOSTIN Gabapentin 300 mg 03/01/25 06:00 Gabapentin 300 Mg Cap PO 03/01/25 23:59 PREOP JOSTIN Ringer's Solution 1,000 mls @ 80 mls/hr 03/01/25 06:00 IV 03/01/25 23:59 INFUSION JOSTIN IV Miscellaneous Supplies 1 each 03/01/25 06:00 Iv Access IV 03/01/25 23:59 DIRECTED JOSTIN Sodium Chloride 0 ml 03/01/25 06:00 Normal Saline Flush 10 Ml Syr IV 03/01/25 23:59 PRN PRN Sodium Chloride 0 ml 03/01/25 06:00 Normal Saline 10 Ml Vial IJ 03/01/25 23:59 DIRECTED PRN Sterile Water 0 ml 03/01/25 06:00 Water,Injection,Sterile 10 Ml Vial IJ 03/01/25 23:59 DIRECTED PRN PFSH Active Problems Active Problems: Problem Status Onset Code Hematuria Acute R31.9 Hearing loss Acute H91.90 Memory loss Acute R41.3 Parkinson disease Chronic G20.A1 Bilateral ankle pain Acute M25.571, M25.572 Osteoarthritis of left knee Acute M17.12 Family history of colon cancer in mother Acute Z80.0 Fungal dermatitis Acute B36.9 Chafing Acute L30.4 Bilateral knee pain Acute M25.561, M25.562 Shingles Acute B02.9 Pain Acute R52 Acquired skin tag Acute L91.8 Lipoma of abdominal wall Acute D17.1 Solar elastosis Acute L57.8 History of sun-damaged skin Acute Z87.2 Seborrheic keratoses Acute L82.1 Actinic keratoses Acute L57.0 Skin tags, multiple acquired Acute L91.8 Epidermal cyst Acute L72.0 Lipoma Acute D17.9 FUNMILAYO (obstructive sleep apnea) Chronic G47.33 Hypertensive disorder Chronic I10 Arthritis Acute M19.90 Tremor Acute R25.1 Sebaceous cyst Acute L72.3 Hematoma of left foot Acute S90.32XA Muscle spasm Acute M62.838 LLQ abdominal pain Acute R10.32 Gait instability Acute R26.81 Lumbar post-laminectomy syndrome Acute M96.1 Lumbar degenerative disc disease Acute M51.36 Mixed hearing loss, bilateral Acute H90.6 Chronic cough Acute R05.3 Back pain Acute M54.9 Scoliosis Acute M41.9 Acquired elongated uvula Acute 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 Bilateral tympanic membrane perforation Acute H72.93 Acute suppurative otitis media without spontaneous rupture of ear drum, bilateral Acute H66.003 Hemochromatosis Acute E83.119 Osteoarthritis Chronic M19.90 Depression Chronic F32.A Anxiety disorder Acute F41.9 Mild chronic gastritis Acute K29.50 Esophagitis, [place] grade A Acute K20.80 GERD (gastroesophageal reflux disease) Chronic K21.9 Hypothyroidism Chronic E03.9 Essential hypertension Acute I10 Medical History Medical History Hemochromatosis tx [id number] Leg pain Numbness of right foot Low back pain History of depression Chronic GERD Surgical History Surgical History (Updated 02/28/25 @ 13:12 by Andrey Ramos) History of ear surgery Hx of neoplasm L shoulder History of esophagogastroduodenoscopy (~01/2024) History of colonoscopy (~01/2024) Hx of hand surgery H/O laminectomy History of back surgery (~05/23/92) H/O hernia repair (~04/22/13) H/O shoulder surgery (~02/06/16) Tobacco Smoking/Tobacco Use Status: Former Tobacco Use Smokeless tobacco user: chewing tobacco Passive smoking exposure: Yes Second hand exposure: Yes Alcohol Alcohol Intake: current Alcohol intake frequency: holidays/special occasions only Substance Use Substance use: Never Substance use type: does not use Vital Signs and Lab Results Vital Signs Most Recent Vital Signs in EMR: Temp Pulse Resp BP Pulse Ox 36.3 C L 66 18 107/83 99 03/01/25 09:45 03/01/25 09:45 03/01/25 09:45 03/01/25 09:45 03/01/25 09:45 Anesthesia Assessment and Plan Anesthesia History Personal History: No History of Anesthesia Complications Family History: No Family History of Anesthesia Complications Exercise Tolerance Exercise Tolerance: Metabolic Equivalents>4 Implantable Cardiac Device Does patient have a Pacemaker or an ICD?: No Airway Exam Known Difficult Airway: No Mallampati Class: 2 Mouth Opening: Normal (> 3cm) Thyromental Distance: Greater than 3 cm Neck Range of Motion: Full ROM Neck Circumference: Normal Teeth Condition: Normal Dentition and Generalized Poor Dentition Anesthesia Plan Resuscitation Status: Full Code Anesthesia Technique: General Anesthesia Airway Planned: Endotracheal Tube Monitors Used: Standard Monitors Preoperative Comments:: 69 yo for skin lesion removal. Sig PMHx: HTN (amlodipine, metoprolol), FUNMILAYO, GERD, tremor, Parkinson's (carbidopa-levodpoa), anxiety/depression, hypothyroid (on replacement), hemachromatosis. former smoker, current chewing tobacco, occ EtOH. ECG: sinus tach. Previous anes: - lipoma excision, glide 3 grade 1, masked with OPA.
[2025-03-01 09:45] VITALS: BP 107/83; PULSE 66; RESP 18; TEMP 36.3; O2SAT 99
[2025-03-01] MEDS: Acetaminophen 500 MG TAB 1000 MG PO (10:24)
[2025-03-01] MEDS: Celecoxib 200 MG CAP PO (10:24)
[2025-03-01] MEDS: Lactated Ringers 1,000 ML 80 ML IV (10:40)
--- NOTE | 2025-03-01 11:22 | W.PREOPHP ---
Assessment and Plan Assessment and plan (1) Epidermal cyst: Status: Acute Assessment and plan: The seem most consistent with incompletely excised epidermal inclusion cyst, complicated by some keloid scarring. I do think he benefit from excision and primary closure of these to help minimize complications and long-term sequelae of it. We talked about the nature of the procedure, what to expect in terms of the recovery, and I think he has a good appreciation of this. We can proceed with excision and closure as planned. History of Present Illness History of Present Illness Chief Complaint: Sebaceous cyst from center of back, and scar on right shoulder Narrative: Jeremias is 69 years old. He has had multiple recurrent episodes of inflammation of what appears to be a sebaceous cyst in the central portion of his back, essentially between his shoulder blades. It looks like this was at least drained, if not excised and removed previously. The patient and his daughter report that intermittently, it would become red, inflamed, and drained purulent liquid. He has had a similar lesion on the right trapezoid, which is complicated by mild keloid scarring PFS All Active Problems Hematuria (Acute) Hearing loss (Acute) Memory loss (Acute) Parkinson disease (Chronic) Bilateral ankle pain (Acute) Osteoarthritis of left knee (Acute) Family history of colon cancer in mother (Acute) Fungal dermatitis (Acute) Chafing (Acute) Bilateral knee pain (Acute) Shingles (Acute) Pain (Acute) Acquired skin tag (Acute) Lipoma of abdominal wall (Acute) Solar elastosis (Acute) History of sun-damaged skin (Acute) Seborrheic keratoses (Acute) Actinic keratoses (Acute) Skin tags, multiple acquired (Acute) Epidermal cyst (Acute) Lipoma (Acute) FUNMILAYO (obstructive sleep apnea) (Chronic) Hypertensive disorder (Chronic) Arthritis (Acute) Tremor (Acute) Sebaceous cyst (Acute) Hematoma of left foot (Acute) Muscle spasm (Acute) LLQ abdominal pain (Acute) Gait instability (Acute) Lumbar post-laminectomy syndrome (Acute) Lumbar degenerative disc disease (Acute) Mixed hearing loss, bilateral (Acute) Chronic cough (Acute) Thought to be due to elongated uvula and pulmonary problem. 2024: Uvula shortened. 95% symptom free now. Back pain (Acute) Scoliosis (Acute) Acquired elongated uvula (Acute) uvulaplasty complete in 2024. Bilateral tympanic membrane perforation (Acute) Acute suppurative otitis media without spontaneous rupture of ear drum, bilateral (Acute) Hemochromatosis (Acute) Osteoarthritis (Chronic) Depression (Chronic) Anxiety disorder (Acute) Mild chronic gastritis (Acute) Esophagitis, [place] grade A (Acute) GERD (gastroesophageal reflux disease) (Chronic) Hypothyroidism (Chronic) Essential hypertension (Acute) Medical History Hemochromatosis tx [id number] Leg pain Numbness of right foot Low back pain History of depression Chronic GERD Surgical History History of ear surgery Hx of neoplasm L shoulder History of esophagogastroduodenoscopy (~01/2024) History of colonoscopy (~01/2024) Hx of hand surgery H/O laminectomy History of back surgery (~05/23/92) H/O hernia repair (~04/22/13) H/O shoulder surgery (~02/06/16) Family History Mother , 90 Alcohol use disorder Depression Throat cancer Father , 54 Alcohol use disorder Heart disease Sister , 40 Aneurysm Son No problems noted. Daughter Depression Social History Smoking/Tobacco Use Status: Former Tobacco Use tobacco type: cigarettes and cigars Quit Date: 05/12/79 Tobacco: How many years used: 2 Smokeless tobacco user: chewing tobacco Quit status: has quit before Second Hand Exposure: Yes Smoking risk assessment performed?: Yes Alcohol Intake: current Alcohol Intake frequency: holidays/special occasions only Drug use: Never Substance use type: does not use Counseling given: No Details: alcohol: months ago Adopted: No Caregiver/Support person: No Household members: none Housing: house Number of Children: 2 number of grandchildren: 2 Communication Needs: Hard of Hearing and Corrective Lenses Education Level: high school Do you need help understanding health information?: Often current occupation: Retired Pets and animals: No Sexually active: No Do you think of yourself as: straight/heterosexual Current gender identity: male What is your relationship status?: How often do you talk on the phone with friends or family?: never How often do you get together with friends or relatives?: twice per week How often do you attend rastafarian or protestant services?: decline to answer Do you belong to any clubs or organized social groups?: no Panel score (0-1 are the most socially isolated patients): 0 What type of physical activity do you participate in: none Frequency: does not exercise Hanny/Voodoo: Non islam Special hanny needs: No Agree to transfusion: No Seatbelt use: always Helmet use: No Drive intox or ride w/intox armored car driver: No Working smoke detector in home: No Carbon monox detector in home: No Firearms in home: No Do you feel safe at home: Yes Do you feel safe in your relationship?: Yes Victim of physical abuse: No Victim of emotional abuse: Yes Victim of sexual abuse: No Would you like helpful sources: No Additional Social history: UTAP Meds Allergies and Home Medications Allergies Allergy/AdvReac Type Severity Reaction Status Date / Time Iodinated Contrast Media Allergy Severe Anaphylaxis Verified 03/01/25 10:08 Sulfa (Sulfonamide Allergy Mild Rash Verified 03/01/25 10:08 Antibiotics) gabapentin AdvReac Intermediate Other (See Verified 03/01/25 10:08 Comment) oxycodone AdvReac Intermediate Nausea Verified 03/01/25 10:08 IV Contrast Allergy Anaphylaxis Uncoded 03/01/25 10:08 Home Medications ?Medication ?Instructions ?Recorded ?Confirmed ?Type ketoconazole 2 % shampoo 1 applic topical ONCE #120 mL 09/19/23 03/01/25 Rx cyclobenzaprine 10 mg tablet 10 mg PO TID PRN muscle spasm #90 10/17/23 03/01/25 Rx tabs albuterol sulfate 90 mcg/actuation 2 puff inhalation QID PRN 10/22/23 03/01/25 Rx aerosol inhaler shortness of breath or wheezing #8.5 grams clotrimazole 1 % topical cream 1 applic topical TID 7 days #30 12/25/23 03/01/25 Rx grams prochlorperazine maleate 5 mg 5 mg PO TID PRN nausea and 01/19/24 03/01/25 Rx tablet (Compazine) vomiting #7 tabs levothyroxine 100 mcg capsule 100 mcg PO DAILY #90 caps 05/07/24 03/01/25 Rx omeprazole 40 mg capsule,delayed 40 mg PO DAILY #90 caps 05/07/24 03/01/25 Rx release amlodipine 5 mg tablet 5 mg PO DAILY #90 tabs 06/25/24 03/01/25 Rx diclofenac sodium 75 mg 75 mg PO BID #180 tabs 11/03/24 02/28/25 Rx tablet,delayed release metoprolol tartrate 25 mg tablet 25 mg PO BID #180 tabs 11/03/24 03/01/25 Rx carbidopa 25 mg-levodopa 100 mg 2 tab PO BID #360 tabs 02/07/25 03/01/25 Rx tablet Exam Const General: cooperative and not in acute distress Neck Neck: normal visual inspection, no lymphadenopathy and supple Resp Effort & Inspection: normal respiratory effort Auscultation: clear to auscultation bilaterally Cardio Jugular venous pressure: no JVD Rate: regular rate Rhythm: regular rhythm Heart Sounds: S1 normal and S2 normal GI Inspection: normal to inspection Palpation: soft, no guarding, no hernias and nontender Percussion: normal to percussion Auscultation: normal bowel sounds Skin Other: In the center of his back is some thickened tissue with previous incision and some associated induration. It is not tender. Seems most consistent with a retained sebaceous cyst. There are some keloid scarring at the base of the right neck, towards the right trapezoid. There is no erythema. Neuro General: patient alert, patient awake and patient oriented x3 Psych Appearance: grossly normal Results Last Vital Signs Temp 97.3 F L 03/01/25 09:45 Pulse 66 03/01/25 09:45 Resp 18 03/01/25 09:45 BP 107/83 03/01/25 09:45 Pulse Ox 99 03/01/25 09:45
--- NOTE | 2025-03-01 11:25 | W.PM.DSUDISC ---
Date of service: 03/01/25 Discharge Plan Disposition Patient Disposition: Home Condition: Good Discharge Details Reason For Visit: Excision and closure of epidermal inclusion cysts Attending Provider: Mikey Skelton Primary Care Provider: Santana Cordova Home Meds and New Rx's Prescriptions: Continued omeprazole 40 mg capsule,delayed release(DR/EC) 40 mg PO DAILY Qty: 90 3RF levothyroxine 100 mcg capsule 100 mcg PO DAILY Qty: 90 3RF clotrimazole 1 % cream 1 applic topical TID 7 Days Qty: 30 2RF Patient Comments: Not using currently carbidopa-levodopa 25-100 mg tablet 2 tab PO BID Qty: 360 3RF Rx Instructions: Take first thing in am and then at noon (about 4-5 hours apart). cyclobenzaprine 10 mg tablet 10 mg PO TID PRN (Reason: muscle spasm) Qty: 90 2RF ketoconazole 2 % shampoo 1 applic topical ONCE Qty: 120 8RF Rx Instructions: Use one time per week. albuterol sulfate 90 mcg/actuation HFA aerosol inhaler 2 puff inhalation QID PRN (Reason: shortness of breath or wheezing) Qty: 8.5 12RF Patient Comments: Pt not taking prochlorperazine maleate [Compazine] 5 mg tablet 5 mg PO TID PRN (Reason: nausea and vomiting) Qty: 7 0RF amlodipine 5 mg tablet 5 mg PO DAILY Qty: 90 3RF metoprolol tartrate 25 mg tablet 25 mg PO BID Qty: 180 3RF diclofenac sodium 75 mg tablet,delayed release (DR/EC) 75 mg PO BID Qty: 180 3RF Discharge Instructions Additional Instructions: Wean, it was nice meeting you today, and hope you feel well after the procedure. As you recall, things went very smoothly. I excised the old scar tissue, and the underlying cyst from the lower right portion of your neck. This is closed with a few stitches. Also excised remnants of a sebaceous cyst and scar tissue from the midportion of your back. This should prevent it from any future drainage. Similarly, there are stitches at this site as well. A few centimeters below this was another smaller sebaceous cyst, that I did excising close. There are stitches at this site. Finally, the lower portion of your back was a skin tag. This was excised. It does not require any stitches. You have bandages over all of the sites that can stay in place until tomorrow. Then they should be removed, and all of the incision should be washed with warm soapy water. You are welcome to replace Band-Aids over top if that provides comfort, or if there is any drainage. Alternatively, if everything is dry and comfortable, these do not need any specific bandaging. You should shower every day. Using ice packs over the incisions may also provide comfort as the numbing medications wear off. If you need anything or have any concerns at all, please do not hesitate to call. Otherwise we look forward to seeing you at your follow-up visit. 1. Resume all of your regular medications. 2. Use ice packs over the incisions to help with pain and swelling. 3. Alternate [id number] Tylenol and ibuprofen every 6 hours for the first 2 days, then use them as needed. 4. Leave bandages in place for 24 hours, then remove. 5. Shower with warm soapy water. Pat dry. You are welcome to replace Band-Aids if that is more comfortable. 6. No soaking or tub baths until I see you in the office. 7. No heavy lifting until I see you in the office. 8.Call the office (or go directly to the emergency room after hours) if you notice any of the following: Develop chills (warm to touch), or if you have a thermometer and your temperature is above 101 Difficulty breathing or difficultly swallowing Persistent vomiting Any bleeding ? exceeding one tablespoon 6. Call your physician if the site where your intravenous was started becomes red, swollen, painful, and warm to touch. Stand Alone Forms: Anesthesia Discharge InstArmond Osorio (DSU) Referrals: Mikey Skelton MD [ [facility] STAFF PHYSICIAN, Surgery] - 03/14/25 Activity:: Activity as Tolerated Remove Dressings/Wound Care:: 24 hours Shower/Bathe:: 24 hours Diet:: As Tolerated DS: Diagnosis Discharge Diagnosis (1) Epidermal cyst: Status: Acute Asessment and Plan: Outpatient follow-up
[2025-03-01] MEDS: Bupivacaine LIPOSOME/PF 133 MG/10 ML VIAL IJ (12:16)
[2025-03-01] MEDS: Bupivacaine 0.25% Pres-Free 30 ML VIAL (12:17)
--- NOTE | 2025-03-01 12:37 | W.PM.OP ---
Operative Note Operative Note PRE-OP DIAGNOSIS: Epidermal inclusion cysts and skin tag POST-OP DIAGNOSIS: same PROCEDURE: Excision and closure of epidermal inclusion cyst x 3, and excision of skin tag SURGEON: Mikey Skelton HIGH SCHOOL AGRICULTURE TEACHER: Brigitte Rodriguez ANESTHESIA TYPE: Local By Surgeon Refer to Anesthesia Record ESTIMATED BLOOD LOSS: 20 PATHOLOGY: none sent COMPLICATIONS: None Patient was transported to: same day Patient's condition: stable Indications: Jeremias is a 69-year-old male with symptomatic sebaceous cyst on his back x 2, keloid type scarring, as well as a skin tag Procedure Description: I met with Kathryn in the preoperative area, and we reviewed his complaints together. He described discomfort associated with the lesion almost on the base of the right side of his neck, 2 lesions more centrally located almost between the scapula, and a skin tag at the base of his lower back, almost overlying his sacrum. He is innumerable other skin tags, that have been treated with various forms of therapy, but generally those do not cause any significant symptoms. We agreed that excision of the 4 lesions described above would be the most practical approach here. I explained the risks and the benefits of this approach, and Jeremias was able to provide informed consent. We then moved back into the operating room, and he was assisted to the left lateral decubitus position. Great care was taken to ensure that he was supported and comfortable prior to starting any of the procedure. I then prepped his entire back, and the lesions in question were draped out. I started with the lesion at the base of the neck. It seems like this was not old incision and drainage site from previous sebaceous cyst. I established a generous field block using local anesthetic, and then incised the skin on each side of this down into the subcutaneous fat. Semielliptical incisions were used for cosmesis. Electrocautery was used to ensure hemostasis, and the surrounding and underlying soft tissues were carefully dissected away. Once the lesion was completely excised, the wound was irrigated clean. The base of it appeared to be healthy subcutaneous fat. The deeper skin was reapproximated with interrupted Vicryl sutures, and nylon suture was used to close the skin in a simple interrupted fashion. I then moved down to the lesion between the scapula. Again, there were actually 2 here, 1 is little more cephalad and 1 is a little more caudad. Again, generous field blocks were used to establish anesthesia, and these 2 lesions were excised using the forementioned technique of scalpel dissection through the skin, and electrocautery in the subcutaneous tissues. The more caudal of these wounds did have well-preserved sebaceous cyst wall. Great care was taken to ensure that all of this was completely excised. The more cephalad lesion was reapproximated with interrupted Vicryl sutures at the deep level, and simple nylon stitches at the skin. The more caudal of these 2 lesions were small enough that only the skin level needed to be reapproximated with interrupted nylon's. Finally, the small skin tag in the lower portion of the back was anesthetized, and sharply excised. This did not require any closure. Bandages were applied to all of the excision sites, and Jeremias was assisted back to the regular position before transfer back to the day surgery unit. The lesion at the base of the right neck measured 3 cm long by 2 cm wide by 1 cm deep. The more cephalad lesion between the scapula was 4 cm long by 2 cm wide by 2 cm deep. The more caudal lesion was 2 cm long by 1 cm wide by 1 cm deep, and the skin tag at the lower portion of the back was 0.5 cm in its largest dimensions. Date of Procedure: 03/01/25
[2025-03-01 12:41] VITALS: BP 116/79; PULSE 72; RESP 18; TEMP 36.5; O2SAT 97
== END 2025-03-01 13:08 | disposition home or self-care (01) ==
PROVIDERS: PCP Nurse Practitioner Family; Visit Provider Surgery
PROC: (CPT 11403; principal; 2025-03-01 10:30)
DX: L72.0 Epidermal cyst (principal); L91.8 Other hypertrophic disorders of the skin
CPT/HCPCS: 11403; 11402; 12032; 11200; J0665; J0666; J1100; J2405

== ENCOUNTER → 2025-03-10 10:34 | Outpatient (BNVA) | payer MEDICARE, OTHER, SELFPAY | PROVIDERS: PCP Nurse Practitioner Family; Referring Provider Nurse Practitioner Family; Visit Provider Surgery | DX: Z09 Encounter for follow-up examination after completed treatment for conditions other than malignant neoplasm (principal); K22.89 Other specified disease of esophagus; L72.0 Epidermal cyst | CPT/HCPCS: 99024 ==

== ENCOUNTER → 2025-04-11 08:57 | Outpatient (BNVA) | payer MEDICARE, OTHER, SELFPAY | PROVIDERS: PCP Nurse Practitioner Family; Referring Provider Nurse Practitioner Family; Visit Provider Nurse Practitioner Gerontology | DX: R31.9 Hematuria, unspecified (principal); N40.1 Benign prostatic hyperplasia with lower urinary tract symptoms; N13.8 Other obstructive and reflux uropathy; R97.20 Elevated prostate specific antigen [PSA]; G20.C Parkinsonism, unspecified; I10 Essential (primary) hypertension | CPT/HCPCS: 99215; 81002; 51798 ==

== ENCOUNTER 2025-04-11 10:35 | Outpatient (CLI) | payer MEDICARE, OTHER, SELFPAY ==
[2025-04-11 18:10] LABS: PSA, Diagnostic 9.9 ng/mL (<=6.5)
== END 2025-04-11 10:36 | disposition home or self-care (01) ==
LOC: LBO 10:36
PROVIDERS: PCP Nurse Practitioner Family; Visit Provider Nurse Practitioner Gerontology
DX: R97.20 Elevated prostate specific antigen [PSA] (principal)
CPT/HCPCS: 36415; 51798; 81002; 99215; 84153

== ENCOUNTER 2025-04-28 11:54 | Outpatient (REF) | payer MEDICARE, OTHER, SELFPAY | END 2025-04-28 11:55 | disposition home or self-care (01) | LOC: LBN 11:54 | PROVIDERS: PCP Nurse Practitioner Family; Visit Provider Nurse Practitioner Family | DX: L72.3 Sebaceous cyst (principal) | CPT/HCPCS: 87077; 87070; 87186; 87205 ==

== ENCOUNTER → 2025-05-03 10:13 | Outpatient (BNVA) | payer MEDICARE, BC, OTHER, SELFPAY | PROVIDERS: PCP Nurse Practitioner Family; Referring Provider Nurse Practitioner Family; Visit Provider Student in an Organized Health Care Education/Training Program | DX: L72.0 Epidermal cyst (principal) | CPT/HCPCS: 99213 ==

== ENCOUNTER → 2025-05-10 08:53 | Outpatient (BNVA) | payer MEDICARE, BC, OTHER, SELFPAY | PROVIDERS: PCP Nurse Practitioner Family; Referring Provider Nurse Practitioner Family; Visit Provider Student in an Organized Health Care Education/Training Program | DX: L72.0 Epidermal cyst (principal); L90.5 Scar conditions and fibrosis of skin; L98.8 Other specified disorders of the skin and subcutaneous tissue | CPT/HCPCS: 11402 ==

== ENCOUNTER 2025-05-10 09:51 | Outpatient (REF) | payer MEDICARE, OTHER, SELFPAY ==
--- NOTE | 2025-05-10 09:45 | SKI_PTH ---
PATIENT: Jeremias Portillo LOC: [facility] U#:[id number] AGE/SX: 69/M ROOM: RE05/10/[address]: Lynsey Sandoval : 1955 BED: DIS: 05/10/2025 SPEC #: [id number] RECD: 05/10/25 12:43 STATUS: ZECHARIAH REQ #: [id number] [place]: 05/10/25 09:[address]: Lynsey Sandoval DEPT: Surgical Specimen RECD BY: Chanel Crow ENTERED: 05/10/25 12:44 SP TYPE: NELLY DOTY DR: Santana Cordova, HOUSE CALLS NURSE Tissues: 1 - SKIN BIOPSY(SHAVE/PUNCH) Procedures: SKIN LEVEL 4 Comments: [id number]
== END 2025-05-10 09:52 | disposition home or self-care (01) ==
LOC: LBN 09:51
PROVIDERS: PCP Nurse Practitioner Family; Visit Provider Student in an Organized Health Care Education/Training Program
DX: L72.9 Follicular cyst of the skin and subcutaneous tissue, unspecified (principal)
CPT/HCPCS: 88305